=== PATIENT | male | born 1990 | race Caucasian/White ===

== ENCOUNTER 2024-08-06 10:08 | Observation (INO) | payer MEDICAID, SELFPAY ==
[2024-08-06] VITALS (7 sets, daily range): BP systolic 116–139; BP diastolic 80–95; PULSE 63–90; RESP 16–19; TEMP 36.6–37.5; O2SAT 97–100; BMI 28.0
--- NOTE | 2024-08-06 10:28 | EKG_ITS ---
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
[2024-08-06] MEDS: LORazepam 2 MG/ML VIAL IVP (10:40)
--- NOTE | 2024-08-06 10:40 | PC.NURSE ---
PT STATES I'M HERE TO DETOX FROM ALCOHOL. STATES DRINKING HEAVY x 6 MONTHS EVERYDAY. ALSO WITH C/O ABD PAIN, NAUSEA/VOMITING/DIARRHEA X 2 DAYS
[2024-08-06] MEDS: PANTOPRAZOLE INJ 40 MG VIAL 80 MG IV (10:41)
--- NOTE | 2024-08-06 10:41 | XR_ITS ---
Examination: Abdomen sonogram, Limited Date and time of exam: August 06, 2024 1106 hrs. Indications: Right upper abdominal pain vomiting blood beginning 2 days ago Technique: Real-time woodson scale transabdominal sonographic images of the upper abdomen obtained. Findings: Negative for gallstones No gallbladder wall edema Normal common bile duct 0.3 cm Pancreatic head 2.9 cm Liver 15.2 cm fatty infiltration irregular contour no focal liver lesions Normal hepatopedal portal venous flow Patent IVC Impression: Fatty liver, primary hepatocellular disease versus cirrhosis Negative for cholelithiasis No gallbladder wall edema, clinical correlation advised
--- NOTE | 2024-08-06 10:42 | EDNOTE_ITS ---
ED Abdominal Pain RME/HPI General Chief Complaint: Abdominal Pain Stated complaint: VOMITING BLOOD, SHAKING, ETOH WITHDRAWAL Time seen by provider: 08/06/24 10:12 Arrival date/time: 08/06/24 10:08 History of Present Illness (HPI): The patient presents with Right Upper Quadrant (RUQ) abdominal pain associated with nausea, vomiting, and diarrhea (NVD). The patient admits to being alcohol dependent and reports that they stopped drinking two days ago. There is no history of abdominal surgeries. Limitations: no limitations Related Data Previous Rx's ?Medication ?Instructions ?Recorded ibuprofen 800 mg tablet 800 mg PO TID PRN pain #30 tabs 09/06/19 pantoprazole 40 mg tablet,delayed 40 mg PO QDAY #30 tabs 11/02/23 release (Protonix) sucralfate 1 gram tablet (Carafate) 1 g PO BID #30 tabs 11/02/23 hydrocodone 5 mg-acetaminophen 325 1 tab PO BID PRN pain #4 tabs 04/12/24 mg tablet cephalexin 500 mg capsule 500 mg PO BID #20 caps 04/25/24 Allergies Allergy/AdvReac Type Severity Reaction Status Date / Time sulfamethoxazole Allergy Intermediate VOMIT Verified 08/06/24 10:10 trimethoprim Allergy Intermediate VOMIT Verified 08/06/24 10:10 Review of Systems Review of Systems Systems Reviewed: All systems reviewed, normal except as documented ED Exam General Limitations: Present no limitations General appearance: Present alert and in no apparent distress Head Head exam: Present atraumatic Eye Eye exam: Present normal appearance Neck Neck exam: Present normal inspection Respiratory Respiratory exam: Present normal lung sounds bilaterally Cardiovascular Cardiovascular exam: Present regular rate and normal rhythm Abdominal Exam Abdominal exam: Present normal bowel sounds Abdominal tenderness: Present RUQ and mild Extremities Exam Extremities exam: Present normal inspection Back Exam Back exam: Present normal inspection Neurological Exam Neurological exam: Present alert and CN II-XII intact Skin Skin exam: Present warm and dry Course Quality Measures none Orders Category Date Time Status COVID-19 Screening Questionnaire NOW Care 08/06/24 12:11 Active Supervisor Dials NOW Care 08/06/24 10:28 Active Decision to Admit X1 Care 08/06/24 12:11 Active EKG (ED ONLY) *Do not use* NOW Care 08/06/24 10:28 Completed Insert IV NOW Care 08/06/24 10:28 Active EKG (ED Only) Stat Exams 08/06/24 10:28 Draft US abdomen limited Stat Exams 08/06/24 10:41 Taken Alcohol, Blood Medical Stat Lab 08/06/24 10:40 Completed B-Type Natriuretic Peptide Stat Lab 08/06/24 10:40 Completed CBC Stat Lab 08/06/24 10:40 Completed Comprehensive Metabolic Panel Stat Lab 08/06/24 10:40 Completed Drug Screen,Urine Stat Lab 08/06/24 11:27 Completed Magnesium Stat Lab 08/06/24 10:40 Completed Partial Thromboplastin Time Stat Lab 08/06/24 10:40 Completed Prothrombin Time with INR Stat Lab 08/06/24 10:40 Completed Troponin I Stat Lab 08/06/24 10:40 Completed Urinalysis Stat Lab 08/06/24 11:27 Completed Folic Acid Med 08/06/24 11:45 Discontinued 1 mg PO X1 ONE LORazepam [Ativan Inj] Med 08/06/24 10:28 Discontinued 2 mg IVP X1 ONE Multivitamin. Med 08/06/24 11:45 Discontinued 15 ml PO X1 ONE PHENobarbital Inj 130 mg Med 08/06/24 10:40 Discontinued Sodium Chloride 0.9% Flush [NS Flush] 12 ml IVP X1 PHENobarbital Inj 130 mg Med 08/06/24 10:40 Discontinued Sodium Chloride 0.9% Flush [NS Flush] 12 ml IVP X1 Pantoprazole Inj [Protonix Inj] Med 08/06/24 10:29 Discontinued 80 mg IV X1 ONE Thiamine [Vitamin B-1] Med 08/06/24 11:45 Discontinued 100 mg PO X1 ONE Vital Signs Vital signs: Vital Signs Temperature 97.9 F 08/06/24 10:11 Pulse Rate 90 08/06/24 10:11 Respiratory Rate 17 08/06/24 10:11 Blood Pressure 130/82 08/06/24 10:11 Pulse Oximetry (%) 97 08/06/24 10:11 Oxygen Delivery Method Room Air 08/06/24 10:11 Abdominal Pain MDM Patient data External records reviewed:: [facility] previous records Clinical information provided by:: patient Social determinants that could affect healthcare access:: none Patient has the following chronic illnesses:: Alcohol dependence How is presenting disease/condition affected by chronic disease/condition?: caused by Evaluation data The following diagnostics were reviewed and interpreted by me:: lab results Lab and/or radiology exams considered but not ordered:: Not applicable Interpretation Summary: The ultrasound preliminary is only available for review at the time of admission. Patient was started on phenobarbital 260 mg IV push for his alcohol withdrawal. Also, was provided with multivitamin, thiamine and folic acid orally. Did not have any episodes of nausea or vomiting here in the emergency department, therefore appears his single episode of bloody emesis was secondary to gastritis. The patient was presented to the hospitalist team who will admit the patient Medications / Prescriptions Medications or Prescriptions considered but not ordered:: Not applicable Medication administrations:: Medication Administration History Discontinued Medications Phenobarbital Sodium 130 mg/ (Sodium Chloride 12 ml) 0 mg IVP X1 ONE Stop: 08/06/24 10:41 Last Admin: 08/06/24 10:51 Dose: 130 mg Documented By: GM Phenobarbital Sodium 130 mg/ (Sodium Chloride 12 ml) 0 mg IVP X1 ONE Stop: 08/06/24 10:41 Last Admin: 08/06/24 10:52 Dose: 130 mg Documented By: GM Folic Acid (Folic Acid 1 Mg Tablet) 1 mg PO X1 ONE Stop: 08/06/24 11:46 Lorazepam (Lorazepam 2 Mg/Ml Vial) 2 mg IVP X1 ONE Stop: 08/06/24 10:29 Last Admin: 08/06/24 10:40 Dose: 2 mg Documented By: GM Multivitamins/Minerals (Multivitamin 15 Ml Udc) 15 ml PO X1 ONE Stop: 08/06/24 11:46 Pantoprazole Sodium (Pantoprazole Inj 40 Mg Vial) 80 mg IV X1 ONE Stop: 08/06/24 10:30 Last Admin: 08/06/24 10:41 Dose: 80 mg Documented By: GM Thiamine HCl (Thiamine 100 Mg Tablet) 100 mg PO X1 ONE Stop: 08/06/24 11:46 As noted Consultations Consultation(s) initiated? (list below): Yes Diagnosis Differential diagnosis abdominal pain: abdominal pain, gastroenteritis and pancreatitis Most likely diagnosis given after review of the tests above:: Right upper quadrant abdominal pain. Gastritis. Alcoholism. Admission Indicated Admission indicated?: indicated Admission Request Was there a request for admission?: Yes Admission Attestation Admission request attestation: Discussed case with [] from Hospitalist service regarding admission. Discussed patients ED course, exam findings, labs, and radiology results. The Hospitalist [agrees,declines] to accept the patient for admission. Disposition Plan Disposition Plan: Admit Discharge Plan Plan Patient Disposition: Admit Acute Care w/in Hospital Prescriptions/Referrals Prescriptions/Med Rec: No Action ibuprofen 800 mg tablet 800 mg PO TID PRN (Reason: pain) Qty: 30 0RF cephalexin 500 mg capsule 500 mg PO BID Qty: 20 0RF pantoprazole [Protonix] 40 mg tablet,delayed release (DR/EC) 40 mg PO QDAY Qty: 30 0RF sucralfate [Carafate] 1 gram tablet 1 g PO BID Qty: 30 0RF hydrocodone-acetaminophen 5-325 mg tablet 1 tab PO BID MDD 2 PRN (Reason: pain) Qty: 4 0RF Referrals: No Primary/Family,Physician [Primary Care Provider] - In 1 week Problem List Clinical Impression: Alcohol withdrawal Patient/Caregiver Discharge Instructions Print Language: Nicaraguan Stand Alone Forms: Tara Award Info., Patient Portal Info Letter
[2024-08-06] MEDS: PHENobarbital Inj 130 MG, SODIUM CHLORIDE 0.9% FLUSH 12 ML IVP ×2 (10:51→10:52)
[2024-08-06 10:52] LABS: Basophils % (Auto) 1 % (0-2.5); Eosinophils % (Auto) 1 % (0-10); Hematocrit 42.7 % (41.0-53.0); Hemoglobin 15.4 g/dL (13.5-16.0); Immature Granulocytes % (Auto) 0 % (0-0); Immature Granulocytes Auto 0.01 Thou/mm3 (0.00-0.00); Lymphocytes # (Auto) 0.7 Thou/mm3 (1.0-4.8); Lymphocytes % (Auto) 16 % (10-50); Mean Corpuscular HGB Conc 36.1 g/dl (31.0-37.0); Mean Corpuscular Hemoglobin 32.6 pg (25.0-35.0); Mean Corpuscular Volume 90 fL (80-100); Monocytes # (Auto) 0.3 Thou/mm3 (0.0-0.8); Monocytes % (Auto) 8 % (0-12); Neutrophils % (Auto) 74 % (37-80); Nucleated Red Blood Cell % 0 /100 WBC (0); Platelet Count 93 Thou/mm3 (140-440); RDW Standard Deviation 41.6 fL (35.1-43.9); Red Blood Count 4.73 Miln/mm3 (4.50-5.90)
--- NOTE | 2024-08-06 10:53 | PC.NURSE ---
Dr. Gant made aware that pt's CIWA score is 9; no new orders at this time.
[2024-08-06 11:01] LABS: INR 1.1 (0.9-1.3); Partial Thromboplastin Time 25.4 Seconds (22.0-36.0); Prothrombin Time 12.1 Seconds (9.0-12.2)
[2024-08-06 11:12] LABS: Alanine Aminotransferase 22 U/L (10-49); Albumin, Serum 4.8 gm/dL (3.5-5.0); Alcohol, Blood Medical < 3.0 mg/dL (0-10.0); Alkaline Phosphatase 99 U/L (46-116); Anion Gap 10 (7-16); Aspartate Amino Transferase 28 U/L (0-34); BUN/Creatinine Ratio 8 Ratio (12-20); Bilirubin,Total 2.4 mg/dL (0.3-1.2); Blood Urea Nitrogen 8 mg/dL (9-23); Calcium 10.1 mg/dL (8.3-10.6); Calcium (Corrected) 10.1 mg/dL (8.5-10.1); Carbon Dioxide 24.4 mMol/L (20.0-31.0); Chloride 100 mMol/L (98-107); Estimated Creatinine Clearance 116.4 mL/min (>60); Globulin 2.4 gm/dL (2.3-3.5); Glucose 83 mg/dL (74-106); Magnesium 1.9 mg/dL (1.6-2.6); Osmolality,Calculated 265 (275-295); Potassium 3.7 mMol/L (3.4-5.1); Sodium 134 mMol/L (136-145); Total Protein 7.2 gm/dL (5.7-8.2); Troponin I < 0.002 ng/mL (0.0-0.045); eGFR > 60 See Note
[2024-08-06 11:21] LABS: B-Type Natriuretic Peptide 33 pg/mL (0-100)
[2024-08-06 11:34] LABS: Collection Type, Urine Clean Catch; Squamous Epithelial Cell,Urine 0 /hpf (0-5)
[2024-08-06 11:36] LABS: Bilirubin,Urine Negative (Negative); Blood,Urine Negative (Negative); Glucose, Urine Negative (Negative); Ketones,Urine 2+ (Negative); Leukocyte Esterase,Urine Negative (Negative); Nitrite,Urine Negative (Negative); Protein,Urine Trace (Neg - Trace); RBC,Urine 2 /hpf (0-3); Specific Gravity,Urine 1.009 (1.001-1.035); Urobilinogen,Urine Negative mg/dL (0.0-1.0); WBC,Urine < 1 /hpf (0-5)
[2024-08-06 11:42] LABS: Amphetamine/Methamp Scrn,U Negative (Negative); Barbiturate Screen,Urine Positive (Negative); Benzodiazepines Screen,Urine Negative (Negative); Benzoylecgonine Screen, Ur Negative (Negative); Fentanyl Screen,Urine Negative (Negative); Opiate Screen,Urine Negative (Negative); THC Screen,Urine Negative (Negative)
[2024-08-06 11:49] LABS: Clarity,Urine Hazy (Clear/Hazy); Color,Urine Lt-Yellow (Lt Yel-Yel)
--- NOTE | 2024-08-06 12:07 | PRELIM_ITS ---
Right upper quadrant abdominal ultrasound; August 06, 2024 at 1106 hours Clinical history: RUQ pain with vomiting blood after alcohol detox x 2 days.Technique: Grayscale and color flow images of the r ight upper quadrant are provided. Hepatic and portal veins were also imaged with color flow images.Co mparison: No prior study is available for comparison. Findings:The liver demonstrates increased echog enicity with irregular contour. No intrahepatic biliary ductal dilatation. The main portal vein is pa tent and demonstrates hepatopetal flow. No gallbladder calculus or pericholecystic fluid is demonstra zully. Borderline gallbladder wall thickening measuring 3.1 mm. Sonographic Kat sign is negative as per the technologist's note. The common bile duct is normal in caliber at 2.6 mm. The pancreas is unr emarkable to the extent visualized. The visualized inferior vena cava is patent.Impression:Fatty live r with irregular contour. Recommend clinical and laboratory correlation. Borderline gallbladder wall thickening without gallstones or pericholecystic fluid. Suggest follow-up with HIDA scan, if clinical ly indicated. Report Electronically Signed By: Brice Rod 08/06/2024 12:07:20 PM [EST]
--- NOTE | 2024-08-06 12:18 | PC.NURSE ---
RN called pharmacy at this time to request pt's multivitamin; medication not available in the [facility]; per pharmacy, will go bring down pt's medication.
[2024-08-06] MEDS: FOLIC ACID 1 MG TABLET PO ×2 (12:19→21:40)
[2024-08-06] MEDS: THIAMINE 100 MG TABLET PO ×2 (12:19→21:40)
--- NOTE | 2024-08-06 12:48 | ESHP_ITS ---
Documentation for date of: 08/06/24 [facility] History of Present Illness Chief complaint: Alcohol withdrawal, hematemesis History of present illness: 33-year-old male past medical history of severe alcohol use disorder, multiple musculoskeletal surgeries presenting to the ED after he attempted to detoxify himself from alcohol 2 nights ago. Patient states that he has been drinking alcohol daily since November 2023; states that he drinks about four 25 ounce cans hurricanes (about 8% alcohol) along with 90 proof liquor which she takes in 4- 6 shots. Patient states the reason that he has been drinking alcohol is that he is going through a divorce with his ; he would like to quit drinking and is requesting some assistance with that. Patient states that last night he developed a lot of shakiness and felt as if he was having a seizure. Patient also states that he has been having some vomiting episodes, with 1 episode which led to some vomiting of blood. This prompted the patient to present himself to the emergency room and to seek treatment. Patient has rods in his cervical spine, left elbow and right wrist after having some accidents which she attributes to attempting to do dolphin dives and skateboarding. Medical history: As stated above Surgical history: Musculoskeletal surgeries (cervical spine, left elbow, right wrist) Medications: No prescribed medications Allergies: Bactrim causes vomiting Family history: Noncontributory Social history: Patient is from around [place], currently lives in [place] with his ; he is currently going through a divorce/break-up with his . Patient denies smoking tobacco or using illicit drugs; however, has extensive use of alcohol use disorder listed in HPI. ROS: Positive for vomiting, hematemesis, diarrhea, listlessness/stress, shakiness All 12 other systems assessed and the patient denies unless otherwise stated in HPI. In the ED, patient presented with a CIWA score of 9; no episodes of bloody vomiting noted in the ED. Patient was given 2 mg of IV lorazepam, 80 mg of Protonix, 260 mg of phenobarbital and started on thiamine and folate vitamins. Patient will be admitted for alcohol withdrawal along with workup for possible upper GI bleed. Exam Vital Signs Temp Pulse Resp BP Pulse Ox O2 Del Method 98.7 F 86 18 118/87 H 97 Room Air 08/06/24 12:14 08/06/24 12:14 08/06/24 12:14 08/06/24 12:14 08/06/24 12:14 08/06/24 12:14 Narrative Exam Physical Exam: GENERAL: Awake, answering questions appropriately, appears to be stressed secondary to divorce, appears stated age HEENT: NC/AT. Moist mucosa. PERRLA/EOMI. No tongue fasciculations. CARDIO: Heart RRR, no obvious murmurs, no JVD. PULM: No coughing or visible SOB. Lungs CTA B/L. GI: Abdomen soft but tender to palpation in right upper quadrant and epigastric region, Kat sign positive, borborygmi apparent SKIN/MSK/EXT: No wounds/discoloration/rashes/edema/amputations. +Pedal pulses present B/L. No asterixis noted NEURO: Oriented x3, cranial nerves II to XII intact, assistant hairstylist strength 5/5, Moves extremities x4. Results: Labs 08/07/24 05:03 08/07/24 05:03 Labs: Short CBC 08/06/24 Range/Units 10:40 WBC 4.0 (3.8-10.6) Thou/mm3 Hgb 15.4 (13.5-16.0) g/dL Hct 42.7 (41.0-53.0) % Plt Count 93 L (140-440) Thou/mm3 BMP 08/06/24 10:40 Sodium 134 L Potassium 3.7 Chloride 100 Carbon Dioxide 24.4 BUN 8 L Creatinine 1.0 Glucose 83 Calcium 10.1 Cardiac Enzymes 08/06/24 Range/Units 10:40 Troponin I < 0.002 (0.0-0.045) ng/mL Liver Function 08/06/24 Range/Units 10:40 Total Bilirubin 2.4 H (0.3-1.2) mg/dL AST 28 (0-34) U/L ALT 22 (10-49) U/L Alkaline Phosphatase 99 (46-116) U/L Albumin 4.8 (3.5-5.0) gm/dL Urine 08/06/24 Range/Units 11:27 Urine Color Lt-Yellow (Lt Yel-Yel) Urine Clarity Hazy (Clear/Hazy) Urine pH 7.0 (5.0-7.0) Ur Specific Roca 1.009 (1.001-1.035) Urine Protein Trace (Neg - Trace) Urine Glucose (UA) Negative (Negative) Quality Measures Quality Measures none Medications Home Medications and Allergies Allergies Allergy/AdvReac Type Severity Reaction Status Date / Time sulfamethoxazole Allergy Intermediate VOMIT Verified 08/06/24 10:10 trimethoprim Allergy Intermediate VOMIT Verified 08/06/24 10:10 Visit Medications Acetaminophen (Acetaminophen 325 Mg Tablet) 650 mg PO Q6H PRN PRN Reason: Pain 1-3 and/or Fever >100.1 Stop: 09/05/24 12:37 Folic Acid (Folic Acid 1 Mg Tablet) 1 mg PO BID [facility] Stop: 08/11/24 12:44 Lorazepam (Lorazepam 0.5 Mg Tablet) 0.5 mg PO Q4HR PRN PRN Reason: CIWA Score 2-6 Stop: 08/11/24 12:42 Lorazepam (Lorazepam 0.5 Mg Tablet) 1 mg PO Q4HR PRN PRN Reason: CIWA SCORE 7-11 Stop: 08/11/24 12:42 Lorazepam (Lorazepam 0.5 Mg Tablet) 2 mg PO Q4HR PRN PRN Reason: CIWA SCORE 12-15 Stop: 08/11/24 12:42 Ondansetron HCl (Ondansetron Inj 2 Mg/Ml Inj 2 Ml) 4 mg IV Q6H PRN; Protocol PRN Reason: NAUSEA OR VOMITING Stop: 09/05/24 12:37 Sennosides (Senna Tablet) 1 tab PO QDAY PRN; Protocol PRN Reason: constipation Stop: 09/05/24 12:37 Thiamine HCl (Thiamine 100 Mg Tablet) 100 mg PO BID [facility] Stop: 08/11/24 12:44 Discontinued Medications Phenobarbital Sodium 130 mg/ (Sodium Chloride 12 ml) 0 mg IVP X1 ONE Stop: 08/06/24 10:41 Last Admin: 08/06/24 10:51 Dose: 130 mg Phenobarbital Sodium 130 mg/ (Sodium Chloride 12 ml) 0 mg IVP X1 ONE Stop: 08/06/24 10:41 Last Admin: 08/06/24 10:52 Dose: 130 mg Folic Acid (Folic Acid 1 Mg Tablet) 1 mg PO X1 ONE Stop: 08/06/24 11:46 Last Admin: 08/06/24 12:19 Dose: 1 mg Lorazepam (Lorazepam 2 Mg/Ml Vial) 2 mg IVP X1 ONE Stop: 08/06/24 10:29 Last Admin: 08/06/24 10:40 Dose: 2 mg Multivitamins/Minerals (Multivitamin 15 Ml Udc) 15 ml PO X1 ONE Stop: 08/06/24 11:46 Pantoprazole Sodium (Pantoprazole Inj 40 Mg Vial) 80 mg IV X1 ONE Stop: 08/06/24 10:30 Last Admin: 08/06/24 10:41 Dose: 80 mg Thiamine HCl (Thiamine 100 Mg Tablet) 100 mg PO X1 ONE Stop: 08/06/24 11:46 Last Admin: 08/06/24 12:19 Dose: 100 mg Assessment & Plan Plan 33-year-old male past medical history of severe alcohol use disorder, multiple musculoskeletal surgeries presenting after he attempted to detoxify himself from alcohol 2 nights ago will be admitted for alcohol withdrawal along with workup for possible upper GI bleed. #Alcohol use disorder #Possible upper GI bleed? #Hyperbilirubinemia 6?points Child Class A Life Expectancy : 15-20 years Abdominal surgery ney- operative mortality: 10% 11?points MELD Score (2016)* 6.0% Estimated 3-Month Mortality Patient states that he has been drinking alcohol daily since November 2023 Drinks about four 25 ounce cans hurricanes (about 8% alcohol) along with 90 proof liquor which she takes in 4-6 shots States that last night he developed a lot of shakiness and felt as if he was having a seizure Patient also states that he has been having some vomiting episodes, with 1 episode which led to some vomiting of blood In the ED, patient's CIWA was 9; given IV Lorazepam 2mg (x1) and Phenobarbital 130mg IV (x2) along with vitamins Protonix 80mg IV x1 given in ED U/S Abd shows: Fatty liver, primary hepatocellular disease versus cirrhosis Negative for cholelithiasis No gallbladder wall edema Plan: CIWA protocol GI, Dr. Leslie, consulted - appreciate recs Likely EGD on 08/07; NPO after midnight Librium 25mg TID SBP prophylaxis Thiamine and Folate supplementation #Thrombocytopenia Presents with mild thrombocytopenia, Plt of 93 Likely secondary to acutely ill status vs. alcohol use disorder Plan: Will follow-up with morning labs #Electrolyte abnormalities Mild hypokalemia, hypomagnesemia Plan: Will replete as needed Follow-up with morning labs Hospital Management: Lines: PIV x 2 Bowel: Senna as needed Diet: Regular, n.p.o. after midnight GI prophylaxis: Given 80 mg Protonix x 1 DVT prophylaxis: Patient ambulating, not required Dispo: EGD with Dr. Leslie at 08/07 AM Code: Full Patient seen and examined with attending Dr. Cantu and senior resident Dr. Padmini Sadler, PGY-1 Attending Provider Attestation/Addendum In short, patient is a 33-year-old male with significant past medical history of alcohol abuse who presented to the ED for symptoms of withdrawal. Apparently yesterday he had seizure-like symptoms in which she started getting very tremulous and fell off his couch however was awake and alert during the whole episode and able to recall the events. Patient has been a daily drinker since approximately November 2023 drinking he states 3-4 hurricanes which apparently are cans of malt liquor. He is apparently going through a divorce with his and having a hard time in life however denies any SI at this time. He did endorse what look like some blood in his vomitus 1 to 2 days prior to admission. ASSESSMENT: #Acute alcohol withdrawal #Possible upper GI bleed secondary to gastritis versus PUD versus varices versus Jana-Orta tear etc. #Hyperbilirubinemia #Thrombocytopenia 1. [facility] protocol, will also start Librium 25 mg twice daily 2. Right upper quadrant ultrasound ordered in setting of elevated T. bili 3. Will start Protonix octreotide drip and ceftriaxone for possible GI bleed in the setting of possible decompensated liver failure due to longstanding alcohol abuse. 4. Gastroenterology consulted by ED, EGD planned Chronic Conditions: #Alcohol abuse Antimicrobials: None DISPO: Likely discharge in 1 to 2 days home pending improvement in withdrawal symptoms
--- NOTE | 2024-08-06 13:10 | PC.CC ---
Ismael Yarbrough is a 33-year-old male admitted for vomiting blood, shaking, etoh withdrawal. Toppiece Chopper made contact with Pt at bedside to complete initial assessment and discuss discharge disposition. Role and reason for the contact was explained to Pt. Demographic information was verified. Pt identified , Becca Yarbrough [phone] as surrogate decision maker. Pt is independent with all ADLs, no source of DME. PCP is [facility]. [facility]acy [facility] choice [facility]. At time of discharge patient will return home, family will provide transportation. Discharge Plan: Home Next of Kin: , Becca Yarbrough [phone] PCP: [facility]
[2024-08-06] MEDS: MULTIVITAMIN 15 ML UDC PO (13:36)
[2024-08-06] MEDS: LORazepam 0.5 MG TABLET PO (13:47)
--- NOTE | 2024-08-06 14:26 | PC.NURSE ---
Attempted to call report at this time; nurse unavailable at this time.
[2024-08-06] MEDS: chlordiazePOXIDE HCl 25 MG CAPSULE PO ×2 (14:32→21:40)
[2024-08-06] MEDS: cefTRIAXone/D5w 1gm IV premix 50 ML IV (18:21)
[2024-08-06] MEDS: OCTREOTIDE ACET INJ 1,000 MCG in SODIUM CHLORIDE 0.9% 100 ML 5.1 MCG IV (18:22)
[2024-08-06] MEDS: LORazepam 0.5 MG TABLET 1 MG PO (19:40)
[2024-08-06] MEDS: PANTOPRAZOLE INJ 40 MG VIAL IV (21:41)
[2024-08-07] VITALS (15 sets, daily range): BP systolic 113–165; BP diastolic 77–113; PULSE 20–96; RESP 10–98; TEMP 36.1–36.6; O2SAT 96–152; BMI 28.1
--- NOTE | 2024-08-07 | PC.NURSE ---
Patient HR decreased from baseline to 50BPM. PT was easily arousable and appeared asymptomatic. Dr Francisco Murphy was notified. No further orders given.
[2024-08-07 06:17] LABS: Basophils % (Auto) 1 % (0-2.5); Eosinophils # (Auto) 0.1 Thou/mm3 (0.0-0.5); Eosinophils % (Auto) 2 % (0-10); Hematocrit 42.1 % (41.0-53.0); Immature Granulocytes % (Auto) 0 % (0-0); Immature Granulocytes Auto 0.01 Thou/mm3 (0.00-0.00); Lymphocytes # (Auto) 1.1 Thou/mm3 (1.0-4.8); Lymphocytes % (Auto) 30 % (10-50); Mean Corpuscular HGB Conc 35.6 g/dl (31.0-37.0); Mean Corpuscular Hemoglobin 33.3 pg (25.0-35.0); Mean Corpuscular Volume 94 fL (80-100); Monocytes # (Auto) 0.5 Thou/mm3 (0.0-0.8); Monocytes % (Auto) 13 % (0-12); Neutrophils # (Auto) 1.9 Thou/mm3 (1.8-7.7); Neutrophils % (Auto) 54 % (37-80); Nucleated Red Blood Cell % 0 /100 WBC (0); Platelet Count 94 Thou/mm3 (140-440); RDW Standard Deviation 43.2 fL (35.1-43.9); White Blood Count 3.6 Thou/mm3 (3.8-10.6)
[2024-08-07 06:26] LABS: INR 1.1 (0.9-1.3); Prothrombin Time 11.9 Seconds (9.0-12.2)
[2024-08-07] MEDS: chlordiazePOXIDE HCl 25 MG CAPSULE PO ×2 (06:33→10:00)
--- NOTE | 2024-08-07 07:06 | ESPR_ITS ---
Documentation for date of: 08/07/24 Subjective Subjective Interval history: 08/07/2024; patient was seen and examined by bedside with family present in room during exam, no overnight events reported, patient reports feeling well and has no complaints, no anxiety tactile hallucinations, agitation or headache reported. CBC CMP unchanged except for decrease in T.bili and normalization of LFTs. Patient's vitals noted for mild elevation in BP, will reduce patient's chlordiazepoxide to once daily and continue with lorazepam as needed. Biliary US noted for fatty liver with possible primary hepatitis vs cirrhosis, no cholelithiasis or cholecystitis noted. GI was consulted for 1 episode of hematemesis that the patient reported, no change in hemoglobin noted since admission and no recurrence of hematemesis, patient was kept n.p.o. since midnight possible EGD, will continue patient on current management with twice daily Pantoparazole and Octreotide drip pending GI recommendations. Exam Vital Signs Temp Pulse Resp BP Pulse Ox O2 Del Method 97.0 F 20 L 98 H 152/92 H 152 H Room Air 08/07/24 04:00 08/07/24 04:00 08/07/24 04:00 08/07/24 04:00 08/07/24 04:00 08/07/24 00:00 Narrative Exam General: well developed, well nourished, laying in bed, not in acute distress, answering questions appropriately, making appropriate eye contact HEENT: Normocephalic, atraumatic, EOMI, PERRLA, moist oral mucosa, normal dentition. Cardiac: Regular rate and rhythm, normal S1/S2, no murmurs. Lungs: Clear to auscultation with no wheezings or crackles, normal respiratory effort and rate. Abdomen: Soft, nontender, nondistended, positive bowel sounds in all quadrants. No guarding or rebound tenderness. Neuro: Alert and oriented to name and date of and place. CN II- XII intact, no focal motor deficit noted, BUE/BLE motor function and sensation intact and equal. Extremities: Normal to inspection, no edema, no cyanosis Psych: Normal mood and affect. Objective Labs 08/08/24 06:09 08/08/24 06:09 Labs: Laboratory Results - last 24 hr 08/06/24 08/06/24 08/07/24 10:40 11:27 05:03 WBC 4.0 3.6 L RBC 4.73 4.50 Hgb 15.4 15.0 Hct 42.7 42.1 MCV 90 94 MCH 32.6 33.3 MCHC 36.1 35.6 RDW Std Deviation 41.6 43.2 Plt Count 93 L 94 L Neut % (Auto) 74 54 Lymph % (Auto) 16 30 [place] % (Auto) 8 13 H Eos % (Auto) 1 2 Baso % (Auto) 1 1 Neut # (Auto) 3.0 1.9 Lymph # (Auto) 0.7 L 1.1 [place] # (Auto) 0.3 0.5 Eos # (Auto) 0.0 0.1 Baso # (Auto) 0.0 0.0 Immature Gran # (Auto) 0.01 H 0.01 H Absolute Nucleated RBC 0.00 0.00 Immature Gran % 0 0 Nucleated RBC % 0 0 PT 12.1 11.9 INR 1.1 1.1 APTT 25.4 Sodium 134 L Potassium 3.7 Chloride 100 Carbon Dioxide 24.4 Anion Gap 10 BUN 8 L Creatinine 1.0 Estim Creat Clear Calc 116.4 eGFR > 60 BUN/Creatinine Ratio 8 L Glucose 83 Calculated Osmolality 265 L Calcium 10.1 Corrected Calcium 10.1 Magnesium 1.9 Total Bilirubin 2.4 H AST 28 ALT 22 Alkaline Phosphatase 99 Troponin I < 0.002 B-Natriuretic Peptide 33 Total Protein 7.2 Albumin 4.8 Globulin 2.4 Albumin/Globulin Ratio 2.0 Ur Collection Type Clean Catch Urine Color Lt-Yellow Urine Clarity Hazy Urine pH 7.0 Ur Specific Arley 1.009 Urine Protein Trace Urine Glucose (UA) Negative Urine Ketones 2+ A Urine Blood Negative Urine Nitrite Negative Urine Bilirubin Negative Urine Urobilinogen (Auto) Negative Ur Leukocyte Esterase Negative Urine RBC 2 Urine WBC < 1 Ur Squamous Epith Cells 0 Urine Bacteria None Urine Opiates Screen Negative Urine Fentanyl Screen Negative Ur Barbiturates Screen Positive A U Amphetamin/Meth Scrn Negative U Benzodiazepines Scrn Negative U Cocaine Metab Screen Negative U Marijuana (THC) Screen Negative Ethyl Alcohol < 3.0 Quality Measures Quality Measures none Assessment & Plan Assessment Current Active Medications: Generic Name Dose Route Start Last Admin Trade Name Freq PRN Reason Stop Dose Admin Acetaminophen 650 mg 08/06/24 12:38 Acetaminophen 325 Mg Tablet PO 09/05/24 12:37 Q6H PRN Pain 1-3 and/or Fever >100.1 Chlordiazepoxide HCl 25 mg 08/06/24 14:30 08/07/24 06:33 Chlordiazepoxide Hcl 25 Mg Capsule PO 08/11/24 14:29 25 mg TID OBDULIO Administration Folic Acid 1 mg 08/06/24 12:45 08/06/24 21:40 Folic Acid 1 Mg Tablet PO 08/11/24 12:44 1 mg BID OBDULIO Administration Ceftriaxone Sodium/Dextrose 50 mls @ 100 mls/hr 08/06/24 15:00 08/06/24 18:21 Rocephin/D5w 1gm Iv Premix IV 08/13/24 14:59 100 mls/hr QDAY OBDULIO Administration Octreotide Acetate 1,000 mcg/ 102 mls @ 5.1 mls/hr 08/06/24 17:55 08/06/24 18:22 Sodium Chloride IV 08/11/24 17:55 50 mcg/hr .Q20H OBDULIO 5.1 mls/hr Administration Protocol 50 MCG/HR Lorazepam 0.5 mg 08/06/24 12:43 08/06/24 13:47 Lorazepam 0.5 Mg Tablet PO 08/11/24 12:42 0.5 mg Q4HR PRN Administration CIWA Score 2-6 Lorazepam 1 mg 08/06/24 12:43 08/06/24 19:40 Lorazepam 0.5 Mg Tablet PO 08/11/24 12:42 1 mg Q4HR PRN Administration CIWA SCORE 7-11 Lorazepam 2 mg 08/06/24 12:43 Lorazepam 0.5 Mg Tablet PO 08/11/24 12:42 Q4HR PRN CIWA SCORE 12-15 Lorazepam 0.5 mg 08/06/24 15:02 Lorazepam 2 Mg/Ml Vial IV 08/11/24 15:01 Q2HR PRN CIWA SCORE 8-13 Lorazepam 1 mg 08/06/24 15:02 Lorazepam 2 Mg/Ml Vial IV 08/11/24 15:01 Q2HR PRN CIWA SCORE 14-19 Lorazepam 2 mg 08/06/24 15:02 Lorazepam 2 Mg/Ml Vial IV 08/11/24 15:01 Q2HR PRN CIWA SCORE 20-25 Ondansetron HCl 4 mg 08/06/24 12:38 Ondansetron Inj 2 Mg/Ml Inj 2 Ml IV 09/05/24 12:37 Q6H PRN NAUSEA OR VOMITING Protocol Pantoprazole Sodium 40 mg 08/06/24 22:00 08/06/24 21:41 Pantoprazole Inj 40 Mg Vial IV 09/05/24 21:59 40 mg BID OBDULIO Administration Sennosides 1 tab 08/06/24 12:38 Senna Tablet PO 09/05/24 12:37 QDAY PRN constipation Protocol Thiamine HCl 100 mg 08/06/24 12:45 08/06/24 21:40 Thiamine 100 Mg Tablet PO 08/11/24 12:44 100 mg BID OBDULIO Administration Plan 33-year-old male past medical history of severe alcohol use disorder, multiple musculoskeletal surgeries presenting after he attempted to detoxify himself from alcohol 2 nights ago will be admitted for alcohol withdrawal along with workup for possible upper GI bleed. 08/07/2024; patient was seen and examined by bedside with family present in room during exam, no overnight events reported, patient reports feeling well and has no complaints, no anxiety tactile hallucinations, agitation or headache reported. CBC CMP unchanged except for decrease in T.bili and normalization of LFTs. Patient's vitals noted for mild elevation in BP, will reduce patient's chlordiazepoxide to once daily and continue with lorazepam as needed. Biliary US noted for fatty liver with possible primary hepatitis vs cirrhosis, no cholelithiasis or cholecystitis noted. GI was consulted for 1 episode of hematemesis that the patient reported, no change in hemoglobin noted since admission and no recurrence of hematemesis, patient was kept n.p.o. since midnight possible EGD, will continue patient on current management with twice daily Pantoparazole and Octreotide drip pending GI recommendations. #Alcohol use disorder #Possible upper GI bleed? #Hyperbilirubinemia 6?points Child Class A Life Expectancy : 15-20 years Abdominal surgery ney- operative mortality: 10% 11?points MELD Score (2016)* 6.0% Estimated 3-Month Mortality Patient states that he has been drinking alcohol daily since November 2023 Drinks about four 25 ounce cans hurricanes (about 8% alcohol) along with 90 proof liquor which she takes in 4-6 shots States that last night he developed a lot of shakiness and felt as if he was having a seizure Patient also states that he has been having some vomiting episodes, with 1 episode which led to some vomiting of blood In the ED, patient's CIWA was 9; given IV Lorazepam 2mg (x1) and Phenobarbital 130mg IV (x2) along with vitamins Protonix 80mg IV x1 given in ED U/S Abd shows: Fatty liver, primary hepatocellular disease versus cirrhosis Negative for cholelithiasis No gallbladder wall edema Plan: CIWA protocol GI, Dr. Leslie, consulted - appreciate recs Likely EGD on 08/07; NPO after midnight Librium 25mg TID SBP prophylaxis Thiamine and Folate supplementation #Thrombocytopenia Presents with mild thrombocytopenia, Plt of 93 Likely secondary to acutely ill status vs. alcohol use disorder Plan: Will follow-up with morning labs #Electrolyte abnormalities Mild hypokalemia, hypomagnesemia Plan: Will replete as needed Follow-up with morning labs Chronic Conditions: #Alcohol abuse visitor services coordinator referral. Patient was educated extensively regarding devastating effects of alcohol abuse. Hospital Management: Lines: PIV x 2 Bowel: Senna as needed Diet: Regular, n.p.o. after midnight GI prophylaxis: Given 80 mg Protonix x 1 DVT prophylaxis: Patient ambulating, not required Dispo: EGD with Dr. Leslie at 08/07 AM Code: Full Patient's plan of care discussed with attending Dr. Pepe Vyas, PGY-3 Attending Provider Attestation/Addendum I have discussed and was present for the essential components of the history, physical examination, diagnosis, and treatment plan with the resident. I agree with the patient's care as documented by the resident and amended herein by me. Jerald Cantu DO. Although this document has been carefully reviewed, there may still be some phonetic and other typographical errors. These errors are purely grammatical due to imperfections in the software program and should not be construed in any way to compromise the substance of the patient's medical care during this visit.
[2024-08-07 07:14] LABS: Alanine Aminotransferase 18 U/L (10-49); Albumin, Serum 4.7 gm/dL (3.5-5.0); Albumin/Globulin Ratio 2.1 (1.2-2.2); Alkaline Phosphatase 86 U/L (46-116); Anion Gap 9 (7-16); Aspartate Amino Transferase 22 U/L (0-34); BUN/Creatinine Ratio 9 Ratio (12-20); Bilirubin,Total 1.3 mg/dL (0.3-1.2); Blood Urea Nitrogen 11 mg/dL (9-23); Calcium 9.7 mg/dL (8.3-10.6); Calcium (Corrected) 9.7 mg/dL (8.5-10.1); Carbon Dioxide 25.3 mMol/L (20.0-31.0); Cardiac Risk Estimate 2.2 RATIO (4.0-6.7); Chloride 100 mMol/L (98-107); Cholesterol 197 mg/dL (132-200); Creatinine (Component) 1.2 mg/dL (0.6-1.3); Estimated Creatinine Clearance 95.3 mL/min (>60); Globulin 2.2 gm/dL (2.3-3.5); Glucose 108 mg/dL (74-106); HDL Cholesterol 90 mg/dL (40-60); LDL Cholesterol,Calculated 94 mg/dL (0-130); Magnesium 2.2 mg/dL (1.6-2.6); Osmolality,Calculated 268 (275-295); Potassium 4.2 mMol/L (3.4-5.1); Sodium 134 mMol/L (136-145); Total Protein 6.9 gm/dL (5.7-8.2); Triglycerides 65 mg/dL (30-150); eGFR > 60 See Note
[2024-08-07 07:34] LABS: Thyroid Stimulating Hormone 0.84 uIU/mL (0.55-4.78)
--- NOTE | 2024-08-07 09:06 | PC.SS ---
rounding note: Possible colonoscopy. Possible d/c home today
[2024-08-07] MEDS: THIAMINE 100 MG TABLET PO ×2 (09:08→20:16)
[2024-08-07] MEDS: PANTOPRAZOLE INJ 40 MG VIAL IV ×2 (09:08→20:15)
[2024-08-07] MEDS: FOLIC ACID 1 MG TABLET PO ×2 (09:08→20:16)
[2024-08-07] MEDS: cefTRIAXone/D5w 1gm IV premix 50 ML IV (09:08)
[2024-08-07] MEDS: LORazepam 0.5 MG TABLET PO ×3 (09:31→22:09)
[2024-08-07] MEDS: OCTREOTIDE ACET INJ 1,000 MCG in SODIUM CHLORIDE 0.9% 100 ML 5.1 MCG IV (14:16)
--- NOTE | 2024-08-07 16:20 | SUR.PHASEI ---
Arrived to [facility] [place] [facility] via [facility]. Report received from Terrie MOORE. Resting with eyes open. No c/o pain or discomfort. No s/o distress. Responding to questions and commands appropriately.
--- NOTE | 2024-08-07 16:41 | SUR.PHASEI ---
Tolerating ice chips PO. Conversing with staff. Responding to questions and commands appropriately. No c/o pain or discomfort.
--- NOTE | 2024-08-07 16:46 | SUR.PHASEI ---
Report given to Victoriano MOOREflash developer.
--- NOTE | 2024-08-07 16:50 | SUR.PHASEI ---
Taken to room 267 via gurney. Ambulated to bed, tolerated well. No c/o pain or discomfort. Call light withing reach. Making a call on his cell phone. Victoriano MOORE made aware of patient being back in his room. traffic monitor specialist connected.
--- NOTE | 2024-08-07 18:57 | PD.IMCONS ---
HPI Data of Consult Requesting Physician: Piyush Cantu DO Primary Care Provider: Physician No Primary/Family Consult Narrative Reason for consult: Hematemesis, pain abdomen, nausea vomiting, History of present illness: Late entry for the note Patient evaluated at the request of the ER physician for nausea vomiting pain abdomen and episode of hematemesis Patient drinks extensively Said that he has not drank for 2 days Patient drinks hard liquor The episode of hematemesis was coffee-ground and not bright red blood cc:: cc: Piyush Cantu DO Review of Systems Review of Systems Systems Reviewed: All systems reviewed, normal except as documented Meds Home Medications and Allergies Allergies Allergy/AdvReac Type Severity Reaction Status Date / Time sulfamethoxazole Allergy Intermediate VOMIT Verified 08/06/24 10:10 trimethoprim Allergy Intermediate VOMIT Verified 08/06/24 10:10 Exam Vital Signs Temp Pulse Resp BP Pulse Ox O2 Del Method O2 Flow Rate 97.6 F 68 14 133/96 H 97 Room Air 3 08/07/24 16:50 08/07/24 16:50 08/07/24 16:50 08/07/24 16:50 08/07/24 16:50 08/07/24 16:00 08/07/24 16:15 Constitutional Comments: Alert oriented Routine Respiratory Exam Comments: Normal to auscultation Routine Abdominal Exam Comments: Soft nontender Results Labs 08/07/24 05:03 08/07/24 05:03 Labs: Short CBC 08/07/24 Range/Units 05:03 WBC 3.6 L (3.8-10.6) Thou/mm3 Hgb 15.0 (13.5-16.0) g/dL Hct 42.1 (41.0-53.0) % Plt Count 94 L (140-440) Thou/mm3 BMP 08/07/24 05:03 Sodium 134 L Potassium 4.2 D Chloride 100 Carbon Dioxide 25.3 BUN 11 Creatinine 1.2 Glucose 108 H Calcium 9.7 Liver Function 08/07/24 Range/Units 05:03 Total Bilirubin 1.3 H D (0.3-1.2) mg/dL AST 22 (0-34) U/L ALT 18 (10-49) U/L Alkaline Phosphatase 86 (46-116) U/L Albumin 4.7 (3.5-5.0) gm/dL Assessment and Plan Additional Assessment & Plan Additional Plan: # Pain abdomen right upper quadrant # Pain abdomen epigastric # Hematemesis in the setting of chronic liver disease secondary to alcohol with thrombocytopenia Plan Octreotide drip at 50 mcg/h after a 50 mcg bolus IV Protonix Serial CBC Watch for signs symptoms of alcohol withdrawal Consent obtained for fiberoptic esophagogastroduodenoscopy with possible therapeutic intervention under intravenous moderate sedation Thank you very much once again for the opportunity to participate in the care of this patient
[2024-08-08] VITALS: BP 119/76; PULSE 75; PULSE 81; RESP 18; TEMP 36.2; O2SAT 97
[2024-08-08 04:00] VITALS: BP 146/100; PULSE 55; PULSE 78; RESP 12; TEMP 36.2; O2SAT 97
[2024-08-08 06:00] VITALS: BMI 28.1
[2024-08-08 06:56] LABS: Basophils % (Auto) 1 % (0-2.5); Eosinophils # (Auto) 0.1 Thou/mm3 (0.0-0.5); Eosinophils % (Auto) 2 % (0-10); Hematocrit 42.5 % (41.0-53.0); Hemoglobin 14.9 g/dL (13.5-16.0); Immature Granulocytes % (Auto) 0 % (0-0); Immature Granulocytes Auto 0.01 Thou/mm3 (0.00-0.00); Lymphocytes # (Auto) 1.6 Thou/mm3 (1.0-4.8); Lymphocytes % (Auto) 34 % (10-50); Mean Corpuscular HGB Conc 35.1 g/dl (31.0-37.0); Mean Corpuscular Hemoglobin 32.7 pg (25.0-35.0); Mean Corpuscular Volume 93 fL (80-100); Monocytes # (Auto) 0.5 Thou/mm3 (0.0-0.8); Monocytes % (Auto) 12 % (0-12); Neutrophils # (Auto) 2.3 Thou/mm3 (1.8-7.7); Neutrophils % (Auto) 51 % (37-80); Nucleated Red Blood Cell % 0 /100 WBC (0); Platelet Count 108 Thou/mm3 (140-440); RDW Standard Deviation 43.4 fL (35.1-43.9); Red Blood Count 4.55 Miln/mm3 (4.50-5.90); White Blood Count 4.6 Thou/mm3 (3.8-10.6)
[2024-08-08 07:32] LABS: Alanine Aminotransferase 22 U/L (10-49); Albumin, Serum 4.6 gm/dL (3.5-5.0); Albumin/Globulin Ratio 2.2 (1.2-2.2); Alkaline Phosphatase 79 U/L (46-116); Anion Gap 7 (7-16); Aspartate Amino Transferase 22 U/L (0-34); BUN/Creatinine Ratio 9 Ratio (12-20); Bilirubin,Total 0.6 mg/dL (0.3-1.2); Blood Urea Nitrogen 11 mg/dL (9-23); Calcium 9.6 mg/dL (8.3-10.6); Calcium (Corrected) 9.6 mg/dL (8.5-10.1); Carbon Dioxide 27.5 mMol/L (20.0-31.0); Chloride 100 mMol/L (98-107); Creatinine (Component) 1.2 mg/dL (0.6-1.3); Estimated Creatinine Clearance 95.3 mL/min (>60); Globulin 2.1 gm/dL (2.3-3.5); Glucose 114 mg/dL (74-106); Osmolality,Calculated 268 (275-295); Potassium 3.7 mMol/L (3.4-5.1); Sodium 134 mMol/L (136-145); Total Protein 6.7 gm/dL (5.7-8.2); eGFR > 60 See Note
--- NOTE | 2024-08-08 07:58 | PD.RESDS ---
Planned Discharge Date 08/08/24 DS: Providers Provider Date of admission: 08/06/24 12:39 Primary care physician: Physician No Primary/Family Admitting Provider: Piyush Cantu DO Attending Provider on Admission: Piyush Cantu DO Consults: 08/06/24 12:43 Consult to Gastroenterology Routine Comment: Alcohol use disorder; hematemesis Consulting Provider: Keesha Leslie Attending Provider on DC: Coy Vyas MD Discharging Provider: Coy Vyas MD DS: Diagnosis Problem List Completed Was Problem List Reviewed/Reconciled?: Yes Hospital Course Hospital Course Hospital course: 33-year-old male patient with PMHx significant for Alcohol abuse, admitted for reported episode of hematemesis by patient/upper GI bleed and alcohol withdrawal. Patient was started on CIWA protocol and GI were consulted Throughout patient's stay hemoglobin was stable and patient did not require any RBC transfusions, platelets, T. bili improved, patient counseled extensively regarding devastating effects of alcohol abuse, he was cleared for discharge by GI, patient was found to be stable and fit for discharge, patient was discharged on following instructions/recommendations; Take librium one tablet once a day for 3 days. Stop drinking alcohol completely. Utilize available resources for alcohol addiction to aid in quitting process. Maintain adequate daily hydration of around 64oz of water daily. F/U with your PCP within 2 weeks of discharge. Return to ED if symptoms recur or worsen. #Alcohol use disorder #Upper GI bleed #Hyperbilirubinemia #Thrombocytopenia #Electrolyte abnormalities Chronic Conditions: #Alcohol abuse Status at Discharge Functional status at discharge: independent ambulation Overall status at discharge: patient is back to baseline Time Spent with Patient Time attestation: Total time spent providing and/or coordinating discharge services: 35 minutes Exam Vital Signs Temp Pulse Resp BP Pulse Ox O2 Del Method O2 Flow Rate 97.2 F 78 12 146/100 H 97 Room Air 3 08/08/24 04:00 08/08/24 04:00 08/08/24 04:00 08/08/24 04:00 08/08/24 04:00 08/08/24 04:00 08/07/24 16:15 Narrative Exam General: well developed, well nourished, laying in bed, not in acute distress, answering questions appropriately, making appropriate eye contact HEENT: Normocephalic, atraumatic, EOMI, PERRLA, moist oral mucosa, normal dentition. Cardiac: Regular rate and rhythm, normal S1/S2, no murmurs. Lungs: Clear to auscultation with no wheezings or crackles, normal respiratory effort and rate. Abdomen: Soft, nontender, nondistended, positive bowel sounds in all quadrants. No guarding or rebound tenderness. Neuro: Alert and oriented to name and date of and place. CN II- XII intact, no focal motor deficit noted, BUE/BLE motor function and sensation intact and equal. Extremities: Normal to inspection, no edema, no cyanosis Psych: Normal mood and affect. Discharge Plan Plan Patient Disposition: HOME (Self Care) Patient condition on transfer: Stable Prescriptions/Referrals Prescriptions/Med Rec: New chlordiazepoxide HCl 25 mg capsule 25 mg PO QDAY Qty: 3 0RF Referrals: No Primary/Family,Physician [Primary Care Provider] - Patient/Caregiver Discharge Instructions Other Discharge Activity Instructions:: Take librium one tablet once a day for 3 days. Stop drinking alcohol completely. Utilize available resources for alcohol addiction to aid in quitting process. Maintain adequate daily hydration of around 64oz of water daily. F/U with your PCP within 2 weeks of discharge. Return to ED if symptoms recur or worsen. Education Materials: Alcohol Addiction, Addiction: Getting Help, Addiction Recovery Counseling Print Language: Belgian Stand Alone Forms: Tara Award Info., Patient Portal Info Letter, Work/Release Restrictions Discharge Order Discharge Orders: Discharge (Routine); Ordered 08/08/24 Ordered By: Coy Vyas Quality Discharge Quality Measures VTE prophylaxis Attestestation MD Attestation I have discussed and was present for the essential components of the discharge history, physical examination, diagnosis, and discharge treatment plan with the resident. I agree with the patient's discharge care as documented by the resident and amended herein by me. Jerald Cantu DO. The patient understood all discharge instructions, all questions were answered satisfactorily. The patient was instructed to return to the Emergency Department is symptoms worsened or persisted. Patient was stable, afebrile, tolerating p.o. intake and ambulatory time of discharge. Patient will be discharged with a short course of Librium, we strongly emphasized the need for alcohol cessation especially with demonstrated esophageal varices on EGD. The patient understood, all questions answered. Although this document has been carefully reviewed, there may still be some phonetic and other typographical errors. These errors are purely grammatical due to imperfections in the software program and should not be construed in any way to compromise the substance of the patient's medical care during this visit.
[2024-08-08 08:00] VITALS: BP 127/90; PULSE 64; PULSE 67; RESP 18; TEMP 36.1; O2SAT 99
[2024-08-08] MEDS: FOLIC ACID 1 MG TABLET PO (08:46)
[2024-08-08] MEDS: PANTOPRAZOLE INJ 40 MG VIAL IV (08:46)
[2024-08-08] MEDS: THIAMINE 100 MG TABLET PO (08:46)
[2024-08-08] MEDS: chlordiazePOXIDE HCl 25 MG CAPSULE PO (08:47)
[2024-08-08] MEDS: cefTRIAXone/D5w 1gm IV premix 50 ML IV (08:47)
[2024-08-08 10:36] VITALS: BP 124/90
[2024-08-08 11:00] VITALS: BP 135/86; PULSE 88; RESP 19; TEMP 36.4; O2SAT 98
== END 2024-08-08 11:45 | disposition home or self-care (01) ==
LOC: SERX 12:11 → S2NX 08-07 09:58 → SERHOLD 08-11 07:07 → S2NX 08-11 07:08
PROVIDERS: Nurse Practitioner Primary Care; Specialist; Admitting Provider Student in an Organized Health Care Education/Training Program; Emergency Provider Emergency Medicine; Visit Provider Student in an Organized Health Care Education/Training Program
PROC: (CPT 43239; principal; 2024-08-07 16:00)
DX: F10.239 Alcohol dependence with withdrawal, unspecified (principal); K76.0 Fatty (change of) liver, not elsewhere classified; K92.0 Hematemesis; D69.6 Thrombocytopenia, unspecified; E83.42 Hypomagnesemia; E87.6 Hypokalemia; Y90.9 Presence of alcohol in blood, level not specified; E87.8 Other disorders of electrolyte and fluid balance, not elsewhere classified; K70.9 Alcoholic liver disease, unspecified; Z63.5 Disruption of family by separation and divorce; Z01.810 Encounter for preprocedural cardiovascular examination; K20.91 Esophagitis, unspecified with bleeding; K29.71 Gastritis, unspecified, with bleeding; I85.01 Esophageal varices with bleeding
CPT/HCPCS: 43235; 36415; 76705; 80053; 80061; 80307; 80320; 81001; 83615; 83735; 83880; 84100; 84443; 84484; 85025; 85610; 85730; 93005; 96365; 96366; 96375; 99285; A4216; G0378; J0696; J1200; J2060; J2250; J2354; J2470; J2560; J3010; J7050; A9270; G0480

== ENCOUNTER 2024-09-16 10:55 | Emergency (ER) | payer MEDICAID, SELFPAY ==
--- NOTE | 2024-09-16 11:19 | EKG_ITS ---
[facility] Test Date: 2024-09-16 Pat Name: HINA KELLY Department: Room: - Gender: Male Deputy K 9: : 1990 Requested By: Joey Richardson Order Number: [id number] Reading MD: Joey Richardson Measurements Intervals [place] Rate: 67 P: 13 WI: 133 QRS: 28 QRSD: 101 T: 44 QT: 366 QTc: 387 Interpretive Statements SINUS RHYTHM WITH SINUS ARRHYTHMIA Compared to ECG 08/06/2024 10:50:51 Ventricular premature complex(es) no longer present /store/S0/[id number]/ecg/[id number].pdf
--- NOTE | 2024-09-16 11:19 | XR_ITS ---
Examination: CT brain head without contrast. 2-D sagittal coronal reconstructions Date and time of exam:September 16, 2024 1211 hours INDICATIONS: Seizures today, patient fell with injury to the head, head pain CTDI: vol (mGy):51.4 DLP: (mGycm):1031 Technique: Multiple CT axial sections of the brain have been obtained, 5 mm slice thickness. Contrast has not been administered. 2-D sagittal, coronal reconstructions have been obtained Low dose protocols were performed. One or more of the following dose reduction techniques were used; automated exposure control, adjustment of the mA and/or KV according to patient size, use of iterative reconstruction technique. Findings: No significant ventricular enlargement. Intra-axial or extra-axial hemorrhage density is not seen. No mass effect or midline shift Basal cisterns are not remarkable. Fourth ventricle is midline. Cranial vault intact. Age indeterminate left nasal bone fracture, axial image 37 Impression: Negative for acute hemorrhage, mass effect or midline shift Consider elective brain MRI follow-up, pre and postcontrast, seizure protocol
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
[2024-09-16 11:54] VITALS: BP 115/75; PULSE 76; RESP 16; TEMP 36.9; O2SAT 100; BMI 28.0
[2024-09-16 12:10] LABS: Basophils % (Auto) 0 % (0-2.5); Eosinophils # (Auto) 0.1 Thou/mm3 (0.0-0.5); Eosinophils % (Auto) 3 % (0-10); Hematocrit 44.8 % (41.0-53.0); Hemoglobin 15.5 g/dL (13.5-16.0); Immature Granulocytes % (Auto) 0 % (0-0); Immature Granulocytes Auto 0.01 Thou/mm3 (0.00-0.00); Lymphocytes # (Auto) 1.5 Thou/mm3 (1.0-4.8); Lymphocytes % (Auto) 31 % (10-50); Mean Corpuscular HGB Conc 34.6 g/dl (31.0-37.0); Mean Corpuscular Hemoglobin 30.3 pg (25.0-35.0); Mean Corpuscular Volume 88 fL (80-100); Monocytes # (Auto) 0.5 Thou/mm3 (0.0-0.8); Monocytes % (Auto) 11 % (0-12); Neutrophils # (Auto) 2.7 Thou/mm3 (1.8-7.7); Neutrophils % (Auto) 55 % (37-80); Nucleated Red Blood Cell % 0 /100 WBC (0); Platelet Count 153 Thou/mm3 (140-440); RDW Standard Deviation 39.9 fL (35.1-43.9); Red Blood Count 5.11 Miln/mm3 (4.50-5.90); White Blood Count 4.9 Thou/mm3 (3.8-10.6)
[2024-09-16 12:35] LABS: Alanine Aminotransferase 33 U/L (10-49); Albumin, Serum 5.1 gm/dL (3.5-5.0); Albumin/Globulin Ratio 2.2 (1.2-2.2); Alkaline Phosphatase 76 U/L (46-116); Anion Gap 7 (7-16); Aspartate Amino Transferase 24 U/L (0-34); BUN/Creatinine Ratio 10 Ratio (12-20); Bilirubin,Total 0.4 mg/dL (0.3-1.2); Blood Urea Nitrogen 11 mg/dL (9-23); Calcium 9.6 mg/dL (8.3-10.6); Calcium (Corrected) 9.6 mg/dL (8.5-10.1); Carbon Dioxide 26.7 mMol/L (20.0-31.0); Chloride 105 mMol/L (98-107); Creatinine (Component) 1.1 mg/dL (0.6-1.3); Estimated Creatinine Clearance 105.8 mL/min (>60); Globulin 2.3 gm/dL (2.3-3.5); Glucose 84 mg/dL (74-106); Osmolality,Calculated 275 (275-295); Potassium 4.4 mMol/L (3.4-5.1); Sodium 139 mMol/L (136-145); Total Protein 7.4 gm/dL (5.7-8.2); Troponin I < 0.002 ng/mL (0.0-0.045); eGFR > 60 See Note
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
[2024-09-16 15:19] VITALS: PULSE 78; RESP 18; TEMP 36.8; O2SAT 100
== END 2024-09-16 15:21 | disposition home or self-care (01) ==
PROVIDERS: Nurse Practitioner Family; Emergency Provider Emergency Medicine; PCP Family Medicine
DX: R56.9 Unspecified convulsions (principal); I49.8 Other specified cardiac arrhythmias
CPT/HCPCS: 36415; 70450; 80053; 84484; 85025; 85610; 85730; 93005; 99284

== ENCOUNTER 2024-10-09 09:51 | Inpatient (IN) | payer MEDICAID, SELFPAY ==
[2024-10-09] VITALS (10 sets, daily range): BP systolic 118–151; BP diastolic 77–98; PULSE 57–83; RESP 13–99; TEMP 36.2–37.2; O2SAT 98–100; BMI 29.5
--- NOTE | 2024-10-09 | XR_ITS ---
Examination: MRI of brain without intravenous contrast. MRI brain with intravenous contrast. Date and time of exam:October 09, 2024 1255 hours INDICATIONS: Seizures today Technique: Multiple axial and sagittal images of the brain to been obtained. Siemens high-resolution 1.52 Victorina short bore scanner utilized. Sagittal sections, T1 weighted images, TR 500, TE 14, are performed. Axial sections proton-density and T2-weighted images have been obtained. Inversion recovery axial images, TR 9260, TE 111, TR 2500. Diffusion weighted images, axial sections, TR 4800, TE 128, B value 1000. Axial sections, ADC map, TR 4800, TE 128. Axial and coronal images were also obtained post 18 cc gadolinium administered intravenously. Findings:: Enlargement of the sella turcica is not present. The optic chiasm and infundibular stalk are not remarkable. There is no localized enlargement of the medulla or addi. Fourth ventricle and cerebellar tonsils appear normal in position. No subacute area of hemorrhage density is seen. Fourth ventricle is midline. Mass in the cerebellopontine angle region is not evident. 7th and 8th nerve complexes exhibit symmetry Globes are symmetrical Orbital musculature including medial lateral rectus muscles do not exhibit abnormality Increased white matter signal is not seen Effacement of the cortical sulcal markings is not identified. Mass effect upon the ventricular system is not identified. Diffusion-weighted images demonstrate no focus of restricted diffusion Contrast images demonstrate no abnormal enhancement Impression: Negative for acute hemorrhage mass effect or midline shift No acute infarct No MR findings diagnostic for demyelinating disease No abnormal enhancing cerebellar or cerebral lesions
--- NOTE | 2024-10-09 11:05 | PD.EDSEIZ ---
ED Seizures RME/HPI General Chief Complaint: Seizure Stated Complaint: Seizure medication is not working Time Seen by Provider: 10/09/24 10:03 Arrival date/time: 10/09/24 09:51 Related Data Previous Rx's ?Medication ?Instructions ?Recorded chlordiazepoxide HCl 25 mg capsule 25 mg PO QDAY #3 caps 08/08/24 levetiracetam 750 mg tablet 750 mg PO BID #60 tabs 09/16/24 (Keppra) Allergies Allergy/AdvReac Type Severity Reaction Status Date / Time sulfamethoxazole Allergy Intermediate VOMIT Verified 08/06/24 10:10 trimethoprim Allergy Intermediate VOMIT Verified 08/06/24 10:10 Course Vital Signs Vital signs: Vital Signs Temperature 99.0 F 10/09/24 10:02 Pulse Rate 83 10/09/24 10:02 Respiratory Rate 18 10/09/24 10:02 Blood Pressure 151/89 H 10/09/24 10:02 Pulse Oximetry (%) 98 10/09/24 10:02 Oxygen Delivery Method Room Air 10/09/24 10:02 Discharge Plan Prescriptions/Referrals Prescriptions/Med Rec: No Action chlordiazepoxide HCl 25 mg capsule 25 mg PO QDAY Qty: 3 0RF levetiracetam [Keppra] 750 mg tablet 750 mg PO BID Qty: 60 0RF Referrals: Stephan Perkins MD [Primary Care Provider] - In 1 week Patient/Caregiver Discharge Instructions Print Language: Chadian
--- NOTE | 2024-10-09 11:16 | EKG_ITS ---
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
--- NOTE | 2024-10-09 11:16 | XR_ITS ---
Examination: AP chest single view Technique one AP portable upright chest single view Exam date and time: October 09, 2024 1202 hours Comparison November 01, 2023 INDICATIONS: Shortness of breath today FINDINGS: Normal heart size. No pneumonia or pulmonary edema. Prominent osteopenia. Orthopedic hardware upper dorsal spine IMPRESSION: No active disease
--- NOTE | 2024-10-09 12:07 | PD.EDSEIZ ---
ED Seizures RME/HPI General Chief Complaint: Seizure Stated Complaint: Seizure medication is not working Time Seen by Provider: 10/09/24 10:03 Arrival date/time: 10/09/24 09:51 RME / HPI RME / HPI Narrative: This section includes all my notes and documentations, including HPI, PE, and ED course.? Dread Mclean MD HPI: 33 year old male here to be evaluated with frequent and regular seizures. I saw him here about two weeks ago, on . At the time, I added Keppra 750 mg BID to his Carbamazepine 200 mg qD. But he didn't pick them up. He had 5 seizures yesterday and one today. No other complaints. ROS: All negative except as documented in HPI. Physical Exam: General:? Alert and oriented.? Eyes:? Conjunctivae and lids clear.? PERRL. EOMI. ENT:? No nasal congestion.? Neck:? Supple.? Heart:? RRR.? Lungs:? No respiratory distress.? Good air movement.? No rhonchi, wheezing, rales.?? Legs:? No clubbing, cyanosis, edema.? Skin:? Warm and dry.?? Neuro:? Alert and oriented X 3.??CN 2-12 grossly normal. No peripheral motor deficits. I reviewed all diagnostic test results. My interpretation of the EKG is?NSR (58 bpm) with no ST-T changes. My interpretation of the chest x-ray is no active disease. My review of the brain MRI report is?negative for acute hemorrhage mass effect or midline shift, no acute infarct. Blood tests and urine tests?unremarkable. At this point, diagnoses include?recurrent seizures. I discussed the case with our neurologist and our hospitalist.? About the presentation and exam and diagnostics and treatments here.? And need of further care in the hospital.? Will accept the patient. I spoke with pharmacy staff at [facility] pharmacy on [address] Report the patient did not fill the Keppra 750mg BID that was prescribed on 09/16/2024. Report the patient picked up his prescribed Carbamazepine instead. Dread Mclean MD Related Data Previous Rx's ?Medication ?Instructions ?Recorded chlordiazepoxide HCl 25 mg capsule 25 mg PO QDAY #3 caps 08/08/24 levetiracetam 750 mg tablet 750 mg PO BID #60 tabs 09/16/24 (Keppra) levetiracetam 500 mg tablet 500 mg PO BID #30 tabs 10/10/24 (Keppra) Allergies Allergy/AdvReac Type Severity Reaction Status Date / Time sulfamethoxazole Allergy Intermediate VOMIT Verified 08/06/24 10:10 trimethoprim Allergy Intermediate VOMIT Verified 08/06/24 10:10 Review of Systems Review of Systems Systems Reviewed: All systems reviewed, normal except as documented Past Medical History Past Medical History NEUROLOGIC: Positive Seizures OTHER HISTORY: Positive Falls Family History FAMILY HISTORY: Positive Family Respiratory Disorders, Family Cancer (PT'S GREATGRANDMOTHER BREAST CANCER) and Family Surgery Surgical History SURGICAL: Positive of Back Surgery Social History SMOKING STATUS: Former smoker SECOND HAND EXPOSURE: No ED Exam Narrative Physical exam: As noted in HPI Course Quality Measures none Orders Category Date Time Status COVID-19 Screening Questionnaire NOW Care 10/09/24 15:46 Completed Decision to Admit X1 Care 10/09/24 15:46 Completed EKG (ED ONLY) *Do not use* NOW Care 10/09/24 11:16 Completed MRI Screening NOW Care 10/09/24 11:15 Completed MRI Screening NOW Care 10/09/24 11:47 Completed Saline [Insert IV] NOW Care 10/09/24 11:10 Completed EKG (ED Only) Stat Exams 10/09/24 11:16 Draft MR head/brain wo/w con Stat Exams 10/09/24 Completed XR chest 1V portable Stat Exams 10/09/24 11:16 Completed Alcohol, Blood Medical Stat Lab 10/09/24 11:53 Completed CBC Stat Lab 10/09/24 11:53 Completed CMP [Comprehensive Metabolic Panel] Stat Lab 10/09/24 11:53 Completed CRP [C-Reactive Protein] Stat Lab 10/09/24 11:53 Completed Drug Screen,Urine Stat Lab 10/09/24 12:34 Completed ESR [Sed Rate (ESR)] Stat Lab 10/09/24 11:53 Completed Levetiracetam (Keppra)* Stat Lab 10/09/24 11:53 Completed Magnesium Stat Lab 10/09/24 11:53 Completed Procalcitonin Stat Lab 10/09/24 11:53 Completed TSH [Thyroid Stimulating Hormone] Stat Lab 10/09/24 11:53 Completed Troponin I Stat Lab 10/09/24 11:53 Completed UA, C/S IF [Urinalysis, C/S if Indicated] Stat Lab 10/09/24 12:34 Completed VBG [Venous Blood Gas] Stat Lab 10/09/24 11:53 Completed Diazepam Inj [Valium Inj] Med 10/09/24 15:44 Discontinued 2.5 mg IVP X1 ONE Ketorolac Inj [Toradol Inj] Med 10/09/24 12:20 Discontinued 30 mg IVP X1 ONE Sodium Chloride 0.9% 1000 ml [Ns] 1,000 ml Med 10/09/24 11:10 Discontinued IV 999 mls/hr Vital Signs Vital signs: Vital Signs Temperature 99.0 F 10/09/24 10:02 Pulse Rate 83 10/09/24 10:02 Respiratory Rate 18 10/09/24 10:02 Blood Pressure 151/89 H 10/09/24 10:02 Pulse Oximetry (%) 98 10/09/24 10:02 Oxygen Delivery Method Room Air 10/09/24 10:02 Pulse ox is 98% on room air which is adequate. Seizure MDM Narrative MDM Narrative:: IRosalee am scribing for and in the presence of Dr. Mclean. Patient data External records reviewed:: [facility] previous records (I reviewed ED visit on 09/16/2024) Clinical information provided by:: patient Social determinants that could affect healthcare access:: none Patient has the following chronic illnesses:: Seizures How is presenting disease/condition affected by chronic disease/condition?: exacerbated by Evaluation data The following diagnostics were reviewed and interpreted by me:: lab results, radiology exam(s) and EKG tracing(s) (My interpretation of the EKG: NSR (58 bpm) with no ST-T changes. Dread Mclean MD) Lab and/or radiology exams considered but not ordered:: None Interpretation Summary: My interpretation of the chest x-ray is no active disease. My review of the brain MRI report is?negative for acute hemorrhage mass effect or midline shift, no acute infarct. Medications / Prescriptions Medications or Prescriptions considered but not ordered:: None Medication administrations:: Medication Administration History Discontinued Medications Acetaminophen (Acetaminophen 325 Mg Tablet) 650 mg PO Q6H PRN PRN Reason: pain and Fever >100.4 Stop: 11/08/24 16:31 Acetaminophen (Acetaminophen 325 Mg Tablet) 650 mg PO Q6H PRN PRN Reason: pain 1-3 and Fever >100.4 Stop: 11/08/24 16:31 Hydrocodone Bitart/Acetaminophen (Hydrocodone/Apap 5/325 Tablet) 1 tab PO Q4HR PRN PRN Reason: PAIN SCALE 4-10(Mod-Sev Stop: 10/14/24 16:31 Last Admin: 10/10/24 08:39 Dose: 1 tab Documented By: MIKIE Diazepam (Diazepam Inj 5 Mg/Ml Vial 2 Ml) 2.5 mg IVP X1 ONE Stop: 10/09/24 15:45 Last Admin: 10/09/24 16:32 Dose: 2.5 mg Documented By: JUSTIN Sodium Chloride (Ns) 1,000 mls @ 999 mls/hr IV .Q1H1M ONE Stop: 10/09/24 12:10 Last Infusion: 10/09/24 15:00 Dose: Infused Documented By: Admin: 10/09/24 13:46 Dose: 999 mls/hr Documented By: NICKI Ketorolac Tromethamine (Ketorolac Inj 30 Mg/Ml Vial) 30 mg IVP X1 ONE Stop: 10/09/24 12:21 Last Admin: 10/09/24 13:46 Dose: 30 mg Documented By: NICKI Lorazepam (Lorazepam 2 Mg/Ml Vial) 2 mg IVP Q2HR PRN PRN Reason: seizure Stop: 10/15/24 00:00 Ondansetron HCl (Ondansetron Inj 2 Mg/Ml Inj 2 Ml) 4 mg IV Q6H PRN; Protocol PRN Reason: NAUSEA OR VOMITING Stop: 11/08/24 16:31 Pantoprazole Sodium (Pantoprazole 40 Mg Tablet) 40 mg PO QDAY OBDULIO Stop: 11/09/24 08:59 Last Admin: 10/10/24 08:40 Dose: 40 mg Documented By: AV Patient given IV fluids and toradol Consultations Consultation(s) initiated? (list below): Yes Consultation #1 (Physician, Specialty, Details): I spoke with our neurologist, recommended admission for further care. Diagnosis Seizure Differential Diagnosis: intractable seizure disorder, focal seizure, generalized seizure, epileptic seizure and status epilepticus Most likely diagnosis given after review of the tests above:: Recurrent seizures Admission Indicated Admission indicated?: indicated Explain why admission is indicated or not indicated:: Our neurologist recommended admission. Admission Request Was there a request for admission?: Yes Admission Attestation Admission request attestation: Discussed case with Hospitalist service regarding admission. Discussed patients ED course, exam findings, labs, and radiology results. The Hospitalist [agrees] to accept the patient for admission. Disposition Plan Disposition Plan: Admit Discharge Plan Plan Patient Disposition: Admit Acute Care w/in Hospital Patient condition on transfer: Stable Problem List Clinical Impression: Recurrent seizures Patient/Caregiver Discharge Instructions Discharge Activity: resume usual activities Other Activity Instructions:: - Follow up with PCP within 1 week - Follow up with Neurology within 1 week discharge - Continue Keppra 500mg twice a day - Strictly avoid driving until cleared by Neurology - Family will need to record episodes at home for reference and re-evaluation - Return to ED if symptoms worsen
[2024-10-09 12:14] LABS: Base Excess, Venous 0 (-3-3); O2 Saturation, Venous 71 % (96-97); PCO2, Venous 44 mmHg (36-56); PO2, Venous 37 mmHg (15-58); pH, Venous 7.37 (7.33-7.66)
[2024-10-09 12:25] LABS: Basophils % (Auto) 0 % (0-2.5); Eosinophils # (Auto) 0.1 Thou/mm3 (0.0-0.5); Eosinophils % (Auto) 2 % (0-10); Hematocrit 43.9 % (41.0-53.0); Hemoglobin 15.4 g/dL (13.5-16.0); Immature Granulocytes % (Auto) 0 % (0-0); Lymphocytes # (Auto) 1.3 Thou/mm3 (1.0-4.8); Lymphocytes % (Auto) 26 % (10-50); Mean Corpuscular HGB Conc 35.1 g/dl (31.0-37.0); Mean Corpuscular Hemoglobin 30.3 pg (25.0-35.0); Mean Corpuscular Volume 86 fL (80-100); Monocytes # (Auto) 0.4 Thou/mm3 (0.0-0.8); Monocytes % (Auto) 9 % (0-12); Neutrophils # (Auto) 3.1 Thou/mm3 (1.8-7.7); Neutrophils % (Auto) 63 % (37-80); Nucleated Red Blood Cell % 0 /100 WBC (0); Platelet Count 165 Thou/mm3 (140-440); RDW Standard Deviation 39.7 fL (35.1-43.9); Red Blood Count 5.09 Miln/mm3 (4.50-5.90); White Blood Count 4.9 Thou/mm3 (3.8-10.6)
[2024-10-09 12:38] LABS: Sed Rate (ESR) 1 mm/hr (0-15)
[2024-10-09 12:43] LABS: Alanine Aminotransferase 45 U/L (10-49); Albumin, Serum 4.7 gm/dL (3.5-5.0); Albumin/Globulin Ratio 2.1 (1.2-2.2); Alcohol, Blood Medical < 3.0 mg/dL (0-10.0); Alkaline Phosphatase 88 U/L (46-116); Anion Gap 7 (7-16); Aspartate Amino Transferase 31 U/L (0-34); BUN/Creatinine Ratio 7 Ratio (12-20); Bilirubin,Total 0.8 mg/dL (0.3-1.2); Blood Urea Nitrogen 7 mg/dL (9-23); Calcium 9.4 mg/dL (8.3-10.6); Calcium (Corrected) 9.4 mg/dL (8.5-10.1); Carbon Dioxide 26.5 mMol/L (20.0-31.0); Chloride 108 mMol/L (98-107); Estimated Creatinine Clearance 119.2 mL/min (>60); Globulin 2.2 gm/dL (2.3-3.5); Glucose 99 mg/dL (74-106); Osmolality,Calculated 279 (275-295); Potassium 4.2 mMol/L (3.4-5.1); Sodium 141 mMol/L (136-145); Thyroid Stimulating Hormone 1.78 uIU/mL (0.55-4.78); Total Protein 6.9 gm/dL (5.7-8.2); Troponin I < 0.002 ng/mL (0.0-0.045); eGFR > 60 See Note
[2024-10-09 12:46] LABS: Collection Type, Urine Clean Catch
[2024-10-09 12:51] LABS: Bilirubin,Urine Negative (Negative); Blood,Urine Negative (Negative); Clarity,Urine Clear (Clear/Hazy); Color,Urine Yellow (Lt Yel-Yel); Culture Indicated,Urine Not Indicated; Glucose, Urine Negative (Negative); Ketones,Urine Negative (Negative); Leukocyte Esterase,Urine Negative (Negative); Nitrite,Urine Negative (Negative); Protein,Urine 1+ (Neg - Trace); RBC,Urine 1 /hpf (0-3); Specific Gravity,Urine 1.034 (1.001-1.035); Squamous Epithelial Cell,Urine < 1 /hpf (0-5); Urobilinogen,Urine Negative mg/dL (0.0-1.0); WBC,Urine 2 /hpf (0-5)
[2024-10-09 13:41] LABS: Amphetamine/Methamp Scrn,U Negative (Negative); Barbiturate Screen,Urine Negative (Negative); Benzodiazepines Screen,Urine Negative (Negative); Benzoylecgonine Screen, Ur Negative (Negative); Fentanyl Screen,Urine Negative (Negative); Opiate Screen,Urine Negative (Negative); THC Screen,Urine Positive (Negative)
[2024-10-09] MEDS: SODIUM CHLORIDE 0.9% 1000 ML 1,000 ML 999 ML IV (13:46)
[2024-10-09] MEDS: KETOROLAC INJ 30 MG/ML VIAL IVP (13:46)
[2024-10-09 14:19] LABS: C-Reactive Protein < 0.4 mg/dL (0.0-0.9); Procalcitonin 0.06 ng/ml (0.0-0.49)
[2024-10-09] MEDS: DIAZEPAM INJ 5 MG/ML VIAL 2 ML 2.5 MG IVP (16:32)
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
--- NOTE | 2024-10-09 23:51 | PD.VCONSULT1 ---
Telemedicine visit statement This visit was conducted with the use of interactive audio and video telecommunications system that permits real time communication between the patient and the provider. Patient's verbal consent for virtual visit was obtained on 10/09/24 at 2351. Meds Home Medications and Allergies Allergies Allergy/AdvReac Type Severity Reaction Status Date / Time sulfamethoxazole Allergy Intermediate VOMIT Verified 08/06/24 10:10 trimethoprim Allergy Intermediate VOMIT Verified 08/06/24 10:10 Virtual exam Vital Signs Temp Pulse Resp BP Pulse Ox O2 Del Method 97.1 F 58 L 13 118/80 99 Room Air 10/09/24 22:01 10/09/24 22:01 10/09/24 22:01 10/09/24 22:01 10/09/24 22:01 10/09/24 22:01 Results Labs 10/09/24 11:53 10/09/24 11:53 Labs: Short CBC 10/09/24 Range/Units 11:53 WBC 4.9 (3.8-10.6) Thou/mm3 Hgb 15.4 (13.5-16.0) g/dL Hct 43.9 (41.0-53.0) % Plt Count 165 (140-440) Thou/mm3 BMP 10/09/24 11:53 Sodium 141 Potassium 4.2 Chloride 108 H Carbon Dioxide 26.5 BUN 7 L Creatinine 1.0 Glucose 99 Calcium 9.4 Cardiac Enzymes 10/09/24 Range/Units 11:53 Troponin I < 0.002 (0.0-0.045) ng/mL Liver Function 10/09/24 Range/Units 11:53 Total Bilirubin 0.8 (0.3-1.2) mg/dL AST 31 (0-34) U/L ALT 45 (10-49) U/L Alkaline Phosphatase 88 (46-116) U/L Albumin 4.7 (3.5-5.0) gm/dL Urine 10/09/24 Range/Units 12:34 Urine Color Yellow (Lt Yel-Yel) Urine Clarity Clear (Clear/Hazy) Urine pH 6.0 (5.0-7.0) Ur Specific [place] 1.034 (1.001-1.035) Urine Protein 1+ A (Neg - Trace) Urine Glucose (UA) Negative (Negative) ABG Interpretation ABG results: 10/09/24 11:53 VBG pH 7.37 VBG pCO2 44 VBG pO2 37 VBG Base Excess 0
[2024-10-10] VITALS (7 sets, daily range): BP systolic 97–125; BP diastolic 65–84; PULSE 52–80; RESP 11–99; TEMP 35.6–36.4; O2SAT 97–99; BMI 30.4
--- NOTE | 2024-10-10 04:51 | RESP.EEG ---
EEG COMPLETE AND READY TO READ
[2024-10-10 06:21] LABS: Basophils % (Auto) 1 % (0-2.5); Eosinophils # (Auto) 0.1 Thou/mm3 (0.0-0.5); Eosinophils % (Auto) 2 % (0-10); Hematocrit 39.1 % (41.0-53.0); Hemoglobin 13.9 g/dL (13.5-16.0); Immature Granulocytes % (Auto) 0 % (0-0); Lymphocytes # (Auto) 1.6 Thou/mm3 (1.0-4.8); Lymphocytes % (Auto) 35 % (10-50); Mean Corpuscular HGB Conc 35.5 g/dl (31.0-37.0); Mean Corpuscular Hemoglobin 30.2 pg (25.0-35.0); Mean Corpuscular Volume 85 fL (80-100); Monocytes # (Auto) 0.5 Thou/mm3 (0.0-0.8); Monocytes % (Auto) 11 % (0-12); Neutrophils # (Auto) 2.3 Thou/mm3 (1.8-7.7); Neutrophils % (Auto) 51 % (37-80); Nucleated Red Blood Cell % 0 /100 WBC (0); Platelet Count 126 Thou/mm3 (140-440); RDW Standard Deviation 38.8 fL (35.1-43.9); White Blood Count 4.4 Thou/mm3 (3.8-10.6)
[2024-10-10 06:48] LABS: Alanine Aminotransferase 37 U/L (10-49); Albumin, Serum 3.9 gm/dL (3.5-5.0); Albumin/Globulin Ratio 1.8 (1.2-2.2); Alkaline Phosphatase 76 U/L (46-116); Anion Gap 8 (7-16); Aspartate Amino Transferase 22 U/L (0-34); BUN/Creatinine Ratio 6 Ratio (12-20); Bilirubin,Total 0.6 mg/dL (0.3-1.2); Blood Urea Nitrogen 7 mg/dL (9-23); Calcium 9.2 mg/dL (8.3-10.6); Calcium (Corrected) 9.3 mg/dL (8.5-10.1); Carbon Dioxide 26.1 mMol/L (20.0-31.0); Cardiac Risk Estimate 3.7 RATIO (4.0-6.7); Chloride 108 mMol/L (98-107); Cholesterol 130 mg/dL (132-200); Creatine Kinase 104 U/L (34-171); Creatinine (Component) 1.1 mg/dL (0.6-1.3); Estimated Creatinine Clearance 109.7 mL/min (>60); Globulin 2.2 gm/dL (2.3-3.5); Glucose 92 mg/dL (74-106); HDL Cholesterol 35 mg/dL (40-60); LDL Cholesterol,Calculated 68 mg/dL (0-130); Magnesium 1.9 mg/dL (1.6-2.6); Osmolality,Calculated 281 (275-295); Potassium 3.6 mMol/L (3.4-5.1); Sodium 142 mMol/L (136-145); Total Protein 6.1 gm/dL (5.7-8.2); Triglycerides 135 mg/dL (30-150); eGFR > 60 See Note
[2024-10-10] MEDS: HYDROcodone/APAP 5/325 TABLET 1 TAB PO (08:39)
[2024-10-10] MEDS: PANTOPRAZOLE 40 MG TABLET PO (08:40)
--- NOTE | 2024-10-10 13:44 | ESDS_ITS ---
<Statement entered by Sadie Samuel MD - 10/16/24 15:56> I reviewed above note and agree with findings and plans. I have also personally examined the patient with medicine team and went over assessment and plan with medical team including music industry internship and resident physician. Planned Discharge Date 10/10/24 DS: Providers Provider Date of admission: 10/09/24 16:32 Primary care physician: Stephan Perkins MD Admitting Provider: Sadie Samuel MD Attending Provider on Admission: Sadie Samuel MD Consults: 10/09/24 16:35 Consult to Neurology / Tele-Neurology Routine Comment: Consulting Provider: Javier Washington Attending Provider on DC: Ivonne Rand MD Discharging Provider: Ivonne Rand MD DS: Diagnosis Problem List Completed Was Problem List Reviewed/Reconciled?: Yes Hospital Course Hospital Course Hospital course: The patient is a 33-year-old male with a past medical history of seizure disorder on carbamazepine who presented to the ED on 09/09/2024 with recurrent witnessed seizures at home. Per patient's, he has not taken his medications for about 3 years without missing a dose and has not had any incidents for more than 2 years but about 2 weeks ago he started having breakthrough seizures including yesterday prior to presentation. He describes his seizures as not generalized tonic phase but no postictal paralysis and no incontinence. Patient does not see a neurologist and has not seen one in the past 3 years, has antiseizure medication filled by his PCP. In the ED, patient was hemodynamically stable and neurology was consulted. Brain MRI was done which was negative for mass effect, lesions or demyelinating disease. The patient was admitted for further workup. EEG was done which returned normal and patient was seizure-free while on admission. The patient was cleared for discharge by neurology with the following recommendations: -To continue seizure medication Keppra 500 mg twice daily -Take precautions: Avoid driving until cleared by neurology, for family's records any seizure like episodes at home for reference and reevaluation. The patient was recommended to follow-up with his primary care physician within 1 week as well as neurologist with a creatinine within 2weeks of discharge. #Recurrent seizures #History of alcohol abuse disorder #History of alcohol withdrawal without seizures Case was discussed with attending physician, Dr Jimmie Rand MD PGY-1 Status at Discharge Functional status at discharge: independent ambulation Overall status at discharge: patient is back to baseline Time Spent with Patient Time attestation: Total time spent providing and/or coordinating discharge services: Time spent: Greater than 30 minutes Exam Vital Signs Temp Pulse Resp BP Pulse Ox O2 Del Method 97.4 F 52 L 17 109/70 99 Room Air 10/10/24 12:00 10/10/24 12:10/10/24 12:10/10/24 12:00 10/10/24 12:10/10/24 12:00 Narrative Exam GENERAL: AAOX3 NEURO: 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 Eyes open, symmetrical, & clear CARDIO: No chest pain on palpation. Heart RRR, no obvious murmurs PULM: No noted coughing/dyspnea. Lungs CTA B/L GI: Abdomen soft, nondistended, no pain on palpation. BSx4 URO/NETWORK SPECIALIST:: No further abnormalities noted. SKIN/MSK/EXT: No wounds/rashes/edema/amputations, no pain on palpation. Pedal pulses present B/L Discharge Plan Plan Patient Disposition: HOME (Self Care) Patient condition on transfer: Stable Prescriptions/Referrals Prescriptions/Med Rec: New levetiracetam [Keppra] 500 mg tablet 500 mg PO BID Qty: 30 0RF No Action chlordiazepoxide HCl 25 mg capsule 25 mg PO QDAY Qty: 3 0RF levetiracetam [Keppra] 750 mg tablet 750 mg PO BID Qty: 60 0RF Referrals: Stephan Perkins MD [Primary Care Provider] - Patient/Caregiver Discharge Instructions Discharge Activity: resume usual activities Other Discharge Activity Instructions:: - Follow up with PCP within 1 week - Follow up with Neurology within 1 week discharge - Continue Keppra 500mg twice a day - Strictly avoid driving until cleared by Neurology - Family will need to record episodes at home for reference and re-evaluation - Return to ED if symptoms worsen Education Materials: Epilepsy: Safety During a Seizure Print Language: Irish Stand Alone Forms: Tara Award Info., Patient Portal Info Letter Discharge Order Discharge Orders: Discharge (Routine); Ordered 10/10/24 Ordered By: Oscar Jolly Quality Discharge Quality Measures VTE prophylaxis
--- NOTE | 2024-10-10 14:59 | PC.NURSE ---
Patient given discharge instructions. IV Removed. MD Louise huang with discharge.
[2024-10-12 06:48] LABS: Levetiracetam (Keppra)* <2.0 mcg/mL (6.0-46.0)
== END 2024-10-10 16:15 | disposition home or self-care (01) | DRG 53 ==
LOC: SERX 15:47 → SERHOLD 17:39 → S2NX 22:27
PROVIDERS: Admitting Provider Internal Medicine; Emergency Provider Emergency Medicine; PCP Family Medicine; Visit Provider Internal Medicine
DX: G40.909 Epilepsy, unspecified, not intractable, without status epilepticus (principal); F10.10 Alcohol abuse, uncomplicated; R00.1 Bradycardia, unspecified; Y90.0 Blood alcohol level of less than 20 mg/100 ml; Z79.899 Other long term (current) drug therapy
CPT/HCPCS: 36415; 70553; 71045; 80053; 80061; 80177; 80307; 80320; 81001; 82550; 82803; 83735; 84145; 84443; 84484; 85025; 85652; 86140; 93005; 95816; 96361; 96374; 96375; 99285; A9579; J1885; J3360; J7030; A9270; G0480

== ENCOUNTER 2024-10-20 20:05 | Emergency (ER) | payer MEDICAID, SELFPAY ==
[2024-10-20 20:08] VITALS: PULSE 84; RESP 18; O2SAT 98
[2024-10-20 20:12] VITALS: BMI 29.5
[2024-10-20 20:14] VITALS: BP 141/92; PULSE 91; RESP 18; TEMP 36.6; O2SAT 98
--- NOTE | 2024-10-20 20:14 | EKG_ITS ---
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
--- NOTE | 2024-10-20 20:14 | PD.EDSEIZ ---
ED Seizures RME/HPI General Chief Complaint: Seizure Stated Complaint: SEIZURES Time Seen by Provider: 10/20/24 20:10 Arrival date/time: 10/20/24 20:05 RME / HPI RME / HPI Narrative: This section includes all my notes and documentations, including HPI, PE, and ED course. Dread Mclean MD HPI: 33yo male with a history of seizures BIBA from home presents to the ED for a seizure. Patient states he has been compliant with his Keppra regimen, 500 mg twice daily. He has stopped taking carbamezapine since his last ED visit. He denies any recent fever, chills or any other associated symptoms. Was recently admitted here for recurrent seizures, workup was negative including MRI and EEG. No other complaints reported. ROS: All negative except as documented in HPI. Physical Exam: General: Alert and oriented. No acute distress when remaining still. Eyes: Conjunctivae and lids clear. PERRL. EOMI. ENT: No nasal congestion. Neck: Supple. Heart: RRR. Lungs: No respiratory distress. Good air movement. No rhonchi, wheezing, rales. Abdomen: Soft and nontender. Legs: No clubbing, cyanosis, edema. Skin: Warm and dry. Neuro: Alert and oriented X 3. Cranial nerves II to XII grossly normal. No peripheral motor deficits. I reviewed all diagnostic test results. EKG showed normal sinus rhythm. Blood tests unremarkable. At this point, diagnoses include psychogenic seizures. Treatment here included Keppra 2 g IV and Toradol 30 mg IV. Remained stable. Recommended more outpatient workup. Based on my best medical judgment, made decision no further evaluation or treatment indicated at this time. Patient understands and agrees to the discharge instructions customized and printed, see below. Dread Mclaen MD --------- Discharge Instructions from Dr. Mclean printed for you: 1. To help prevent potential seizures, increase Keppra to 1000 mg twice daily. 2. To avoid severe injuries, avoid standing or walking alone or driving until cleared by a doctor taking care of you. 3. See a private doctor on 10/21/2024 for recheck and further care. Ask for help getting referrals to see specialists, including neurologist and psychiatrist. 4. Seek immediate medical care with worsening or with any concerns. Related Data Previous Rx's ?Medication ?Instructions ?Recorded chlordiazepoxide HCl 25 mg capsule 25 mg PO QDAY #3 caps 08/08/24 levetiracetam 750 mg tablet 750 mg PO BID #60 tabs 09/16/24 (Keppra) levetiracetam 500 mg tablet 500 mg PO BID #30 tabs 10/10/24 (Keppra) levetiracetam 1,000 mg tablet 1,000 mg PO BID #60 tabs 10/20/24 (Keppra) Allergies Allergy/AdvReac Type Severity Reaction Status Date / Time sulfamethoxazole Allergy Intermediate VOMIT Verified 08/06/24 10:10 trimethoprim Allergy Intermediate VOMIT Verified 08/06/24 10:10 Review of Systems Review of Systems Systems Reviewed: All systems reviewed, normal except as documented ED Exam Narrative Physical exam: As noted in HPI. Course Quality Measures none Orders Category Date Time Status EKG (ED ONLY) *Do not use* NOW Care 10/20/24 20:14 Completed IV [Insert IV] NOW Care 10/20/24 20:25 Active EKG (ED Only) Stat Exams 10/20/24 20:14 Draft CBC Stat Lab 10/20/24 20:20 Completed CMP [Comprehensive Metabolic Panel] Stat Lab 10/20/24 20:20 Completed Magnesium Stat Lab 10/20/24 20:20 Completed Troponin I Stat Lab 10/20/24 20:20 Completed Ketorolac Inj [Toradol Inj] Med 10/20/24 20:52 Discontinued 30 mg IVP X1 ONE levETIRAcetam INJ [Keppra Inj] Med 10/20/24 20:14 Discontinued 2,000 mg IVP X1 ONE Vital Signs Vital signs: Vital Signs Temperature 97.9 F 10/20/24 20:14 Pulse Rate 91 10/20/24 20:14 Respiratory Rate 18 10/20/24 20:14 Blood Pressure 141/92 H 10/20/24 20:14 Pulse Oximetry (%) 98 10/20/24 20:14 Seizure MDM Narrative MDM Narrative:: Scribe Attestation: 10/20/24 Cristine Tuttle am scribing for and in the presence of Dr. Mclean. Patient data External records reviewed:: [facility] previous records (Per chart review, patient was admitted here on 10/09/24 for recurrent seizures.) Clinical information provided by:: patient Social determinants that could affect healthcare access:: none Patient has the following chronic illnesses:: seizures How is presenting disease/condition affected by chronic disease/condition?: caused by Evaluation data The following diagnostics were reviewed and interpreted by me:: lab results and EKG tracing(s) (My interpretation of the EKG: NSR (92 bpm) with no ST-T changes. Dread Mclean MD) Lab and/or radiology exams considered but not ordered:: none Interpretation Summary: Normal diagnostics Medications / Prescriptions Medications or Prescriptions considered but not ordered:: none Medication administrations:: Medication Administration History Discontinued Medications Ketorolac Tromethamine (Ketorolac Inj 30 Mg/Ml Vial) 30 mg IVP X1 ONE Stop: 10/20/24 20:53 Last Admin: 10/20/24 21:11 Dose: 30 mg Documented By: CHESTER Levetiracetam (Levetiracetam Inj 100 Mg/Ml Vial 5ml) 2,000 mg IVP X1 ONE Stop: 10/20/24 20:15 Last Admin: 10/20/24 20:34 Dose: 2,000 mg Documented By: CHESTER Zavala Torezequiel Consultations Consultation(s) initiated? (list below): No Diagnosis Seizure Differential Diagnosis: intractable seizure disorder, focal seizure, generalized seizure, epileptic seizure, status epilepticus and other (Psychogenic seizures) Most likely diagnosis given after review of the tests above:: Recurrent seizures Admission Indicated Admission indicated?: not indicated Explain why admission is indicated or not indicated:: Admission criteria not met Admission Request Was there a request for admission?: No Disposition Plan Disposition Plan: Discharge Discharge Attestation Discharge Attestation: The patient and all family members were given an opportunity to ask questions and understood the discharge instructions. Discharge instructions specifically effects, indications for sooner follow up or return to the emergency department, and the expected course of current diagnosis. Patient condition: Stable Discharge Plan Plan Patient Disposition: HOME (Self Care) Prescriptions/Referrals Prescriptions/Med Rec: New levetiracetam [Keppra] 1,000 mg tablet 1,000 mg PO BID Qty: 60 0RF No Action chlordiazepoxide HCl 25 mg capsule 25 mg PO QDAY Qty: 3 0RF levetiracetam [Keppra] 750 mg tablet 750 mg PO BID Qty: 60 0RF levetiracetam [Keppra] 500 mg tablet 500 mg PO BID Qty: 30 0RF Referrals: Stephan Perkins MD [Primary Care Provider] - In 1 week Problem List Clinical Impression: Recurrent seizures Patient/Caregiver Discharge Instructions Discharge Activity: activity as tolerated Education Materials: ED Seizure, Recurrent (Adult) Additional Instructions: Discharge Instructions from Dr. Mclean printed for you: 1. To help prevent potential seizures, increase Keppra to 1000 mg twice daily. 2. To avoid severe injuries, avoid standing or walking alone or driving until cleared by a doctor taking care of you. 3. See a private doctor on 10/21/2024 for recheck and further care. Ask for help getting referrals to see specialists, including neurologist and psychiatrist. 4. Seek immediate medical care with worsening or with any concerns. Print Language: New Zealander Stand Alone Forms: Tara Award Info., Patient Portal Info Letter
[2024-10-20] MEDS: levETIRAcetam INJ 100 MG/ML VIAL 5ML 2000 MG IVP (20:34)
[2024-10-20 20:39] LABS: Basophils % (Auto) 1 % (0-2.5); Eosinophils # (Auto) 0.1 Thou/mm3 (0.0-0.5); Eosinophils % (Auto) 1 % (0-10); Hematocrit 39.7 % (41.0-53.0); Hemoglobin 14.4 g/dL (13.5-16.0); Immature Granulocytes % (Auto) 0 % (0-0); Immature Granulocytes Auto 0.01 Thou/mm3 (0.00-0.00); Lymphocytes # (Auto) 2.2 Thou/mm3 (1.0-4.8); Lymphocytes % (Auto) 43 % (10-50); Mean Corpuscular HGB Conc 36.3 g/dl (31.0-37.0); Mean Corpuscular Volume 83 fL (80-100); Monocytes # (Auto) 0.3 Thou/mm3 (0.0-0.8); Monocytes % (Auto) 7 % (0-12); Neutrophils # (Auto) 2.5 Thou/mm3 (1.8-7.7); Neutrophils % (Auto) 48 % (37-80); Nucleated Red Blood Cell % 0 /100 WBC (0); Platelet Count 144 Thou/mm3 (140-440); RDW Standard Deviation 38.9 fL (35.1-43.9); White Blood Count 5.1 Thou/mm3 (3.8-10.6)
[2024-10-20 21:00] LABS: Alanine Aminotransferase 66 U/L (10-49); Albumin, Serum 4.9 gm/dL (3.5-5.0); Alkaline Phosphatase 85 U/L (46-116); Anion Gap 12 (7-16); Aspartate Amino Transferase 46 U/L (0-34); BUN/Creatinine Ratio 5 Ratio (12-20); Bilirubin,Total 0.6 mg/dL (0.3-1.2); Blood Urea Nitrogen < 5 mg/dL (9-23); Calcium 9.4 mg/dL (8.3-10.6); Calcium (Corrected) 9.4 mg/dL (8.5-10.1); Carbon Dioxide 24.2 mMol/L (20.0-31.0); Chloride 110 mMol/L (98-107); Estimated Creatinine Clearance 119.2 mL/min (>60); Globulin 2.4 gm/dL (2.3-3.5); Glucose 97 mg/dL (74-106); Magnesium 2.1 mg/dL (1.6-2.6); Osmolality,Calculated 287 (275-295); Potassium 3.6 mMol/L (3.4-5.1); Sodium 146 mMol/L (136-145); Total Protein 7.3 gm/dL (5.7-8.2); Troponin I < 0.002 ng/mL (0.0-0.045); eGFR > 60 See Note
[2024-10-20] MEDS: KETOROLAC INJ 30 MG/ML VIAL IVP (21:11)
[2024-10-20 21:13] VITALS: BP 129/75; PULSE 101; RESP 19; O2SAT 99
[2024-10-20 22:39] VITALS: BP 111/67; PULSE 94; RESP 17; O2SAT 98
== END 2024-10-20 22:40 | disposition home or self-care (01) ==
PROVIDERS: Emergency Provider Emergency Medicine; PCP Family Medicine
DX: R56.9 Unspecified convulsions (principal)
CPT/HCPCS: 36415; 80053; 83735; 84484; 85025; 93005; 96374; 96375; 99284; J1885; J1953

== ENCOUNTER 2024-11-09 18:38 | Emergency (ER) | payer MEDICAID, SELFPAY ==
[2024-11-09 19:27] VITALS: BP 118/80; PULSE 66; RESP 18; TEMP 36.7; O2SAT 99; BMI 29.9
--- NOTE | 2024-11-09 19:43 | XR_ITS ---
Examination: Knee, right , 3 views Technique: Knee AP, lateral, oblique 3 views Date and time of exam: November 09, 2024 1948 hrs. Indications: Right knee pain today. Findings: No fracture or dislocation No foreign body No arthritic change Impression: No fracture or arthritic change
--- NOTE | 2024-11-09 19:52 | EDNOTE_ITS ---
ED General RME/HPI General Chief complaint: General Adult/Misc Complain Stated complaint: FEELS CLOSE TO A MENTAL BREAKDOWN; NEEDS MEDS Time Seen by Provider: 11/09/24 18:43 Arrival date/time: 11/09/24 18:38 33-year-old male with a history of alcohol dependency and chronic knee pain reports with complaints of worsening knee pain and feeling of having a mental breakdown. Patient states that he recently was discharged from mental health institution with a 7-day course of lorazepam but has run out and he does not see his psychiatrist for another month. Patient also reports knee instability for the last 4 to 5 days he denies suicidal homicidal ideations numbness tingling decreased range of motion or weakness of the right knee. Patient states that he has not taken any medicines for the pain in his knee or any other medications for his mental health Limitations: no limitations Related Data Previous Rx's ?Medication ?Instructions ?Recorded chlordiazepoxide HCl 25 mg capsule 25 mg PO QDAY #3 ca ps 08/08/24 levetiracetam 750 mg tablet 750 mg PO BID #60 tabs 05/03 (Keppra) levetiracetam 500 mg tablet 500 mg PO BID #30 tabs 10/03 (Keppra) levetiracetam 1,000 mg tablet 1,000 mg PO BID #60 tabs 10/20/24 (Keppra) lorazepam 0.5 mg tablet (Ativan) 0.5 mg PO QDAY PRN an xiety #7 tabs 11/09/24 Allergies Allergy/AdvReac Type Severity Reaction Status Date / Time sulfamethoxazole Allergy Intermediate VOMIT Verified 11/09/24 18:42 trimethoprim Allergy Intermediate VOMIT Verified 11/09/24 18:42 Review of Systems Constitutional Constitutional: Denies chills and Denies fever(s) Cardiovascular Cardiovascular: Denies chest pain and Denies dyspnea Respiratory Respiratory: Denies cough and Denies dyspnea Gastrointestinal Gastrointestinal: Denies nausea and Denies vomiting Musculoskeletal Musculoskeletal: Reports arthralgias, Denies joint swelling, Denies numbness and Denies tingling Integumentary/Breasts Skin/Breast: Denies unusual bruising and Denies wounds Neurologic Neurologic: Denies numbness and Denies tingling Psychiatric Psychiatric: Denies homicidal ideation, Denies suicidal ideation and Reports other (History of alcohol dependency) Hematologic/Lymphatic Hematologic/Lymphatic: Denies easy bleeding and Denies easy bruising ED Exam General Limitations: Present no limitations General appearance: Present alert and in no apparent distress Chest Chest inspection: Present normal inspection and symmetric chest wall rise Respiratory Respiratory exam: Present normal lung sounds bilaterally Cardiovascular Cardiovascular exam: Present regular rate, normal rhythm and normal heart sounds Abdominal Exam Abdominal exam: Present soft and normal bowel sounds Extremities Exam Extremities exam: Present normal inspection and full ROM Back Exam Back exam: Present normal inspection and full ROM Neurological Exam Neurological exam: Present alert, oriented X3 and CN II-XII intact Psychiatric Psychiatric exam: Present normal affect and normal mood Skin Skin exam: Present warm, dry, intact and normal color Course Course Course Narrative: 33-year-old male with history of alcohol dependency reports with complaints of feeling like he is getting have a mental breakdown though he denies suicidal and homicidal ideations patient is requesting a refill of lorazepam. Patient also complains of right knee pain. X-ray of the right knee shows no fractures or evidence of arthritic changes. Patient will be discharged with medications for the right knee and a small dose of lorazepam he is to follow-up with his psychiatrist as scheduled as he does not appear to be a harm to himself or others Quality Measures none Orders Category Date Time Status XR knee RT 3V Stat Exams 11/09/24 19:43 Completed Ketorolac Inj [Toradol Inj] Med 11/09/24 19:51 Discontinued 30 mg IM X1 ONE Vital Signs Vital signs: Vital Signs Temperature 98.1 F 11/09/24 19:27 Pulse Rate 66 11/09/24 19:27 Respiratory Rate 18 11/09/24 19:27 Blood Pressure 118/80 11/09/24 19:27 Pulse Oximetry (%) 99 11/09/24 19:27 Oxygen Delivery Method Room Air 11/09/24 19:27 [facility] Patient data External records reviewed:: None Clinical information provided by:: patient Social determinants that could affect healthcare access:: none Patient has the following chronic illnesses:: anxiety, knee pain How is presenting disease/condition affected by chronic disease/condition?: caused by Evaluation data The following diagnostics were reviewed and interpreted by me:: radiology exam(s) Lab and/or radiology exams considered but not ordered:: none Interpretation Summary: Negative for fractures dislocations no evidence of arthritis Medications Medications considered but not ordered:: none Medication administrations:: Medication Administration History Discontinued Medications Ketorolac Tromethamine (Ketorolac Inj 60 Mg/2 Ml Vial) 30 mg IM X1 ONE Stop: 11/09/24 19:52 as above Consultations Consultation(s) initiated? (list below): No Diagnosis Differential Diagnosis ED Complaint MDM: Right knee strain versus meniscus tear versus patellofemoral tendon syndrom Most likely diagnosis given after review of the tests above:: Right knee strain and anxiety Admission Indicated Admission indicated?: not indicated Explain why admission is indicated or not indicated:: Mild condition Admission Request Was there a request for admission?: No Disposition Plan Disposition Plan: Discharge Discharge Attestation Discharge Attestation: The patient and all family members were given an opportunity to ask questions and understood the discharge instructions. Discharge instructions specifically effects, indications for sooner follow up or return to the emergency department, and the expected course of current diagnosis. Patient condition: Stable Medical Decision Making Differential Diagnosis Differential Diagnosis: Right knee strain versus meniscus tear versus pa tellofemoral tendon syndrom Discharge Plan Plan Patient Disposition: HOME (Self Care) Prescriptions/Referrals Prescriptions/Med Rec: New lorazepam [Ativan] 0.5 mg tablet 0.5 mg PO QDAY PRN (Reason: anxiety) Qty: 7 0RF No Action chlordiazepoxide HCl 25 mg capsule 25 mg PO QDAY Qty: 3 0RF levetiracetam [Keppra] 750 mg tablet 750 mg PO BID Qty: 60 0RF levetiracetam [Keppra] 500 mg tablet 500 mg PO BID Qty: 30 0RF levetiracetam [Keppra] 1,000 mg tablet 1,000 mg PO BID Qty: 60 0RF Referrals: Stephan Perkins MD [Primary Care Provider] - In 1 week Problem List Clinical Impression: Knee pain, Anxiety Patient/Caregiver Discharge Instructions Discharge Activity: activity as tolerated Education Materials: Anxiety Disorders Tx Therapy, ED RICE Additional Instructions: Follow-up with your psychiatrist as planned and follow with your primary care provider for your knee pain as your x-ray does not show any dislocations or fractures Print Language: [place] Stand Alone Forms: [employer] Award Info., Patient Portal Info Letter
[2024-11-09] MEDS: KETOROLAC INJ 60 MG/2 ML VIAL 30 MG IM (20:32)
== END 2024-11-09 20:37 | disposition home or self-care (01) ==
PROVIDERS: Emergency Provider Emergency Medicine; PCP Family Medicine
DX: F41.9 Anxiety disorder, unspecified (principal); M25.561 Pain in right knee; F10.20 Alcohol dependence, uncomplicated
CPT/HCPCS: 73562; 96372; 99283; J1885

== ENCOUNTER 2024-11-15 22:16 | Emergency (ER) | payer MEDICAID, SELFPAY ==
[2024-11-15 22:26] VITALS: BP 134/88; PULSE 72; RESP 19; O2SAT 100
--- NOTE | 2024-11-15 22:49 | XR_ITS ---
Examination: CT brain head without contrast. 2-D sagittal coronal reconstructions Date and time of exam:November 16, 2024 0055 hrs. Indications: Patient fell today with injury to the head, head pain CTDI: vol (mGy):51.2 DLP: (mGycm):1006 Technique: Multiple CT axial sections of the brain have been obtained, 5 mm slice thickness. Contrast has not been administered. 2-D sagittal, coronal reconstructions have been obtained Low dose protocols were performed. One or more of the following dose reduction techniques were used; automated exposure control, adjustment of the mA and/or KV according to patient size, use of iterative reconstruction technique. Findings: No significant ventricular enlargement. Intra-axial or extra-axial hemorrhage density is not seen. No mass effect or midline shift Basal cisterns are not remarkable. Fourth ventricle is midline. Cranial vault intact. Impression: Negative for acute hemorrhage, mass effect or midline shift
--- NOTE | 2024-11-15 22:49 | XR_ITS ---
Examination: CT cervical spine without contrast 2-D sagittal reconstructions 2-D coronal reconstructions 3-D reconstructions. Exam date and time:November 16, 2024 0055 hrs. Indications: Patient fell today with injury to the neck, neck pain CTDI:vol (mGy) 9.62 DLP: (mGycm) 199 Technique: Multiple 2 mm axial sections of the cervical spine have been obtained. The coronal and sagittal reconstructions have been obtained. 3-D reconstructions have been obtained. Low dose protocols were performed. One or more of the following dose reduction techniques were used; automated exposure control, adjustment of the mA and/or KV according to patient size, use of iterative reconstruction technique. Findings: Axial sections demonstrate intact base of the skull. C1 exhibit satisfactory relationship to the odontoid. No acute cervical vertebral body fracture seen. Alignment posterior spinous processes satisfactory. Impression: No acute cervical fracture.
--- NOTE | 2024-11-15 22:49 | XR_ITS ---
Examination: CT the thoracic spine, without contrast. 2-D sagittal reconstructions. 2-D coronal reconstructions. 3-D reconstructions. Date and time of exam:November 16, 2024 0055 hrs. Indications: Patient fell today with injury to the back, upper back pain CTDI: vol (mGy):44.6 DLP: (mGycm):1587 Technique: Multiple 1.25 mm axial sections of the thoracic spine have been obtained. 2-D sagittal and coronal reconstructions have been obtained. 3-D reconstructions have been obtained. Low dose protocols were performed. One or more of the following dose reduction techniques were used; automated exposure control, adjustment of the mA and/or KV according to patient size, use of iterative reconstruction technique. Findings: Chronic compressions T3, T4 with surgical fixation, transpedicular No acute thoracic fracture Mild diffuse thoracic disc narrowing Impression: No acute thoracic fracture
--- NOTE | 2024-11-15 22:49 | XR_ITS ---
Examination: CT lumbar spine, without contrast. 2-D sagittal reconstructions. 2-D coronal reconstructions. 3-D reconstructions. Date and time of exam:November 16, 2024 0055 hrs. Indications: Patient fell today with injury to lower back, lower back pain CTDI: vol (mGy):46.6 DLP: (mGycm):1336 Technique: Multiple 1.25 mm axial sections of the lumbar spine without intravenous contrast have been obtained. 2-D sagittal and coronal reconstructions have been obtained. 3-D reconstructions have been obtained. Low dose protocols were performed. One or more of the following dose reduction techniques were used; automated exposure control, adjustment of the mA and/or KV according to patient size, use of iterative reconstruction technique. Findings: Adequate alignment lumbar vertebral bodies No lumbar fracture Moderate distention posteriorly L5-S1 No focal soft tissue disc protrusion Impression: No lumbar fracture
--- NOTE | 2024-11-15 22:50 | XR_ITS ---
Examination: Knee, right , 3 views Technique: Knee AP, lateral, oblique 3 views Date and time of exam: November 25, 2024 11:20 PM Indications: Patient fell today with injury of the right knee, right knee pain. Findings: No fracture or dislocation No foreign body Impression: No fracture or dislocation
--- NOTE | 2024-11-15 22:50 | XR_ITS ---
Examination: Right femur 2 views Technique one AP lateral right femur 2 views Exam date and time: November 25, 2024 at 1120 hrs. Indications: Patient fell today with injury to the femur, right femur pain. Findings: No right hip fracture or hip dislocation Shaft of the femur intact Impression: No acute fracture
--- NOTE | 2024-11-15 22:50 | XR_ITS ---
Examination: Bilateral hips, AP pelvis, 5 views Technique: AP, lateral views both hips, AP pelvis, 5 views Exam date and time: November 25, 2024 11:20 PM Indications: Patient fell today with injury to both hips, bilateral hand pain Findings: No right or left hip fracture or hip dislocation Bones of the pelvis intact Impression: No acute hip or pelvic fracture
--- NOTE | 2024-11-15 22:50 | XR_ITS ---
Examination: Tibia-Fibula, right , 2 views Technique: Tibia-fibula AP lateral 2 views Date and time of exam: November 25, 2024 1112 hrs. Indications: Patient fell today with injury to lower leg, lower leg pain. Findings: No acute fracture No dislocation No foreign body Impression: No acute fracture
--- NOTE | 2024-11-15 22:53 | EDRME_ITS ---
Rapid Medical Screening Exam [facility] Arrival date/time: 11/15/24 22:16 This is a 33-year-old male that comes in with complaints of a fall. Per patient patient admits to drinking today. Patient went on a long walk and fell to the floor. Patient denies loss of consciousness. Patient states his right leg gave out under him. Patient states this has happened before. Patient denies hitting his head or neck. Patient currently complains of headache, neck pain, mid back pain and lower back pain. Patient denies any numbness or tingling. Patient also complains of right hip pain right knee pain and right lower leg pain. Patient has no tenderness to palpation. Patient denies any other drug use. Patient has a history of a seizure disorder per EMS police had to be on scene because patient was initially uncooperative. I have greeted and performed a focused initial assessment of this patient. Initial appropriate labs ordered at this time. A comprehensive ED assessment and evaluation of the patient and analysis of all test and completion of medical decision making process will be conducted by additional ED provider. . Chief Complaint: Fall Time Seen by Provider: 11/15/24 22:28 Vital signs: Vital Signs Pulse Rate 72 11/15/24 22:26 Respiratory Rate 19 11/15/24 22:26 Blood Pressure 134/88 H 11/15/24 22:26 Pulse Oximetry (%) 100 11/15/24 22:26 Oxygen Delivery Method Room Air 11/15/24 22:26
[2024-11-15 23:40] VITALS: BMI 43.5
--- NOTE | 2024-11-16 01:53 | PRELIM_ITS ---
CT scan of the cervical spine without intravenous contrast (axial sections with sagittal and coronal reformats) November 16, 2024 at 0053 hours Clinical History: Fall No prior study is available for comparison. Findings: There is no fracture or traumatic subluxation. There is a hypodense nodule in the right lobe of the thyroid, measuring 13 mm. The prevertebral soft tissues are unremarkable. Impression: No evidence of fracture or t subluxation. Report Electronically Signed By: Chris Flores 11/16/2024 1:52:49 AM [EST]
--- NOTE | 2024-11-16 01:53 | PRELIM_ITS ---
CT scan of the head without intravenous contrast (axial sections with sagittal and coronal reformats) November 16, 2024 at 0053 hours Clinical History: Fall No prior study is available for comparison. Findings: No evidence of intracranial hemorrhage, mass effect or midline shift. The ventricles and CSF spaces are unremarkable. The calvarium is intact. There is mild mucosal thickening in bilateral maxillary sinuses. The mastoid air cells and the other visualized paranasal sinuses are clear. Impression: No evidence of intracranial hemorrhage, midline shift or calvarial fracture. Report Electronically Signed By: Chris Flores 11/16/2024 1:52:00 AM [EST]
--- NOTE | 2024-11-16 02:03 | PRELIM_ITS ---
CT scan of the lumbar spine without intravenous contrast (axial sections with sagittal and coronal reformats) November 16, 2024 at 0059 hours Clinical History: Fall. Comparison: No prior study is available for comparison. Findings: There is no fracture or subluxation. The vertebral body height and intervertebral disc spaces are normal. The soft tissues are unremarkable. Impression: No evidence of fracture, subluxation or significant soft tissue injury. Report Electronically Signed By: Chris Flores 11/16/2024 2:02:14 AM [EST]
--- NOTE | 2024-11-16 02:05 | PRELIM_ITS ---
CT scan of the thoracic spine without intravenous contrast (axial sections with sagittal and coronal reformats) November 16, 2024 at 0059 hours Clinical History: Fall. No prior study is available for comparison. Findings: There is no fracture or traumatic subluxation. There is a chronic compression fractures of the T3 and T4 vertebral body. There is spinal fusion at the T2-T5 levels with fusion rods and pedicle screws. The thoracic vertebrae are normally aligned. The intervertebral disc spaces are maintained. There is no pre or paravertebral soft tissue abnormality. Impression: No acute fracture or traumatic subluxation. Chronic compression fracture of the T3 and T4 vertebral body. Report Electronically Signed By: Chris Flores 11/16/2024 2:04:36 AM [EST]
--- NOTE | 2024-11-16 02:39 | EDNOTE_ITS ---
ED Fall Injury RME/HPI General Chief Complaint: Fall Stated Complaint: RIGHT HIP PAIN Time Seen by Provider: 11/15/24 22:28 Source: patient Arrival date/time: 11/15/24 22:16 Mode of arrival: ambulatory Limitations: no limitations RME / HPI RME / HPI Narrative: Dr. Max?s Main ED Evaluation: 33-year-old male with history of seizure disorder presents with complaints of a fall. He admits to consuming alcohol today and reports that while on a long walk, his right leg gave out, causing him to fall. He denies loss of consc iousness, head trauma, or neck injury but currently reports headache, neck pain, mid-back pain, lower back pain, as well as pain in the right hip, knee, and lower leg. He denies any numbness, tingling, or other drug use. Related Data Previous Rx's ?Medication ?Instructions ?Recorded chlordiazepoxide HCl 25 mg capsule 25 mg PO QDAY #3 ca ps 08/08/24 levetiracetam 750 mg tablet 750 mg PO BID #60 tabs 05/03 (Keppra) levetiracetam 500 mg tablet 500 mg PO BID #30 tabs 10/03 (Keppra) levetiracetam 1,000 mg tablet 1,000 mg PO BID #60 tabs 10/20/24 (Keppra) lorazepam 0.5 mg tablet (Ativan) 0.5 mg PO QDAY PRN an xiety #7 tabs 11/09/24 Allergies Allergy/AdvReac Type Severity Reaction Status Date / Time sulfamethoxazole Allergy Intermediate VOMIT Verified 11/09/24 18:42 trimethoprim Allergy Intermediate VOMIT Verified 11/09/24 18:42 Review of Systems Review of Systems Systems Reviewed: All systems reviewed, normal except as documented Past Medical History Past Medical History NEUROLOGIC: Positive Seizures; Negative Neurological Disorders CARDIAC: Negative Cardiac Disorders or Congestive Heart Failure RESPIRATORY: Negative Chronic Obstructive Pulmonary Disease (COPD) GASTROINTESTINAL: Negative Gastrointestinal Disorders GENITOURINARY: Negative Genitourinary Disorders or Renal Disease MUSCULOSKELETAL: Negative Musculoskeletal Disorders ENDOCRINE: Negative Endocrine Disorders, Diabetes Mellitus Type 1 or Diabetes Mellitus Type 2 HEMATOLOGIC: Negative Blood Disorders OTHER HISTORY: Positive Hospitalization and Falls; Negative Autoimmune Disease, Blood Transfusions, Blood Transfusion Reaction or Anesthesia Reactions Family History FAMILY HISTORY: Positive Family Respiratory Disorders, Family Cancer and Family Surgery; Negative Family Psychiatric Problems, Family Cardiac Disorders, Family Gastrointestinal Problems or Family Anesthesia Reaction Surgical History SURGICAL: Negative Joint Replacement Social History SMOKING STATUS: Never smoker SECOND HAND EXPOSURE: No ED Exam Narrative Physical exam: GENERAL: In general the patient is awake, interactive, in an emergency department gurney. He is following commands with no evidence of facial trauma. HEAD/EYES/EARS/NOSE/THROAT: normo-cephalic, atraumatic, mucus membranes are moist. No cervical tenderness palpation midline. Supple neck. No septal hematoma. No blood external canal. CARDIOVASCULAR: regular rate and regular rhythm, no murmurs, heart sounds are not distant, strong pulses in all four extremities that are equal and symmetric bilateral upper and lower extremities, normal capillary refill. CHEST/PULMONARY: normal chest rise and fall, good air movement, clear to auscultation bilaterally, normal inspiratory to expiratory ratios without evidence of respiratory distress. ABDOMEN: soft, not tender, no masses appreciated BACK: normal range of motion without pain. NEUROLOGICAL: cranio-facial features are symmetric, moves all four extremities equally without obvious limitations or weakness. EXTREMITY: no tenderness to palpation over the long bones or large joints of the bilateral upper and lower extremities, no joint swelling, no joint erythema, no signs of trauma, no unilateral leg swelling and no peripheral edema. The patient experiences mild pain with hip flexion, but no significant restriction in range of motion is noted. SKIN: warm, dry, well-perfused, no rash, The patient has an abrasion on the anterior left abebe. PSYCH: calm, cooperative, no evidence of psychosis or agitation General Limitations: Present no limitations Course Quality Measures none Orders Category Date Time Status CT cervical spine wo con Stat Exams 11/15/24 22:[address] head/brain wo con Stat Exams 11/15/24 22:[address] lumbar spine wo con Stat Exams 11/15/24 22:[address] thoracic spine wo con Stat Exams 11/15/24 22:49 Taken XR femur RT 2V Stat Exams 11/15/24 22:50 Completed XR hip BI w pelvis 3-4V Stat Exams 11/15/24 22:50 Completed XR knee RT 3V Stat Exams 11/15/24 22:50 Completed XR tibia fibula RT 2V Stat Exams 11/15/24 22:50 Completed Acetaminophen Tab [Tylenol Tab] Med 11/16/24 02:46 Discontinued 650 mg PO X1 ONE Vital Signs Vital signs: Vital Signs Pulse Rate 72 11/15/24 22:26 Respiratory Rate 19 11/15/24 22:26 Blood Pressure 134/88 H 11/15/24 22:26 Pulse Oximetry (%) 100 11/15/24 22:26 Oxygen Delivery Method Room Air 11/15/24 22:26 Fall MDM Narrative MDM Narrative:: Patient is awake and talking at this time. He is not clinically intoxicated even though he was drinking earlier today. Neurovascular intact. Patient has old compression fracture but no acute findings and otherwise x-ray and CT does not show hip fracture or knee involvement. Scribe Attestation: I, Adela Tolliver, am scribing for and in the presence of Dr. Max. Provider Notation: Although this document has been carefully reviewed, there may still be some phonetic and other typographical errors. These errors are purely grammatical due to imperfections in the software program and should not be construed in any way to compromise the substance of the patient's medical care during this visit. Patient data External records reviewed:: [facility] previous records Clinical information provided by:: patient Social determinants that could affect healthcare access:: none Patient has the following chronic illnesses:: see PMH How is presenting disease/condition affected by chronic disease/condition?: uneffected by Evaluation data The following diagnostics were reviewed and interpreted by me:: lab results and radiology exam(s) Lab and/or radiology exams considered but not ordered:: na Interpretation Summary: I personally reviewed the radiology data and agree with the radiologist's interpretation. Examination: Tibia-Fibula, right , 2 views Technique: Tibia-fibula AP lateral 2 views Date and time of exam: November 25, 2024 1112 hrs. Indications: Patient fell today with injury to lower leg, lower leg pain. Findings: No acute fracture No dislocation No foreign body Impression: No acute fracture Dictated By: Arturo Castillo MD Examination: Knee, right , 3 views Technique: Knee AP, lateral, oblique 3 views Date and time of exam: November 25, 2024 11:20 PM Indications: Patient fell today with injury of the right knee, right knee pain. Findings: No fracture or dislocation No foreign body Impression: No fracture or dislocation Dictated By: Arturo Castillo MD Examination: Bilateral hips, AP pelvis, 5 views Technique: AP, lateral views both hips, AP pelvis, 5 views Exam date and time: November 25, 2024 11:20 PM Indications: Patient fell today with injury to both hips, bilateral hand pain Findings: No right or left hip fracture or hip dislocation Bones of the pelvis intact Impression: No acute hip or pelvic fracture Dictated By: Arturo Castillo MD Examination: Right femur 2 views Technique one AP lateral right femur 2 views Exam date and time: November 25, 2024 at 1120 hrs. Indications: Patient fell today with injury to the femur, right femur pain. Findings: No right hip fracture or hip dislocation Shaft of the femur intact Impression: No acute fracture Dictated By: Arturo Castillo MD CT scan of the head without intravenous contrast (axial sections with sagittal and coronal reformats) November 16, 2024 at 0053 hours Clinical History: Fall No prior study is available for comparison. Findings: No evidence of intracranial hemorrhage, mass effect or midline shift. The ventricles and CSF spaces are unremarkable. The calvarium is intact. There is mild mucosal thickening in bilateral maxillary sinuses. The mastoid air cells and the other visualized paranasal sinuses are clear. Impression: No evidence of intracranial hemorrhage, midline shift or calvarial fracture. Report Electronically Signed By: Chris Flores 11/16/2024 1:52:00 AM [EST] CT scan of the cervical spine without intravenous contrast (axial sections with sagittal and coronal reformats) November 16, 2024 at 0053 hours Clinical History: Fall No prior study is available for comparison. Findings: There is no fracture or traumatic subluxation. There is a hypodense nodule in the right lobe of the thyroid, measuring 13 mm. The prevertebral soft tissues are unremarkable. Impression: No evidence of fracture or t subluxation. Report Electronically Signed By: Chris Flores 11/16/2024 1:52:49 AM [EST] CT scan of the lumbar spine without intravenous contrast (axial sections with sagittal and coronal reformats) November 16, 2024 at 0059 hours Clinical History: Fall. Comparison: No prior study is available for comparison. Findings: There is no fracture or subluxation. The vertebral body height and intervertebral disc spaces are normal. The soft tissues are unremarkable. Impression: No evidence of fracture, subluxation or significant soft tissue injury. Report Electronically Signed By: Chris Flores 11/16/2024 2:02:14 AM [EST] CT scan of the thoracic spine without intravenous contrast (axial sections with sagittal and coronal reformats) November 16, 2024 at 0059 hours Clinical History: Fall. No prior study is available for comparison. Findings: There is no fracture or traumatic subluxation. There is a chronic compression fractures of the T3 and T4 vertebral body. There is spinal fusion at the T2-T5 levels with fusion rods and pedicle screws. The thoracic vertebrae are normally aligned. The intervertebral disc spaces are maintained. There is no pre or paravertebral soft tissue abnormality. Impression: No acute fracture or traumatic subluxation. Chronic compression fracture of the T3 and T4 vertebral body. Report Electronically Signed By: Chris Flores 11/16/2024 2:04:36 AM [EST] Medications / Prescriptions Medications or Prescriptions considered but not ordered:: na Medication administrations:: Medication Administration History Discontinued Medications Acetaminophen (Acetaminophen 325 Mg Tablet) 650 mg PO X1 ONE Stop: 11/16/24 02:47 as above, if any Consultations Consultation(s) initiated? (list below): No Diagnosis Fall Differential Diagnosis: other (fall, alcohol use, fracture dislocation, neck fracture, bleed, abrasion, laceration) Most likely diagnosis given after review of the tests above:: see clinical impression below Admission Indicated Admission indicated?: not indicated Admission Request Was there a request for admission?: No Disposition Plan Disposition Plan: Discharge Discharge Attestation Discharge Attestation: The patient and all family members were given an opportunity to ask questions and understood the discharge instructions. Discharge instructions specifically effects, indications for sooner follow up or return to the emergency department, and the expected course of current diagnosis. Patient condition: Stable Discharge Plan Plan Patient Disposition: HOME (Self Care) Patient condition on transfer: Stable Prescriptions/Referrals Prescriptions/Med Rec: No Action chlordiazepoxide HCl 25 mg capsule 25 mg PO QDAY Qty: 3 0RF levetiracetam [Keppra] 750 mg tablet 750 mg PO BID Qty: 60 0RF levetiracetam [Keppra] 500 mg tablet 500 mg PO BID Qty: 30 0RF levetiracetam [Keppra] 1,000 mg tablet 1,000 mg PO BID Qty: 60 0RF lorazepam [Ativan] 0.5 mg tablet 0.5 mg PO QDAY PRN (Reason: anxiety) Qty: 7 0RF Problem List Clinical Impression: Alcohol use, Contusion of hip Patient/Caregiver Discharge Instructions Education Materials: ED Abrasions, ED Hip Contusion Additional Instructions: You can take [id number] Tylenol 650 mg 3 times a day for the next 2 days. Please avoid drinking and falling so you do not hurt yourself. Return to the emergency department for any worsening symptoms, or any other concerns. Print Language: Croatian Stand Alone Forms: [employer] Award Info., Patient Portal Info Letter
[2024-11-16] MEDS: ACETAMINOPHEN 325 MG TABLET 650 MG PO (03:08)
[2024-11-16 03:16] VITALS: BP 107/77; PULSE 73; RESP 18; TEMP 36.6; O2SAT 100
== END 2024-11-16 03:17 | disposition home or self-care (01) ==
LOC: SERX 11-16 03:02
PROVIDERS: Emergency Provider Emergency Medicine
DX: S70.01XA Contusion of right hip, initial encounter (principal); W19.XXXA Unspecified fall, initial encounter; Y93.01 Activity, walking, marching and hiking; F10.90 Alcohol use, unspecified, uncomplicated; R51.9 Headache, unspecified; M54.2 Cervicalgia; M25.561 Pain in right knee
CPT/HCPCS: 70450; 72125; 72128; 72131; 73522; 73552; 73562; 73590; 99284; A9270

== ENCOUNTER 2024-11-27 20:19 | Emergency (ER) | payer MEDICAID, SELFPAY ==
[2024-11-27 20:20] VITALS: BMI 29.5
[2024-11-27 21:12] VITALS: BP 134/90; PULSE 99; RESP 18; TEMP 36.8; O2SAT 98
--- NOTE | 2024-11-27 21:19 | PD.EDRME ---
Rapid Medical Screening Exam E Arrival date/time: 11/27/24 20:19 33M with history of seizures and anxiety presents to ED with panic attack and thoughts of hurting others. Patient denies SI. Chief Complaint: Anxiety Vital signs: Vital Signs Temperature 98.3 F 11/27/24 21:12 Pulse Rate 99 11/27/24 21:12 Respiratory Rate 18 11/27/24 21:12 Blood Pressure 134/90 H 11/27/24 21:12 Pulse Oximetry (%) 98 11/27/24 21:12 Oxygen Delivery Method Room Air 11/27/24 21:12
[2024-11-27 21:48] LABS: Basophils % (Auto) 0 % (0-2.5); Eosinophils # (Auto) 0.1 Thou/mm3 (0.0-0.5); Eosinophils % (Auto) 1 % (0-10); Hematocrit 42.7 % (41.0-53.0); Hemoglobin 15.3 g/dL (13.5-16.0); Immature Granulocytes % (Auto) 0 % (0-0); Immature Granulocytes Auto 0.02 Thou/mm3 (0.00-0.00); Lymphocytes # (Auto) 2.3 Thou/mm3 (1.0-4.8); Lymphocytes % (Auto) 39 % (10-50); Mean Corpuscular HGB Conc 35.8 g/dl (31.0-37.0); Mean Corpuscular Hemoglobin 29.4 pg (25.0-35.0); Mean Corpuscular Volume 82 fL (80-100); Monocytes # (Auto) 0.4 Thou/mm3 (0.0-0.8); Monocytes % (Auto) 6 % (0-12); Neutrophils # (Auto) 3.1 Thou/mm3 (1.8-7.7); Neutrophils % (Auto) 53 % (37-80); Nucleated Red Blood Cell % 0 /100 WBC (0); Platelet Count 155 Thou/mm3 (140-440); RDW Standard Deviation 42.3 fL (35.1-43.9); White Blood Count 5.8 Thou/mm3 (3.8-10.6)
--- NOTE | 2024-11-27 22:03 | PC.NURSE ---
PT GREETED PT BROUGHT INTO ROOM 16. PT APPEARS WELL GROOMED AND IN NO IMMEDIATE DISTRESS. PT DENIES SI OR HI AT THIS TIME. PT STATES HIS ANXIETY COMES FROM NIGHT TERRORS HE HAS AT TIMES DURING THE NIGHT. HE STATED THAT HIS ANXIETY COULD BE CAUSED BY KNOWING HE COULD POSSIBLY HAVE NIGHT TERRORS. PT ARRIVED BY HIMSELF AND STATES HE DOES HAVE A PLACE TO GO TO IF DISCHARGED.
[2024-11-27] MEDS: ALPRazoLAM 0.25 MG TABLET 0.75 MG PO (22:05)
[2024-11-27 22:06] LABS: Acetaminophen < 2.0 mcg/mL (10.0-20.0); Alanine Aminotransferase 25 U/L (10-49); Albumin, Serum 4.9 gm/dL (3.5-5.0); Albumin/Globulin Ratio 1.9 (1.2-2.2); Alcohol, Blood Medical 226.6 mg/dL (0-10.0); Alkaline Phosphatase 94 U/L (46-116); Anion Gap 11 (7-16); Aspartate Amino Transferase 30 U/L (0-34); BUN/Creatinine Ratio 8 Ratio (12-20); Bilirubin,Total 0.4 mg/dL (0.3-1.2); Blood Urea Nitrogen 8 mg/dL (9-23); Calcium 9.7 mg/dL (8.3-10.6); Calcium (Corrected) 9.7 mg/dL (8.5-10.1); Carbon Dioxide 24.5 mMol/L (20.0-31.0); Chloride 109 mMol/L (98-107); Estimated Creatinine Clearance 119.2 mL/min (>60); Globulin 2.6 gm/dL (2.3-3.5); Glucose 92 mg/dL (74-106); Magnesium 2.2 mg/dL (1.6-2.6); Osmolality,Calculated 285 (275-295); Potassium 3.9 mMol/L (3.4-5.1); Salicylate < 3.0 mg/dL; Sodium 144 mMol/L (136-145); Thyroid Stimulating Hormone 2.48 uIU/mL (0.55-4.78); Total Protein 7.5 gm/dL (5.7-8.2); eGFR > 60 See Note
[2024-11-27 22:20] LABS: Amphetamine/Methamp Scrn,U Negative (Negative); Barbiturate Screen,Urine Negative (Negative); Benzodiazepines Screen,Urine Negative (Negative); Benzoylecgonine Screen, Ur Negative (Negative); Fentanyl Screen,Urine Negative (Negative); Opiate Screen,Urine Negative (Negative); THC Screen,Urine Positive (Negative)
[2024-11-27 22:31] VITALS: BP 121/86; PULSE 95; RESP 17; TEMP 36.9; O2SAT 100
--- NOTE | 2024-11-27 23:18 | PD.EDPSYCH ---
ED Psych RME/HPI General Chief Complaint: Psychiatric Symptoms Stated Complaint: ANXIETY, NEEDS LABS DRAWN Time Seen by Provider: 11/27/24 21:32 Arrival date/time: 11/27/24 20:19 RME / HPI RME / HPI Narrative: 11/27/24 20:19 33M with history of seizures and anxiety presents to ED with panic attack and thoughts of hurting others. Patient denies SI. -------- This section includes all my notes and documentations, including HPI, PE, and ED course. Dread Mclean MD HPI: 33yo male with a history of seizures, anxiety presents to the ED for a mental evaluation. Patient states he's had anxiety today and endorses having HI. Reports thoughts of slicing people living with him. He denies any SI or active plan. He denies having any hallucinations. No other complaints reported. ROS: All negative except as documented in HPI. Physical Exam: General: Alert and oriented. Appears paranoid. Flat affect. Eyes: Conjunctivae and lids clear. EOMI. PERRL. ENT: No nasal congestion. Neck: Supple. Heart: RRR. Lungs: No respiratory distress. Good air movement. No rhonchi, wheezing, rales. Abdomen: Soft and nontender. Legs: No clubbing, cyanosis, edema. Skin: Warm and dry. Neuro: Alert and oriented X 3. Cranial nerves through 12 grossly normal. No peripheral motor deficits. I reviewed all diagnostic test results. Blood tests and urine tests remarkable for serum alcohol 226.6 and positive UDS for THC. At this point, diagnoses include homicidal ideation and medical intoxication. Treatment here included Xanax 0.75 mg, no improvement noted. With oral Ativan 2 mg, she improved and slept well. Patient is medically clear for psychiatric evaluation and treatment. At 6 AM on 11/28/2024, the care of the patient was transferred to Dr Holder. Dread Mclean MD Related Data Previous Rx's ?Medication ?Instructions ?Recorded chlordiazepoxide HCl 25 mg capsule 25 mg PO QDAY #3 caps 08/08/24 levetiracetam 750 mg tablet 750 mg PO BID #60 tabs 09/16/24 (Keppra) levetiracetam 500 mg tablet 500 mg PO BID #30 tabs 10/10/24 (Keppra) levetiracetam 1,000 mg tablet 1,000 mg PO BID #60 tabs 10/20/24 (Keppra) lorazepam 0.5 mg tablet (Ativan) 0.5 mg PO QDAY PRN anxiety #7 tabs 11/09/24 Allergies Allergy/AdvReac Type Severity Reaction Status Date / Time sulfamethoxazole Allergy Intermediate VOMIT Verified 11/27/24 20:20 trimethoprim Allergy Intermediate VOMIT Verified 11/27/24 20:20 Review of Systems Review of Systems Systems Reviewed: All systems reviewed, normal except as documented Past Medical History Past Medical History NEUROLOGIC: Positive Seizures; Negative Neurological Disorders CARDIAC: Negative Cardiac Disorders or Congestive Heart Failure RESPIRATORY: Negative Chronic Obstructive Pulmonary Disease (COPD) GASTROINTESTINAL: Negative Gastrointestinal Disorders GENITOURINARY: Negative Genitourinary Disorders or Renal Disease MUSCULOSKELETAL: Negative Musculoskeletal Disorders ENDOCRINE: Negative Endocrine Disorders, Diabetes Mellitus Type 1 or Diabetes Mellitus Type 2 HEMATOLOGIC: Negative Blood Disorders OTHER HISTORY: Positive Hospitalization and Falls; Negative Autoimmune Disease, Blood Transfusions, Blood Transfusion Reaction or Anesthesia Reactions Family History FAMILY HISTORY: Positive Family Respiratory Disorders, Family Cancer and Family Surgery; Negative Family Psychiatric Problems, Family Cardiac Disorders, Family Gastrointestinal Problems or Family Anesthesia Reaction Surgical History SURGICAL: Negative Joint Replacement Social History SMOKING STATUS: Former smoker SECOND HAND EXPOSURE: No ED Exam Narrative Physical exam: As noted in HPI. Course Quality Measures none Orders Category Date Time Status 1799 Psychiatric Hold NOW Care 11/27/24 23:15 Ordered Acetaminophen Stat Lab 11/27/24 21:25 Completed Alcohol, Blood Medical Stat Lab 11/27/24 21:25 Completed CBC Stat Lab 11/27/24 21:25 Completed CMP [Comprehensive Metabolic Panel] Stat Lab 11/27/24 21:25 Completed Drug Screen,Urine Stat Lab 11/27/24 21:35 Completed Magnesium Stat Lab 11/27/24 21:25 Completed Salicylate Stat Lab 11/27/24 21:25 Completed TSH [Thyroid Stimulating Hormone] Stat Lab 11/27/24 21:25 Completed ALPRazoLAM [Xanax] Med 11/27/24 21:55 Discontinued 0.75 mg PO X1 ONE LORazepam [Ativan] Med 11/27/24 23:07 Discontinued 2 mg PO X1 ONE Referral Account Manager [employer] NOW 11/27/24 23:07 Active Vital Signs Vital signs: Vital Signs Temperature 98.3 F 11/27/24 21:12 Pulse Rate 99 11/27/24 21:12 Respiratory Rate 18 11/27/24 21:12 Blood Pressure 134/90 H 11/27/24 21:12 Pulse Oximetry (%) 98 11/27/24 21:12 Oxygen Delivery Method Room Air 11/27/24 21:12 Psych MDM Narrative MDM Narrative:: Scribe Attestation: 11/27/24 Cristine Tuttle am scribing for and in the presence of Dr. Mclean. Patient data External records reviewed:: [facility] previous records (Per chart review, patient was seen here on 11/16/24 for alcohol use.) Clinical information provided by:: patient Social determinants that could affect healthcare access:: alcohol use Patient has the following chronic illnesses:: seizures How is presenting disease/condition affected by chronic disease/condition?: uneffected by Evaluation data The following diagnostics were reviewed and interpreted by me:: lab results Lab and/or radiology exams considered but not ordered:: none Interpretation Summary: Homicidal ideation and alcohol intoxication Medications / Prescriptions Medications or Prescriptions considered but not ordered:: none Medication administrations:: Medication Administration History Discontinued Medications Alprazolam (Alprazolam 0.25 Mg Tablet) 0.75 mg PO X1 ONE Stop: 11/27/24 21:56 Last Admin: 11/27/24 22:05 Dose: 0.75 mg Documented By: OSWALDO Lorazepam (Lorazepam 0.5 Mg Tablet) 2 mg PO X1 ONE Stop: 11/27/24 23:08 Last Admin: 11/27/24 23:29 Dose: 2 mg Documented By: OSWALDO Xanax, Ativan Consultations Consultation(s) initiated? (list below): No Diagnosis Psych Differential Diagnosis: acute psychosis, chronic schizophrenia, suicidal ideation, bipolar disorder, depression, drug-induced psychotic disorder, acute anxiety and other (Homicidal ideation) Most likely diagnosis given after review of the tests above:: Homicidal ideation and alcohol intoxication Admission Indicated Admission indicated?: not indicated Explain why admission is indicated or not indicated:: No psychiatric service here. Admission Request Was there a request for admission?: No Disposition Plan Disposition Plan: other (specify) (Signed out to Dr. Holder at 0600 pending crisis evaluation.) Discharge Plan Prescriptions/Referrals Prescriptions/Med Rec: No Action chlordiazepoxide HCl 25 mg capsule 25 mg PO QDAY Qty: 3 0RF levetiracetam [Keppra] 750 mg tablet 750 mg PO BID Qty: 60 0RF levetiracetam [Keppra] 500 mg tablet 500 mg PO BID Qty: 30 0RF levetiracetam [Keppra] 1,000 mg tablet 1,000 mg PO BID Qty: 60 0RF lorazepam [Ativan] 0.5 mg tablet 0.5 mg PO QDAY PRN (Reason: anxiety) Qty: 7 0RF Referrals: Lesley Flores MD [Primary Care Provider] - In 1 week Problem List Clinical Impression: Homicidal ideation, Alcohol intoxication Patient/Caregiver Discharge Instructions Print Language: Amharic
[2024-11-27] MEDS: LORazepam 0.5 MG TABLET 2 MG PO (23:29)
[2024-11-28 01:12] VITALS: BP 138/76; PULSE 76; RESP 18; TEMP 36.7; O2SAT 96
--- NOTE | 2024-11-28 05:57 | EDNOTE_ITS ---
Emergency Room Addendum Addendum Narrative: 0600: Care assumed from Dr. Mclean, the previous shift emergency physician. Past medical, surgical, social and family history reviewed. Vitals and home medications reviewed. I will assume the care of the patient at this time. Please refer to the emergency department record for history and examination from initial visit.? The patient was placed in ED observation care at 11/28/2024 at 0600 hours. The patient was placed in ED observation care because of undifferentiated decompensated behavioral health evaluation, no behavioral health bed available. The patients past medical history, social history, and family history were reviewed. The plan of care will include serial examinations. While in ED observation the patient will have access to water, food, and personal hygiene. If the patient takes home medication(s), they will be continued in ED observation. Physical exam by me shows patient under no acute distress at this time. 0743: [facility] will work on LPS facility placement, patient on a 5150 hold. 1000: Patient accepted to [facility], ETA 1145 hours. 1145: EMS here to transport the patient to [facility]. ED observation care ended at 11/28/2024 at 1145 hours.
[2024-11-28 06:02] VITALS: BP 100/57; PULSE 77; RESP 17; TEMP 36.7; O2SAT 96
--- NOTE | 2024-11-28 07:44 | PC.CC ---
Patient is a 33 year-old male who presents to the hospital for mental health evaluation. ASWTavia made [id number] contact with the patient introduced self, role, and reason for visit. Patient appears alert and oriented to self, location, and situation. ASW discussed limits of confidentiality. Patient made appropriate eye contact. Patient was cooperative. Patient?s behavior appeared ordinary. No signs of delusions or hallucinations. Patient reports he is having homicidal ideations no one specific but with plan and intention. Patient disclosed his plan would be to cut or light someone on fire. Patient denied past suicide attempts. Patient denied suicidal ideations, visual and auditory hallucinations. Patient stated, I talk to myself a lot. Patient reports last month he was placed on a 5150-hold for Danger to Others and was sent to [facility] for treatment. Patient is connected to [facility] ([facility]) but does not know what his diagnosis is, he was seen last week by his Psychiatrist, Dr. Burr. Patient reports he was no prescribed psychotropic medications. Patient has a mattress spring encaser, Noah at [facility]. Patient reports he would not feel safety planning as he continues to have homicidal ideations. Upon clinical consultation with TERMINOLOGIST, Joana Radha patient will be placed on a 5150-hold for Danger to Others. Patient's 1798 hold will be credited. ASW provided update of 5150-hold and discharge plan to [facility] facility to Dr. Holder and gym supervisor Kaitlin. [place] [id number]. ASW to send referral via [facility] to [facility] facilties.
[2024-11-28 07:51] VITALS: BP 103/54; PULSE 87; RESP 19; TEMP 36.6; O2SAT 97
--- NOTE | 2024-11-28 08:47 | PC.NURSE ---
[facility]
--- NOTE | 2024-11-28 09:01 | PC.NURSE ---
RN reported to [facility] with Brooke at [phone], accepting Dr WALDEN [address] room 215 bed A, ETA LORA. Call Brooke once transport is ready.
--- NOTE | 2024-11-28 09:27 | PC.NURSE ---
MARTHA FROM [facility] CALLING TO INQUIRE IS PT STILLS NEEDS PLACEMENT AND THIS WRITE INFORMED HER THAT THE PT. HAS BEEN ACCEPTED AT ANOTHER FACILITY
--- NOTE | 2024-11-28 09:37 | PC.CC ---
Addendum entered by Tavia Santoyo 11/28/24 10:47: Patient was provided with update that he was accepted to [facility]. Patient was receptive to information. Original Note: [facility] that patient was accepted to: [facility], accepting staff is Beba, unit is 200 room 215-bed a, and accepting physician is Dr. Polk. JULIO completed PCS and scheduled HLOC for 1145 am.
[2024-11-28 09:45] VITALS: BP 126/72; PULSE 79; RESP 18; TEMP 36.9; O2SAT 97
--- NOTE | 2024-11-28 09:46 | PC.NURSE ---
Patient vitals done @ 0946, ice water provided, breakfast try collected. BF
--- NOTE | 2024-11-28 10:17 | PC.NURSE ---
Personal belongings removed from locker #2 and given to EMS Crew. BF
--- NOTE | 2024-11-28 10:22 | PC.NURSE ---
Patient informed of transfer to [facility], agrees with plan, all patient belongings return to patient. All questions answered.
== END 2024-11-28 11:06 ==
PROVIDERS: Physician Assistant; Emergency Provider Emergency Medicine; PCP Internal Medicine
DX: Z04.6 Encounter for general psychiatric examination, requested by authority (principal); R45.850 Homicidal ideations; F10.129 Alcohol abuse with intoxication, unspecified; Y90.7 Blood alcohol level of 200-239 mg/100 ml; Z75.1 Person awaiting admission to adequate facility elsewhere
CPT/HCPCS: 36415; 80053; 80307; 80320; 80329; 83735; 84443; 85025; 90839; 96127; 99285; A9270; G0480

== ENCOUNTER 2024-12-13 21:00 | Emergency (ER) | payer MEDICAID, SELFPAY ==
[2024-12-13 21:01] VITALS: BMI 31.0
[2024-12-13 21:24] VITALS: BP 131/79; PULSE 100; RESP 17; RESP 18; TEMP 36.8; O2SAT 95; O2SAT 96
[2024-12-13 22:02] LABS: Basophils % (Auto) 1 % (0-2.5); Eosinophils # (Auto) 0.1 Thou/mm3 (0.0-0.5); Eosinophils % (Auto) 2 % (0-10); Hematocrit 38.3 % (41.0-53.0); Hemoglobin 13.5 g/dL (13.5-16.0); Immature Granulocytes % (Auto) 0 % (0-0); Immature Granulocytes Auto 0.01 Thou/mm3 (0.00-0.00); Lymphocytes # (Auto) 2.2 Thou/mm3 (1.0-4.8); Lymphocytes % (Auto) 43 % (10-50); Mean Corpuscular HGB Conc 35.2 g/dl (31.0-37.0); Mean Corpuscular Hemoglobin 29.1 pg (25.0-35.0); Mean Corpuscular Volume 83 fL (80-100); Monocytes # (Auto) 0.3 Thou/mm3 (0.0-0.8); Monocytes % (Auto) 6 % (0-12); Neutrophils # (Auto) 2.6 Thou/mm3 (1.8-7.7); Neutrophils % (Auto) 49 % (37-80); Nucleated Red Blood Cell % 0 /100 WBC (0); Platelet Count 163 Thou/mm3 (140-440); RDW Standard Deviation 41.2 fL (35.1-43.9); Red Blood Count 4.64 Miln/mm3 (4.50-5.90); White Blood Count 5.2 Thou/mm3 (3.8-10.6)
--- NOTE | 2024-12-13 22:09 | PC.NURSE ---
Pt presents with c/o HI. States he would like to strangle his and also kill another person in the house but would not say who. Pt. states he was just DC'd from [facility] and given a new med: Prozac and ativan BID. Pt states he was talking to Laura, a therapist there who urged him to return if he had these feelings.
[2024-12-13 22:27] LABS: Acetaminophen < 2.0 mcg/mL (10.0-20.0); Alanine Aminotransferase 22 U/L (10-49); Albumin, Serum 4.2 gm/dL (3.5-5.0); Albumin/Globulin Ratio 1.9 (1.2-2.2); Alcohol, Blood Medical 272.6 mg/dL (0-10.0); Alkaline Phosphatase 90 U/L (46-116); Anion Gap 11 (7-16); Aspartate Amino Transferase 24 U/L (0-34); BUN/Creatinine Ratio 5 Ratio (12-20); Bilirubin,Total 0.3 mg/dL (0.3-1.2); Blood Urea Nitrogen 7 mg/dL (9-23); Calcium 8.6 mg/dL (8.3-10.6); Calcium (Corrected) 8.6 mg/dL (8.5-10.1); Carbon Dioxide 25.1 mMol/L (20.0-31.0); Chloride 108 mMol/L (98-107); Creatinine (Component) 1.3 mg/dL (0.6-1.3); Estimated Creatinine Clearance 92.9 mL/min (>60); Globulin 2.2 gm/dL (2.3-3.5); Glucose 103 mg/dL (74-106); Magnesium 1.9 mg/dL (1.6-2.6); Osmolality,Calculated 284 (275-295); Potassium 3.3 mMol/L (3.4-5.1); Salicylate < 3.0 mg/dL; Sodium 144 mMol/L (136-145); Thyroid Stimulating Hormone 3.76 uIU/mL (0.55-4.78); Total Protein 6.4 gm/dL (5.7-8.2); eGFR > 60 See Note
--- NOTE | 2024-12-13 22:42 | EDNOTE_ITS ---
ED Psych RME/HPI General Chief Complaint: Psychiatric Symptoms Stated Complaint: HI Arrival date/time: 12/13/24 21:00 RME / HPI RME / HPI Narrative: This section includes all my notes and documentations, including HPI, PE, and ED course. Dread Mclean MD HPI: 34-year-old male here to be evaluated with homicidal ideation. Requests help in psychiatric unit. He reports thoughts of biting heads off, wanting to hurt and kill people living with him. He reports no thoughts of hurting himself. No hallucinations. Admits to drinking alcohol. No drug usage. No other complaints. ROS: All negative except as documented in HPI. Physical Exam: General: Alert and oriented. Appears intoxicated. Eyes: Conjunctivae and lids clear. EOMI. PERRL. ENT: No nasal congestion. Neck: Supple. Heart: RRR. Lungs: No respiratory distress. Good air movement. No rhonchi, wheezing, rales. Chest: No tenderness. Abdomen: Soft and nontender. Skin: Warm and dry. Neuro: Alert and oriented X 3. Cranial Nerves II-XII grossly intact. No peripheral motor deficits. I reviewed all diagnostic test results. Blood tests and urine tests remarkable for K 3.3 and serum alcohol 272.6. At this point, diagnoses include homicidal ideation and alcohol intoxication. Treatment here included oral KCl and oral Ativan 2 mg. Patient is medically cleared for psychiatric evaluation. At 6 AM , the care of the patient was transferred to Dr. MARROQUIN. Dread Mclean MD Related Data Previous Rx's ?Medication ?Instructions ?Recorded chlordiazepoxide HCl 25 mg capsule 25 mg PO QDAY #3 ca ps 08/08/24 levetiracetam 750 mg tablet 750 mg PO BID #60 tabs 05/03 (Keppra) levetiracetam 500 mg tablet 500 mg PO BID #30 tabs 10/03 (Keppra) levetiracetam 1,000 mg tablet 1,000 mg PO BID #60 tabs 10/20/24 (Keppra) lorazepam 0.5 mg tablet (Ativan) 0.5 mg PO QDAY PRN an xiety #7 tabs 11/09/24 Allergies Allergy/AdvReac Type Severity Reaction Status Date / Time sulfamethoxazole Allergy Intermediate VOMIT Verified 12/13/24 21:01 trimethoprim Allergy Intermediate VOMIT Verified 12/13/24 21:01 Course Quality Measures none Orders Category Date Time Status 1799 [1799 Psychiatric Hold] NOW Care 12/14/24 04:00 Ordered Referral Psych Eval Stat Cons 12/14/24 03:52 Active Acetaminophen Stat Lab 12/13/24 21:54 Completed Alcohol, Blood Medical Stat Lab 12/13/24 21:54 Completed CBC Stat Lab 12/13/24 21:54 Completed CMP [Comprehensive Metabolic Panel] Stat Lab 12/13/24 21:54 Completed Drug Screen,Urine Stat Lab 12/13/24 22:21 Completed Magnesium Stat Lab 12/13/24 21:54 Completed Salicylate Stat Lab 12/13/24 21:54 Completed TSH [Thyroid Stimulating Hormone] Stat Lab 12/13/24 21:54 Completed KCL 10% Liq UDC 15 ML Med 12/13/24 22:41 Discontinued 40 meq PO X1 ONE LORazepam [Ativan] Med 12/13/24 23:04 Discontinued 2 mg PO X1 ONE Vital Signs Vital signs: Vital Signs Temperature 98.2 F 12/13/24 21:24 Pulse Rate 100 12/13/24 21:24 Respiratory Rate 18 12/13/24 21:24 Blood Pressure 131/79 H 12/13/24 21:24 Pulse Oximetry (%) 95 12/13/24 21:24 Oxygen Delivery Method Room Air 12/13/24 21:24 Psych Patient data External records reviewed:: [facility] previous records Clinical information provided by:: patient Social determinants that could affect healthcare access:: alcohol use Patient has the following chronic illnesses:: Alcohol use How is presenting disease/condition affected by chronic disease/condition?: exacerbated by Evaluation data The following diagnostics were reviewed and interpreted by me:: lab results Lab and/or radiology exams considered but not ordered:: None Interpretation Summary: Hypokalemia and alcohol tox occasion Medications / Prescriptions Medications or Prescriptions considered but not ordered:: None Medication administrations:: Medication Administration History Discontinued Medications Lorazepam (Lorazepam 0.5 Mg Tablet) 2 mg PO X1 ONE Stop: 12/13/24 23:05 Last Admin: 12/13/24 23:32 Dose: 2 mg Documented By: AM Potassium Chloride (Potassium Chloride 10% 20 Meq/15 Ml Udc) 40 meq PO X1 ONE Stop: 12/13/24 22:42 Last Admin: 12/13/24 23:00 Dose: 40 meq Documented By: ROJAS Oral KCl and oral Ativan Consultations Consultation(s) initiated? (list below): No Diagnosis Psych Differential Diagnosis: acute psychosis, chronic schizophrenia, suicidal ideation, bipolar disorder, depression, drug-induced psychotic disorder, acute anxiety and other (Homicidal ideation, alcohol intoxication, substance abuse) Most likely diagnosis given after review of the tests above:: Homicidal ideation and alcohol intoxication Admission Indicated Admission indicated?: not indicated Explain why admission is indicated or not indicated:: No psychiatric service here Admission Request Was there a request for admission?: No Disposition Plan Disposition Plan: other (specify) (Care of the patient was transferred Dr. MARROQUIN.) Discharge Plan Prescriptions/Referrals Prescriptions/Med Rec: No Action chlordiazepoxide HCl 25 mg capsule 25 mg PO QDAY Qty: 3 0RF levetiracetam [Keppra] 750 mg tablet 750 mg PO BID Qty: 60 0RF levetiracetam [Keppra] 500 mg tablet 500 mg PO BID Qty: 30 0RF levetiracetam [Keppra] 1,000 mg tablet 1,000 mg PO BID Qty: 60 0RF lorazepam [Ativan] 0.5 mg tablet 0.5 mg PO QDAY PRN (Reason: anxiety) Qty: 7 0RF Referrals: Lesley Flores MD [Primary Care Provider] - In 1 week Problem List Clinical Impression: Homicidal ideation, Alcohol intoxication Patient/Caregiver Discharge Instructions Print Language: Vietnamese
[2024-12-13 22:50] LABS: Amphetamine/Methamp Scrn,U Negative (Negative); Barbiturate Screen,Urine Negative (Negative); Benzodiazepines Screen,Urine Negative (Negative); Benzoylecgonine Screen, Ur Negative (Negative); Fentanyl Screen,Urine Negative (Negative); Opiate Screen,Urine Negative (Negative); THC Screen,Urine Negative (Negative)
[2024-12-13] MEDS: POTASSIUM CHLORIDE 10% 20 MEQ/15 ML UDC 40 MEQ PO (23:00)
[2024-12-13 23:01] VITALS: BP 127/82; PULSE 85; RESP 18; TEMP 36.6; O2SAT 97
[2024-12-13] MEDS: LORazepam 0.5 MG TABLET 2 MG PO (23:32)
[2024-12-14 05:50] VITALS: BP 114/68; PULSE 77; RESP 16; TEMP 36.9; O2SAT 97
--- NOTE | 2024-12-14 06:29 | EDNOTE_ITS ---
Emergency Room Addendum Addendum Narrative: 0600: Care assumed from Dr. Mclean, the previous shift emergency physician. Past medical, surgical, social and family history reviewed. Vitals and home medications reviewed. I will assume the care of the patient at this time, patient on a 1799 hold pending placement. Please refer to the emergency department record for history and examination from initial visit.? The patient was placed in ED observation care at 12/14/2024 at 0600 hours. The jelena grady was placed in ED observation care because of undifferentiated decompensated behavioral health evaluation, no behavioral health bed available. The patients past medical history, social history, and family history were reviewed. The plan of care will include serial examinations. While in ED observation the patient will have access to water, food, and personal hygiene. If the patient takes home medication(s), they will be continued in ED observation. Physical exam by me shows patient under no acute distress at this time. 1020: [facility] provided update of 5150-hold and plan for LPS facility placement. 1100: Patient accepted to [facility]. ETA 1230 hours. 1230: EMS is here to transport the patient to [facility]. ED observation care ended at 12/14/2024 at 1230 hours. Diagnoses: - Homicidal ideation - Alcohol intoxication
[2024-12-14 07:31] VITALS: BP 108/69; PULSE 75; RESP 18; TEMP 36.4; O2SAT 96
--- NOTE | 2024-12-14 07:57 | PC.NURSE ---
GROUP FITNESS ASSISTANT DEPARTMENT HEAD WATCHING PT, CAME TO CHARGE NURSE AND STATED I DON'T KNOW WHAT HAPPENED, BUT PT WAS SHAKING. WENT TO TALK WITH PT AND PT SAID I JUST HAD A SEIZURE. ALERT/ORIENTED AT THIS TIME. WILL INFORM
[2024-12-14 07:58] VITALS: BP 101/59; PULSE 75; RESP 16; TEMP 36.7; O2SAT 97
--- NOTE | 2024-12-14 07:59 | PC.NURSE ---
INFORMED MD ABOUT PT HAVING POSSIBLE SEIZURE AND ORDERS RECEIVED
[2024-12-14] MEDS: LORazepam 0.5 MG TABLET 1 MG PO (08:13)
[2024-12-14] MEDS: levETIRAcetam 250 MG TABLET 1000 MG PO (08:13)
[2024-12-14] MEDS: GABAPENTIN 300 MG CAPSULE PO (08:14)
--- NOTE | 2024-12-14 09:45 | PC.NURSE ---
PT STARTED JERKING MOVEMENTS AND SCREAMING AT THE SAME TIME THAT LASTED FOR 2 SECONDS, I ASKED THE PT WHATS WRONG, AND PT STATED, I HAD A SEIZURE. PT IS A [employer] 15, AND A&OX4. DR. MARROQUIN MADE AWARE, NO NEW ORDERS GIVEN TO THIS NURSE.
[2024-12-14 09:53] VITALS: BP 123/72; PULSE 83; RESP 16; TEMP 36.7; O2SAT 98
--- NOTE | 2024-12-14 10:20 | PC.SS ---
Addendum entered by MIKE Steinberg 12/14/24 11:50: [place] report provided to [place] [employer]. Incident number: [id number]. Original Note: Patient is a 34 year old male who presents to the Emergency Department for a mental health evaluation. ASWKat made [id number] contact with the patient introduced self, role, and reason for contact. Patient appears alert and oriented to self, location, and situation. ASW discussed with the patient the limits of confidentiality.?During this assessment, the patient made appropriate eye contact. Patient was also cooperative and able to engage appropriately. Patient?s behavior appeared ordinary. No signs of delusions or hallucinations observed. Patient noted to be restless. Patient reports living at home with , Becca and her three children. Patient confirmed demographic information. Patient reports receiving SSI income. Patient states he is independent with ADL's. Denies use of DME. Patient identified Becca as his emergency contact. Patient reports he and Becca have not been in relationship for the past 2 years, however continue to be legally . Patient reports he is having homicidal ideations. Patient reports he his having ideations towards a family friend by the name of Gilmer. Patient reports Gilmer gets on his nerves, no specific event reported by the patient. Patient states he walker himself to the emergency department yesterday and unsure if family aware of where he is right now. Patient disclosed if he were to see his family friend, Gilmer he would bite his face . Patient also disclosing homicidal ideations towards others, however no specific identification of a person. Patient states I would try not to hurt them however unable to give more specific information. Patient denied past suicide attempts. Patient denied suicidal ideations, or experiencing auditory or visual hallucinations. Patient reports last month he was placed on a 5150-hold for Danger to Others and was sent to [facility]. Patient states he is connected to the [facility] but does not know what his diagnosis is, he was seen recently by a psychiatrist, Dr. Burr. Patient reports his community case manager, assigned at the clinic is Noah who he recently saw at the end of the month of November. Patient informs he is currently taking the following medication: prozac, kepra and trazadone. Patient reports being complaint with medication intake. Patient denies substance use, however came in yesterday with high alcohol level noted during toxicology report. Additionally, patient's Rock scale screening is noted as high risk. Patient provided verbal consent to contact his , Becca Yarbrough. In speaking with Becca, she reports the patient has been drinking excessive alcohol. Becca states the patient and she has also been dealing with marital issues. Becca reports she and the patient have been out of relationship for the past two years although are currently living together. Becca reports she was to file for divorce today, and she was unaware that the patient was in the emergency department as he has not come home last night. Per Becca, patient has been on previous psychiatric holds in the past for homicidal ideations as well, most recent in November 2024. Becca became tearful during conversation and reports she believes the patient needs more help than she can offer. Patient reports he would not feel safety planning as he continues to have homicidal ideations and reports he is unable to safety plan with Becca due to their current relationship issues. Upon clinical consultation with [facility], Zuleymaadriana Ramsey patient will be placed on a 5150-hold for Danger to Others. Patient's 1798 hold to be credited. ASW provided update of 5150-hold and discharge plan to LPS facility to Dr. Mccray and bed side nurse Doug. Patient was provided with advisement of 5150-hold. Patient is pending LPS Placement at this time.
--- NOTE | 2024-12-14 11:41 | PC.SS ---
Patient accepted to [facility]. Accepting physician Dr. Iverson. Accepting time 1300. ASW arranged transportation via [facility]. ETA 12:30pm. Bed side nurse aware. Patient notified. ASW notified patient's , Becca.
--- NOTE | 2024-12-14 11:55 | PC.NURSE ---
TRIED TO CALL REPORT AT [facility] AND NO ANSWER
--- NOTE | 2024-12-14 12:11 | PC.NURSE ---
CALL [facility] AND GAVE REPORT
[2024-12-14 12:26] VITALS: BP 129/88; PULSE 78; RESP 18; TEMP 36.4; O2SAT 98
[2024-12-14 12:31] VITALS: BP 129/88; PULSE 78; RESP 18; TEMP 36.4; O2SAT 98
== END 2024-12-14 12:37 ==
LOC: SERX 21:25
PROVIDERS: Emergency Provider Emergency Medicine; PCP Internal Medicine
DX: R45.850 Homicidal ideations (principal); F10.129 Alcohol abuse with intoxication, unspecified; Y90.9 Presence of alcohol in blood, level not specified
CPT/HCPCS: 36415; 80053; 80307; 80320; 80329; 83735; 84443; 85025; 96127; 99285; A9270; G0480

== ENCOUNTER 2024-12-20 11:39 | Emergency (ER) | payer MEDICAID, SELFPAY ==
[2024-12-20 11:40] VITALS: BP 170/93; PULSE 112; RESP 18; TEMP 36.5; O2SAT 96; BMI 32.5
--- NOTE | 2024-12-20 11:45 | EDNOTE_ITS ---
<Statement entered by Ruby Mccray MD - 12/20/24 15:10> As co-signing physician, I was present and available for consult prn. I concur with the plan and care as documented by the midlevel provider. ED General RME/HPI General Stated complaint: GROUP HOME CHECK Time Seen by Provider: 12/20/24 11:44 Arrival date/time: 12/20/24 11:39 CC: Medical clearance for altered mental status HPI patient is awake alert slurred speech responding to all questions appropriately alert and oriented x 3 no focal deficits. Related Data Previous Rx's ?Medication ?Instructions ?Recorded chlordiazepoxide HCl 25 mg capsule 25 mg PO QDAY #3 ca ps 08/08/24 levetiracetam 750 mg tablet 750 mg PO BID #60 tabs 05/03 (Keppra) levetiracetam 500 mg tablet 500 mg PO BID #30 tabs 10/03 (Keppra) levetiracetam 1,000 mg tablet 1,000 mg PO BID #60 tabs 10/20/24 (Keppra) lorazepam 0.5 mg tablet (Ativan) 0.5 mg PO QDAY PRN an xiety #7 tabs 11/09/24 Allergies Allergy/AdvReac Type Severity Reaction Status Date / Time sulfamethoxazole Allergy Intermediate VOMIT Verified 12/13/24 21:01 trimethoprim Allergy Intermediate VOMIT Verified 12/13/24 21:01 Review of Systems Review of Systems Narrative Review of Systems: GEN: No fever, no chills, no weight loss EYES: No discharge, no visual changes, no pain HEENT: No ear pain, no congestion, no sore throat PULM: No shortness of breath, no cough, no congestion CV: No chest pain, no dyspnea on exertion, no palpitations GI: No nausea, no vomiting, no diarrhea, no pain, no constipation : No frequency, no urgency, no dysuria MUSC/SKEL: No joint pain, no back pain SKIN: No rash PSYCH: No hallucinations, no depression HEME/LYMPH: No easy bleeding or bruising tendencies NEURO: No weakness, no headache Past Medical History Past Medical History NEUROLOGIC: Positive Seizures; Negative Neurological Disorders CARDIAC: Negative Cardiac Disorders or Congestive Heart Failure RESPIRATORY: Negative Chronic Obstructive Pulmonary Disease (COPD) GASTROINTESTINAL: Negative Gastrointestinal Disorders GENITOURINARY: Negative Genitourinary Disorders or Renal Disease MUSCULOSKELETAL: Negative Musculoskeletal Disorders ENDOCRINE: Negative Endocrine Disorders, Diabetes Mellitus Type 1 or Diabetes Mellitus Type 2 HEMATOLOGIC: Negative Blood Disorders OTHER HISTORY: Positive Hospitalization and Falls; Negative Autoimmune Disease, Blood Transfusions, Blood Transfusion Reaction or Anesthesia Reactions Family History FAMILY HISTORY: Positive Family Respiratory Disorders, Family Cancer and Family Surgery; Negative Family Psychiatric Problems, Family Cardiac Disorders, Family Gastrointestinal Problems or Family Anesthesia Reaction Surgical History SURGICAL: Negative Joint Replacement Social History SMOKING STATUS: Former smoker SECOND HAND EXPOSURE: No ED Exam Narrative Physical exam: [General: Obese appears not in any acute distress Head normocephalic HEENT: Eyes pupils are PERRLA EOMs intact. All other subsystems of HEENT are within acceptable limits Neck is supple nontender Chest equal chest rise nontender to palpation Respiratory: Clear to auscultation no wheezes crackles or rubs CV: Rate rhythm is regular no murmurs rubs or clicks Abdomen is distended secondary to body habitus soft nontender no masses positive bowel sounds all 4 quadrants Back: No CVA tenderness no spinous process tenderness from cervical spine thoracic and lumbar spine Skin: Intact no petechiae rash induration ulceration or crepitus Extremities: Moving all extremity against resistance cap refill less than 2 seconds neurosensory intact. Observed ambulating without complication Neuro: Awake alert oriented x3 Glascow coma 15 no focal deficits] Course Quality Measures none Vital Signs Vital signs: Vital Signs Temperature 97.7 F 12/20/24 11:40 Pulse Rate 112 H 12/20/24 11:40 Respiratory Rate 18 12/20/24 11:40 Blood Pressure 170/93 H 12/20/24 11:40 Pulse Oximetry (%) 96 12/20/24 11:40 Oxygen Delivery Method Room Air 12/20/24 11:40 [facility] Patient data External records reviewed:: [facility] previous records Clinical information provided by:: patient and law enforcement Social determinants that could affect healthcare access:: none Patient has the following chronic illnesses:: Alcoholism How is presenting disease/condition affected by chronic disease/condition?: uneffected by Evaluation data The following diagnostics were reviewed and interpreted by me:: other (specify) (None none) Lab and/or radiology exams considered but not ordered:: None Interpretation Summary: None Medications Medications considered but not ordered:: None Medication administrations:: None Consultations Consultation(s) initiated? (list below): No Diagnosis Differential Diagnosis ED Complaint MDM: Medical clearance for Most likely diagnosis given after review of the tests above:: Medical clearance for chcf Admission Indicated Admission indicated?: not indicated Explain why admission is indicated or not indicated:: Stable Admission Request Was there a request for admission?: No Disposition Plan Disposition Plan: Discharge Discharge Attestation Discharge Attestation: The patient and all family members were given an opportunity to ask questions and understood the discharge instructions. Discharge instructions specifically effects, indications for sooner follow up or return to the emergency department, and the expected course of current diagnosis. Patient condition: Stable Medical Decision Making Differential Diagnosis Differential Diagnosis: Medical clearance for Discharge Plan Plan Patient Disposition: HOME (Self Care) Patient condition on transfer: Stable Prescriptions/Referrals Prescriptions/Med Rec: No Action chlordiazepoxide HCl 25 mg capsule 25 mg PO QDAY Qty: 3 0RF levetiracetam [Keppra] 750 mg tablet 750 mg PO BID Qty: 60 0RF levetiracetam [Keppra] 500 mg tablet 500 mg PO BID Qty: 30 0RF levetiracetam [Keppra] 1,000 mg tablet 1,000 mg PO BID Qty: 60 0RF lorazepam [Ativan] 0.5 mg tablet 0.5 mg PO QDAY PRN (Reason: anxiety) Qty: 7 0RF Problem List Clinical Impression: Medical clearance for incarceration Patient/Caregiver Discharge Instructions Print Language: Frisian Stand Alone Forms: Tara Award Info., Patient Portal Info Letter PA/SUNNY Supervising Physician PA/SUNNY Supervising Physician: Trung Stroud ENP
== END 2024-12-20 12:27 ==
LOC: SERX 11:50
PROVIDERS: Emergency Provider Emergency Medicine; PCP Family Medicine
DX: Z02.89 Encounter for other administrative examinations (principal); Z65.3 Problems related to other legal circumstances; F10.20 Alcohol dependence, uncomplicated; Z87.891 Personal history of nicotine dependence; E66.9 Obesity, unspecified; Z68.32 Body mass index [BMI] 32.0-32.9, adult; Y90.6 Blood alcohol level of 120-199 mg/100 ml
CPT/HCPCS: 99281

== ENCOUNTER 2024-12-20 22:29 | Emergency (ER) | payer MEDICAID, SELFPAY ==
[2024-12-20 22:31] VITALS: BMI 31.0
[2024-12-20 22:46] VITALS: BP 123/75; PULSE 116; RESP 20; TEMP 36.6; O2SAT 95
--- NOTE | 2024-12-20 22:50 | XR_ITS ---
Examination: CT right , without contrast. 2-D sagittal reconstructions. 2-D coronal reconstructions. 3-D reconstructions. Date and time of exam:December 20, 2024 2324 hrs. Indications: Seizure today with injury to the back, back pain CTDI: vol (mGy):26.5 DLP: (mGycm):947 Technique: Multiple 1.25 mm axial sections of the thoracic spine without intravenous contrast have been obtained. 2-D sagittal and coronal reconstructions have been obtained. 3-D reconstructions have been obtained. Low dose protocols were performed. One or more of the following dose reduction techniques were used; automated exposure control, adjustment of the mA and/or KV according to patient size, use of iterative reconstruction technique. Findings: Mild osteopenia Orthopedic hardware centered about chronic compressions T3 and T4 Adequate alignment No acute thoracic fracture Impression: No acute thoracic fracture Alignment is stable compared with November 16, 2024
--- NOTE | 2024-12-20 22:50 | XR_ITS ---
Examination: CT cervical spine without contrast 2-D sagittal reconstructions 2-D coronal reconstructions 3-D reconstructions. Exam date and time:December 20, 2024 11:18 PM Indications: Seizure today with injury to the neck, neck pain CTDI:vol (mGy) 9.58 DLP: (mGycm) 201 Technique: Multiple 2 mm axial sections of the cervical spine have been obtained. The coronal and sagittal reconstructions have been obtained. 3-D reconstructions have been obtained. Low dose protocols were performed. One or more of the following dose reduction techniques were used; automated exposure control, adjustment of the mA and/or KV according to patient size, use of iterative reconstruction technique. Findings: Axial sections demonstrate intact base of the skull. C1 exhibit satisfactory relationship to the odontoid. No acute cervical vertebral body fracture seen. Alignment posterior spinous processes satisfactory. Impression: No acute cervical fracture.
--- NOTE | 2024-12-20 22:50 | XR_ITS ---
Examination: CT brain head without contrast. 2-D sagittal coronal reconstructions Date and time of exam:December 20, 2024 11:18 PM Indications: Seizure today with injury to the head, head pain CTDI: vol (mGy):52.3 DLP: (mGycm):1037 Technique: Multiple CT axial sections of the brain have been obtained, 5 mm slice thickness. Contrast has not been administered. 2-D sagittal, coronal reconstructions have been obtained Low dose protocols were performed. One or more of the following dose reduction techniques were used; automated exposure control, adjustment of the mA and/or KV according to patient size, use of iterative reconstruction technique. Findings: No significant ventricular enlargement. Intra-axial or extra-axial hemorrhage density is not seen. No mass effect or midline shift Basal cisterns are not remarkable. Fourth ventricle is midline. Cranial vault intact. Chronic maxillary sinusitis Impression: Negative for acute hemorrhage, mass effect or midline shift
--- NOTE | 2024-12-20 22:50 | EKG_ITS ---
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
--- NOTE | 2024-12-20 22:51 | PD.EDRME ---
Rapid Medical Screening Exam RME Arrival date/time: 12/20/24 22:29 34 yo m present to ED seizure, head injury I have greeted and performed a focused initial assessment of this patient. A comprehensive ED assessment and evaluation of the patient, analysis of all test results, and completion of the medical decision making process will be conducted by additional ED providers. Chief Complaint: Head Injury Time Seen by Provider: 12/20/24 22:32 Vital signs: Vital Signs Temperature 97.9 F 12/20/24 22:46 Pulse Rate 116 H 12/20/24 22:46 Respiratory Rate 20 12/20/24 22:46 Blood Pressure 123/75 12/20/24 22:46 Pulse Oximetry (%) 95 12/20/24 22:46 Oxygen Delivery Method Room Air 12/20/24 22:46
--- NOTE | 2024-12-20 22:52 | XR_ITS ---
Examination: Foot, right, 3 views Technique: AP, oblique, lateral views foot, 3 views Date and time of exam: December 20, 2024 11:05 PM Indications: Injury with today, foot pain. Findings: No acute fracture No dislocation No foreign body Impression: No acute fracture
[2024-12-20] MEDS: ACETAMINOPHEN 325 MG TABLET 650 MG PO (23:10)
[2024-12-20 23:36] LABS: Basophils % (Auto) 0 % (0-2.5); Eosinophils # (Auto) 0.1 Thou/mm3 (0.0-0.5); Eosinophils % (Auto) 1 % (0-10); Hematocrit 41.8 % (41.0-53.0); Hemoglobin 14.3 g/dL (13.5-16.0); Immature Granulocytes % (Auto) 0 % (0-0); Immature Granulocytes Auto 0.01 Thou/mm3 (0.00-0.00); Lymphocytes # (Auto) 1.9 Thou/mm3 (1.0-4.8); Lymphocytes % (Auto) 28 % (10-50); Mean Corpuscular HGB Conc 34.2 g/dl (31.0-37.0); Mean Corpuscular Volume 85 fL (80-100); Monocytes # (Auto) 0.5 Thou/mm3 (0.0-0.8); Monocytes % (Auto) 8 % (0-12); Neutrophils # (Auto) 4.1 Thou/mm3 (1.8-7.7); Neutrophils % (Auto) 62 % (37-80); Nucleated Red Blood Cell % 0 /100 WBC (0); Platelet Count 163 Thou/mm3 (140-440); RDW Standard Deviation 44.9 fL (35.1-43.9); Red Blood Count 4.93 Miln/mm3 (4.50-5.90); White Blood Count 6.6 Thou/mm3 (3.8-10.6)
[2024-12-20 23:41] LABS: Prothrombin Time 11.4 Seconds (9.0-12.2)
--- NOTE | 2024-12-20 23:41 | PRELIM_ITS ---
Radiographs of the right foot (3 views). December 20, 2024 at 2305 hours Clinical History: Foot injury. Comparison: None. Findings: There is no evidence of fracture or dislocation. The visualized bones are of normal configuration and density. The visualized joints are normal in configuration and alignment. The periarticular soft tissues are normal. Impression: No evidence of fracture or dislocation. Report Electronically Signed By: Suresh Borges 12/20/2024 11:41:39 PM [EST]
[2024-12-20 23:48] LABS: Alanine Aminotransferase 31 U/L (10-49); Albumin, Serum 4.8 gm/dL (3.5-5.0); Alkaline Phosphatase 91 U/L (46-116); Anion Gap 12 (7-16); Aspartate Amino Transferase 32 U/L (0-34); BUN/Creatinine Ratio 9 Ratio (12-20); Bilirubin,Total 0.6 mg/dL (0.3-1.2); Blood Urea Nitrogen 9 mg/dL (9-23); Calcium 9.4 mg/dL (8.3-10.6); Calcium (Corrected) 9.4 mg/dL (8.5-10.1); Carbon Dioxide 25.5 mMol/L (20.0-31.0); Chloride 108 mMol/L (98-107); Estimated Creatinine Clearance 120.8 mL/min (>60); Globulin 2.4 gm/dL (2.3-3.5); Glucose 127 mg/dL (74-106); Magnesium 2.1 mg/dL (1.6-2.6); Osmolality,Calculated 289 (275-295); Potassium 3.5 mMol/L (3.4-5.1); Sodium 145 mMol/L (136-145); Total Protein 7.2 gm/dL (5.7-8.2); Troponin I < 0.020 ng/mL (0.0-0.045); eGFR > 60 See Note
--- NOTE | 2024-12-21 00:16 | PRELIM_ITS ---
CT scan of the head without intravenous contrast (axial sections with sagittal and coronal reformats) December 20, 2024 at 2318 hours Clinical History: Seizure, head injury. Comparison: CT of November 16, 2024. Findings: No evidence of intracranial hemorrhage, mass effect or midline shift. The ventricles and CSF spaces are unremarkable. The calvarium is intact. The mastoid air cells are clear. Mild bilateral mucosal thickening in the maxillary sinuses. Impression: No evidence of intracranial hemorrhage, midline shift or calvarial fracture. Mild bilateral maxillary sinusitis. Report Electronically Signed By: Suresh Borges 12/21/2024 12:16:02 AM [EST]
--- NOTE | 2024-12-21 00:17 | PRELIM_ITS ---
CT scan of the cervical spine without intravenous contrast (axial sections with sagittal and coronal reformats) December 20, 2024 at 2318 hours Clinical History: Neck pain, seizure/head injury. Comparison: None available at the time of this report. Findings: There is no fracture or subluxation. The prevertebral soft tissues are unremarkable. 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 Partially imaged thoracic spine hardware. Loss of the physiologic cervical lordosis. Impression: No evidence of fracture or subluxation. Report Electronically Signed By: Suresh Borges 12/21/2024 12:16:36 AM [EST]
--- NOTE | 2024-12-21 00:25 | PRELIM_ITS ---
CT scan of the thoracic spine without intravenous contrast (axial sections with sagittal, coronal and 3D reformats) December 20, 2024 2322 hours Clinical History: Back surgery in past, seizure, neck/back pain Comparison: None available at the time of this report. Findings: Posterior fusion hardware between T2, T3, T4, and T5. No evidence of hardware loosening or failure. Chronic wedging of T3 and T4. There is no fracture or subluxation. The thoracic vertebrae are otherwise normally aligned. The intervertebral disc spaces are maintained. There is no pre or paravertebral soft tissue abnormality. Impression: No fracture or subluxation. Report Electronically Signed By: Suresh Borges 12/21/2024 12:24:16 AM [EST]
[2024-12-21 00:46] LABS: Amphetamine/Methamp Scrn,U Negative (Negative); Barbiturate Screen,Urine Negative (Negative); Benzodiazepines Screen,Urine Negative (Negative); Benzoylecgonine Screen, Ur Negative (Negative); Fentanyl Screen,Urine Negative (Negative); Opiate Screen,Urine Negative (Negative); THC Screen,Urine Positive (Negative)
[2024-12-21 01:00] VITALS: BP 104/75; PULSE 84; RESP 16; TEMP 36.6; O2SAT 95
--- NOTE | 2024-12-21 02:12 | PD.EDHEAD ---
ED Head Injury RME/HPI General Chief complaint: Head Injury Stated complaint: seizure and head injury Time Seen by Provider: 12/20/24 22:32 Arrival date/time: 12/20/24 22:29 Limitations: no limitations RME / HPI RME / HPI Narrative: 34-year-old male with possible anxiety attack. The patient came in with his girlfriend who states that he started having anxiety while he was awake. He was sitting in a chair and saying this is what happens when I get anxious . While in the emergency department the patient was sitting in chair and having another episode where he was awake and saying he was feeling anxious. is at the bedside and she states that he did not fall and hit his head. Associated symptoms: other (None) Related Data Previous Rx's ?Medication ?Instructions ?Recorded chlordiazepoxide HCl 25 mg capsule 25 mg PO QDAY #3 caps 08/08/24 levetiracetam 750 mg tablet 750 mg PO BID #60 tabs 09/16/24 (Keppra) levetiracetam 500 mg tablet 500 mg PO BID #30 tabs 10/10/24 (Keppra) levetiracetam 1,000 mg tablet 1,000 mg PO BID #60 tabs 10/20/24 (Keppra) lorazepam 0.5 mg tablet (Ativan) 0.5 mg PO QDAY PRN anxiety #7 tabs 11/09/24 Allergies Allergy/AdvReac Type Severity Reaction Status Date / Time sulfamethoxazole Allergy Intermediate VOMIT Verified 12/13/24 21:01 trimethoprim Allergy Intermediate VOMIT Verified 12/13/24 21:01 Review of Systems Review of Systems Systems Reviewed: All systems reviewed, normal except as documented Past Medical History Past Medical History NEUROLOGIC: Positive Neurological Disorders and Seizures CARDIAC: Negative Cardiac Disorders or Congestive Heart Failure RESPIRATORY: Negative Chronic Obstructive Pulmonary Disease (COPD) GASTROINTESTINAL: Negative Gastrointestinal Disorders GENITOURINARY: Negative Genitourinary Disorders or Renal Disease MUSCULOSKELETAL: Negative Musculoskeletal Disorders ENDOCRINE: Negative Endocrine Disorders, Diabetes Mellitus Type 1 or Diabetes Mellitus Type 2 HEMATOLOGIC: Negative Blood Disorders OTHER HISTORY: Positive Hospitalization and Falls; Negative Autoimmune Disease, Blood Transfusions, Blood Transfusion Reaction or Anesthesia Reactions Family History FAMILY HISTORY: Positive Family Respiratory Disorders, Family Cancer and Family Surgery; Negative Family Psychiatric Problems, Family Cardiac Disorders, Family Gastrointestinal Problems or Family Anesthesia Reaction Surgical History SURGICAL: Negative Joint Replacement Social History SMOKING STATUS: Former smoker SECOND HAND EXPOSURE: No ED Exam General Limitations: Present no limitations General appearance: Present alert and in no apparent distress Head Head exam: Present atraumatic Eye Eye exam: Present normal appearance, PERRL and EOMI ENT ENT exam: Present normal exam, normal oropharynx and mucous membranes moist Neck Neck exam: Present normal inspection, full ROM and trachea midline Chest Chest inspection: Present normal inspection and symmetric chest wall rise Respiratory Respiratory exam: Present normal lung sounds bilaterally Cardiovascular Cardiovascular exam: Present regular rate, normal rhythm and normal heart sounds Abdominal Exam Abdominal exam: Present soft and normal bowel sounds Extremities Exam Extremities exam: Present normal inspection and full ROM Back Exam Back exam: Present normal inspection and full ROM Neurological Exam Neurological exam: Present alert, oriented X3 and CN II-XII intact Psychiatric Psychiatric exam: Present normal affect and normal mood Skin Skin exam: Present warm, dry, intact and normal color Course Quality Measures none Orders Category Date Time Status Blood glucose [Bedside Blood Glucose] NOW Care 12/20/24 22:52 Active EKG (ED ONLY) *Do not use* NOW Care 12/20/24 22:51 Completed Seizure precautions ONCE Care 12/20/24 22:[address] cervical spine wo con Stat Exams 12/20/24 22:[address] head/brain wo con Stat Exams 12/20/24 22:[address] thoracic spine wo con Stat Exams 12/20/24 22:50 Taken EKG (ED Only) Stat Exams 12/20/24 22:50 Draft XR foot comp RT min 3V Stat Exams 12/20/24 22:52 Taken Alcohol, Blood Medical Stat Lab 12/20/24 23:02 Completed CBC Stat Lab 12/20/24 23:02 Completed CMP [Comprehensive Metabolic Panel] Stat Lab 12/20/24 23:02 Completed Drug Screen,Urine Stat Lab 12/21/24 00:15 Completed INR [Prothrombin Time with INR] Stat Lab 12/20/24 23:02 Completed Levetiracetam (Keppra)* Stat Lab 12/20/24 23:02 Received Mag [Magnesium] Stat Lab 12/20/24 23:02 Completed Troponin I Stat Lab 12/20/24 23:02 Completed Acetaminophen Tab [Tylenol Tab] Med 12/20/24 22:53 Discontinued 650 mg PO X1 ONE Vital Signs Vital signs: Vital Signs Temperature 97.9 F 12/20/24 22:46 Pulse Rate 116 H 12/20/24 22:46 Respiratory Rate 20 12/20/24 22:46 Blood Pressure 123/75 12/20/24 22:46 Pulse Oximetry (%) 95 12/20/24 22:46 Oxygen Delivery Method Room Air 12/20/24 22:46 Head Injury MDM Narrative MDM Narrative:: 0234: The patient is able to ambulate in the room. Repeat exam normal exam is obtained. The patient has normal finger-nose and otherwise motor is 5 out of 5 upper extremity lower extremity. Normal sensation of soft touch. Negative Romberg. The patient again admitted that he was not having an anxiety attack. Patient data External records reviewed:: [facility] previous records (Patient has been seen previously for similar episodes last month for alcohol abuse.) Clinical information provided by:: patient and family Social determinants that could affect healthcare access:: alcohol use Patient has the following chronic illnesses:: Seizure disorder, history of alcohol, anxiety How is presenting disease/condition affected by chronic disease/condition?: exacerbated by Evaluation data The following diagnostics were reviewed and interpreted by me:: lab results, radiology exam(s) and EKG tracing(s) Lab and/or radiology exams considered but not ordered:: None Interpretation Summary: Patient has a white count of 6.6. Hemoglobin 14/41. Platelets are 163. Potassium is normal at 3.5. Glucose is 127. Otherwise magnesium 2.1. Liver function tests are normal. Patient is positive for marijuana and alcohol level is [address] head neck thoracic spine do not show acute injury. x-ray is negative for fracture or dislocation. Medications / Prescriptions Medications or Prescriptions considered but not ordered:: None Medication administrations:: Medication Administration History Discontinued Medications Acetaminophen (Acetaminophen 325 Mg Tablet) 650 mg PO X1 ONE Stop: 12/20/24 22:54 Last Admin: 12/20/24 23:10 Dose: 650 mg Documented By: KF As above Consultations Consultation(s) initiated? (list below): No Diagnosis Differential diagnosis head injury: concussion without loss of consciousness, closed head injury and other (Bleed,) Most likely diagnosis given after review of the tests above:: History of anxiety disorder, alcohol use, marijuana use. Admission Indicated Admission indicated?: not indicated Explain why admission is indicated or not indicated:: Patient able to ambulate. No acute abnormality on CT scan. Admission Request Was there a request for admission?: No Disposition Plan Disposition Plan: Discharge Discharge Attestation Discharge Attestation: The patient and all family members were given an opportunity to ask questions and understood the discharge instructions. Discharge instructions specifically effects, indications for sooner follow up or return to the emergency department, and the expected course of current diagnosis. Patient condition: Stable Discharge Plan Plan Patient Disposition: HOME (Self Care) Prescriptions/Referrals Prescriptions/Med Rec: No Action chlordiazepoxide HCl 25 mg capsule 25 mg PO QDAY Qty: 3 0RF levetiracetam [Keppra] 750 mg tablet 750 mg PO BID Qty: 60 0RF levetiracetam [Keppra] 500 mg tablet 500 mg PO BID Qty: 30 0RF levetiracetam [Keppra] 1,000 mg tablet 1,000 mg PO BID Qty: 60 0RF lorazepam [Ativan] 0.5 mg tablet 0.5 mg PO QDAY PRN (Reason: anxiety) Qty: 7 0RF Referrals: Stephan Perkins MD [Primary Care Provider] - In 1 week Problem List Clinical Impression: Alcohol use, Anxiety disorder, Cannabis use disorder Patient/Caregiver Discharge Instructions Education Materials: Treating Anxiety Disorders ..., ED Anxiety Reaction Additional Instructions: Even though you have been discharged from the Emergency Department, there are several things that you should do to ensure that you receive proper care: 1. DO READ your discharge instructions as these contain important information concerning your medical care. 2. If medication has been prescribed for your condition, fill the prescription as soon as possible and follow the directions on the medication. 3. RETURN AT ONCE TO THE EMERGENCY DEPARTMENT if you have any problems or concerns. These include but are not limited to fever, worsening pain(belly, chest, head, etc?), worsening shortness of breath, uncontrollable bleeding, inability to tolerate food and water, or any condition that makes you question your well-being. Also, if your symptoms do not improve in the next 12-24 hours, return to the ER or seek medical care immediately. 4. Be sure to follow up with your regular physician or specialist as instructed at discharge as this is the best way to ensure that you receive the very best of care. If you do not have a primary care physician, please contact a physician group and make an appointment. 5. Please avoid drinking alcohol and doing marijuana since this may make your anxiety worse. We would like to thank you for coming today and our hope is that we served you and your family well during your stay General Adult Discharge Instructions(Arabic) Natalia segundo sido dado de eliud del Departamento de Emergencias sin embargo hay algunas cosas que debe hacer para asegurarse de que natalia continue recibiendo el cuidado adecuado. Por favor zane las siguientes instrucciones con atenci?n: ? 1. Si es que le dieron alguna prescripci?n (medicamento), asegurese de ir a la farmacia de hernandez preferencia, llenar el medicamento y tomarlo conforme a las instrucciones. ? 2. Leas las instrucciones de eliud con mucho cuidado dado que contienen informaci?n importante para hernandez camila y cuidado. 3. REGRESE AL DEPARTAMENTO DE EMERGENCIA SI tiene alg?n tipo de problema o preocupaci?n. Ryegate incluye isadora no esta limitado a fiebre, mucho dolor abdominal, dolor de pecho, mucho dolor de anthony, falta de aire, sangrado incontrolable, nauseas o vomitos incontrolables, inhabilidad de tolerar alimentos, o cualquier otro tipo de condici?n que le colleen cuestionar hernandez camila. 4. Asegurese de seguir con hernandez medico primario (tambien llamado medico de gabe) o con el medico especialista que le indicaron al momento del eliud en 3 a 5 navarro dado que esta es la mejor manera de asegurar que steven recibiendo el mejor cuidado medico. ? 5. Si es que tiene un telefono inteligente (smartphone) revise la pagina web o aplicaci?n GoodRx antes de pagar por evan prescripciones (medicinas) dado que asi podr?a encontrar un cup?n para que evan medicinas don menos costosas. El servicio es gratuito. ? Le agradecemos hernandez visita el mingo de hoy y esperamos que hernandez camila mejore. Print Language: Azeri Stand Alone Forms: Tara Award Info., Patient Portal Info Letter
[2024-12-21 02:40] VITALS: BP 108/53; PULSE 81; RESP 16; TEMP 36.6; O2SAT 98
[2024-12-24 07:26] LABS: Levetiracetam (Keppra)* 37.4 mcg/mL (6.0-46.0)
== END 2024-12-21 02:40 | disposition home or self-care (01) ==
PROVIDERS: Physician Assistant; Emergency Provider Emergency Medicine; PCP Family Medicine
DX: F10.10 Alcohol abuse, uncomplicated (principal); Y90.6 Blood alcohol level of 120-199 mg/100 ml; F41.9 Anxiety disorder, unspecified; F12.10 Cannabis abuse, uncomplicated; G40.909 Epilepsy, unspecified, not intractable, without status epilepticus; Z87.891 Personal history of nicotine dependence
CPT/HCPCS: 36415; 70450; 72125; 72128; 73630; 80053; 80177; 80307; 80320; 83735; 84484; 85025; 85610; 93005; 99284; A9270; G0480

== ENCOUNTER 2024-12-24 13:47 | Emergency (ER) | payer MEDICAID, SELFPAY ==
[2024-12-24 13:52] VITALS: BP 129/85; PULSE 86; RESP 17; TEMP 36.5; O2SAT 93
--- NOTE | 2024-12-24 14:13 | PD.EDALCOH ---
ED Alcohol RME/HPI General Chief Complaint: Alcohol Stated Complaint: ALCOHOL INTOXICATION Time Seen by Provider: 12/24/24 13:57 Arrival date/time: 12/24/24 13:47 Limitations: no limitations RME / HPI RME / HPI narrative: 34 year old male with history of alcohol abuse presents to the ED BIBA for alcohol intoxication. 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 State patient began to stumble into traffic and brought here for further evaluation. No trauma reported. Prehospital BS 126. Related Data Previous Rx's ?Medication ?Instructions ?Recorded chlordiazepoxide HCl 25 mg capsule 25 mg PO QDAY #3 caps 08/08/24 levetiracetam 750 mg tablet 750 mg PO BID #60 tabs 09/16/24 (Keppra) levetiracetam 500 mg tablet 500 mg PO BID #30 tabs 10/10/24 (Keppra) levetiracetam 1,000 mg tablet 1,000 mg PO BID #60 tabs 10/20/24 (Keppra) lorazepam 0.5 mg tablet (Ativan) 0.5 mg PO QDAY PRN anxiety #7 tabs 11/09/24 Allergies Allergy/AdvReac Type Severity Reaction Status Date / Time sulfamethoxazole Allergy Intermediate VOMIT Verified 12/13/24 21:01 trimethoprim Allergy Intermediate VOMIT Verified 12/13/24 21:01 Review of Systems Review of Systems Systems Reviewed: All systems reviewed, normal except as documented Past Medical History Past Medical History NEUROLOGIC: Positive Neurological Disorders and Seizures OTHER HISTORY: Positive Hospitalization and Falls Family History FAMILY HISTORY: Positive Family Respiratory Disorders, Family Cancer and Family Surgery Surgical History SURGICAL: Negative Joint Replacement Social History SMOKING STATUS: Current some day smoker SECOND HAND EXPOSURE: No ED Exam General Limitations: Present no limitations General appearance: Present alert, in no apparent distress and appears intoxicated (smells of alcohol ) Head Head exam: Present atraumatic and normocephalic Eye Eye exam: Present normal appearance, PERRL and EOMI ENT ENT exam: Present normal exam, normal oropharynx and mucous membranes moist Neck Neck exam: Present normal inspection, full ROM and trachea midline Chest Chest inspection: Present normal inspection and symmetric chest wall rise Respiratory Respiratory exam: Present normal lung sounds bilaterally Cardiovascular Cardiovascular exam: Present regular rate, normal rhythm and normal heart sounds Abdominal Exam Abdominal exam: Present soft and normal bowel sounds Extremities Exam Extremities exam: Present normal inspection and full ROM Back Exam Back exam: Present normal inspection and full ROM Neurological Exam Neurological exam: Present alert, oriented X3 and CN II-XII intact Psychiatric Psychiatric exam: Present normal affect and normal mood Skin Skin exam: Present warm, dry, intact and normal color Course Course Course Narrative: 1705: Patient eloped the ED, walked out through the ambulance bay Quality Measures none Vital Signs Vital signs: Vital Signs Temperature 97.7 F 12/24/24 13:52 Pulse Rate 86 12/24/24 13:52 Respiratory Rate 17 12/24/24 13:52 Blood Pressure 129/85 H 12/24/24 13:52 Pulse Oximetry (%) 93 L 12/24/24 13:52 Oxygen Delivery Method Room Air 12/24/24 13:52 Pulse ox is 93% on room air which is adequate. Discharge Plan Plan Patient Disposition: Elopement Prescriptions/Referrals Prescriptions/Med Rec: No Action chlordiazepoxide HCl 25 mg capsule 25 mg PO QDAY Qty: 3 0RF levetiracetam [Keppra] 750 mg tablet 750 mg PO BID Qty: 60 0RF levetiracetam [Keppra] 500 mg tablet 500 mg PO BID Qty: 30 0RF levetiracetam [Keppra] 1,000 mg tablet 1,000 mg PO BID Qty: 60 0RF lorazepam [Ativan] 0.5 mg tablet 0.5 mg PO QDAY PRN (Reason: anxiety) Qty: 7 0RF Referrals: Stephan Perkins MD [Primary Care Provider] - In 1 week Problem List Clinical Impression: Alcohol intoxication Patient/Caregiver Discharge Instructions Print Language: Georgian Alcohol MDM Narrative MDM Narrative: Rosalee Borja am scribing for and in the presence of Dr. Holder. Patient data External records reviewed:: [facility] previous records (I reviewed ED visit on 12/21/2024) Clinical information provided by:: patient and EMS Social determinants that could affect healthcare access:: alcohol use Patient has the following chronic illnesses:: Alcohol abuse How is presenting disease/condition affected by chronic disease/condition?: exacerbated by Evaluation data The following diagnostics were reviewed and interpreted by me:: other (specify) (No diagnostics ordered ) Lab and/or radiology exams considered but not ordered:: None Interpretation Summary: N/A Medications / Prescriptions Medications or Prescriptions considered but not ordered:: None Medication administrations:: None Consultations Consultation(s) initiated? (list below): No Diagnosis Differential diagnosis alcohol: alcohol withdrawal delirium, alcohol intoxication and alcohol withdrawal syndrome Most likely diagnosis given after review of the tests above:: Alcohol intoxication Admission Indicated Admission indicated?: not indicated Admission Request Was there a request for admission?: No Disposition Plan Disposition Plan: other (specify) (Patient eloped )
[2024-12-24 14:17] VITALS: PULSE 92; RESP 16; O2SAT 97; BMI 33.2
[2024-12-24 15:50] VITALS: BP 108/67; PULSE 67; RESP 18; TEMP 36.7; O2SAT 96
--- NOTE | 2024-12-24 16:30 | PC.NURSE ---
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
--- NOTE | 2024-12-24 17:08 | PC.NURSE ---
PT GOT OUT OF BED AND WALK OUT THE BACK DOOR OF THE ER. I ASKED THE PT WHERE HE IS GOING AND HE STATED, IM GOING HOME. PT WAS ENCOURAGE TO STAY, BUT HE REFUSE AND KEPT WALKING OUT. DR. MONTERO MADE AWARE.
== END 2024-12-24 17:07 | disposition left against medical advice (07) ==
LOC: SERX 14:54
PROVIDERS: Emergency Provider Emergency Medicine; PCP Family Medicine
DX: F10.129 Alcohol abuse with intoxication, unspecified (principal); Z53.29 Procedure and treatment not carried out because of patient's decision for other reasons
CPT/HCPCS: 99281

== ENCOUNTER 2024-12-25 12:09 | Emergency (ER) | payer MEDICAID, SELFPAY ==
[2024-12-25 12:10] VITALS: PULSE 86; RESP 18; O2SAT 98; BMI 31.0
== END 2024-12-25 12:51 | disposition left against medical advice (07) ==
LOC: SERX 13:07
PROVIDERS: Emergency Provider Emergency Medicine
DX: Z53.21 Procedure and treatment not carried out due to patient leaving prior to being seen by health care provider (principal)

== ENCOUNTER 2024-12-25 19:55 | Emergency (ER) | payer MEDICAID, SELFPAY ==
[2024-12-25 19:59] VITALS: BP 140/85; PULSE 98; RESP 17; TEMP 36.8; O2SAT 99
--- NOTE | 2024-12-25 20:11 | PC.NURSE ---
PER DR CARBONE PT OK TO GO TO THE LOBBY AT THIS TIME.
[2024-12-25 20:15] VITALS: PULSE 98; RESP 16; O2SAT 97
[2024-12-25 20:18] VITALS: BMI 31.0
--- NOTE | 2024-12-25 20:27 | PD.EDADULT ---
ED General RME/HPI General Chief complaint: Altered Mental Status Stated complaint: AMS Time Seen by Provider: 12/25/24 20:25 Arrival date/time: 12/25/24 19:55 Related Data Previous Rx's ?Medication ?Instructions ?Recorded chlordiazepoxide HCl 25 mg capsule 25 mg PO QDAY #3 caps 08/08/24 levetiracetam 750 mg tablet 750 mg PO BID #60 tabs 09/16/24 (Keppra) levetiracetam 500 mg tablet 500 mg PO BID #30 tabs 10/10/24 (Keppra) levetiracetam 1,000 mg tablet 1,000 mg PO BID #60 tabs 10/20/24 (Keppra) lorazepam 0.5 mg tablet (Ativan) 0.5 mg PO QDAY PRN anxiety #7 tabs 11/09/24 Allergies Allergy/AdvReac Type Severity Reaction Status Date / Time sulfamethoxazole Allergy Intermediate VOMIT Verified 12/25/24 12:13 trimethoprim Allergy Intermediate VOMIT Verified 12/25/24 12:13 Course Vital Signs Vital signs: Vital Signs Temperature 98.3 F 12/25/24 19:59 Pulse Rate 98 12/25/24 19:59 Respiratory Rate 17 12/25/24 19:59 Blood Pressure 140/85 H 12/25/24 19:59 Pulse Oximetry (%) 99 12/25/24 19:59 Oxygen Delivery Method Nasal Cannula 12/25/24 19:59 Oxygen Flow Rate 4 12/25/24 19:59 Discharge Plan Prescriptions/Referrals Prescriptions/Med Rec: No Action chlordiazepoxide HCl 25 mg capsule 25 mg PO QDAY Qty: 3 0RF levetiracetam [Keppra] 750 mg tablet 750 mg PO BID Qty: 60 0RF levetiracetam [Keppra] 500 mg tablet 500 mg PO BID Qty: 30 0RF levetiracetam [Keppra] 1,000 mg tablet 1,000 mg PO BID Qty: 60 0RF lorazepam [Ativan] 0.5 mg tablet 0.5 mg PO QDAY PRN (Reason: anxiety) Qty: 7 0RF Patient/Caregiver Discharge Instructions Print Language: Frisian
[2024-12-25 20:54] LABS: Basophils % (Auto) 1 % (0-2.5); Eosinophils # (Auto) 0.1 Thou/mm3 (0.0-0.5); Eosinophils % (Auto) 1 % (0-10); Hematocrit 42.9 % (41.0-53.0); Hemoglobin 14.9 g/dL (13.5-16.0); Immature Granulocytes % (Auto) 0 % (0-0); Immature Granulocytes Auto 0.01 Thou/mm3 (0.00-0.00); Lymphocytes # (Auto) 2.4 Thou/mm3 (1.0-4.8); Lymphocytes % (Auto) 44 % (10-50); Mean Corpuscular HGB Conc 34.7 g/dl (31.0-37.0); Mean Corpuscular Hemoglobin 28.6 pg (25.0-35.0); Mean Corpuscular Volume 82 fL (80-100); Monocytes # (Auto) 0.3 Thou/mm3 (0.0-0.8); Monocytes % (Auto) 5 % (0-12); Neutrophils # (Auto) 2.7 Thou/mm3 (1.8-7.7); Neutrophils % (Auto) 49 % (37-80); Nucleated Red Blood Cell % 0 /100 WBC (0); Platelet Count 146 Thou/mm3 (140-440); RDW Standard Deviation 41.1 fL (35.1-43.9); Red Blood Count 5.21 Miln/mm3 (4.50-5.90); White Blood Count 5.4 Thou/mm3 (3.8-10.6)
[2024-12-25 21:15] LABS: Partial Thromboplastin Time 25.1 Seconds (22.0-36.0); Prothrombin Time 11.3 Seconds (9.0-12.2)
[2024-12-25 21:40] LABS: Anion Gap 10 (7-16); BUN/Creatinine Ratio 6 Ratio (12-20); Blood Urea Nitrogen 7 mg/dL (9-23); Carbon Dioxide 26.7 mMol/L (20.0-31.0); Chloride 110 mMol/L (98-107); Creatinine (Component) 1.1 mg/dL (0.6-1.3); Estimated Creatinine Clearance 109.8 mL/min (>60); Glucose 96 mg/dL (74-106); Potassium 3.7 mMol/L (3.4-5.1); Sodium 147 mMol/L (136-145); eGFR > 60 See Note
[2024-12-25 21:41] LABS: Acetaminophen < 2.0 mcg/mL (10.0-20.0); Alanine Aminotransferase 30 U/L (10-49); Albumin, Serum 4.7 gm/dL (3.5-5.0); Albumin/Globulin Ratio 1.9 (1.2-2.2); Alcohol, Blood Medical 383.1 mg/dL (0-10.0); Alkaline Phosphatase 99 U/L (46-116); Aspartate Amino Transferase 39 U/L (0-34); Bilirubin,Direct 0.2 mg/dL (0.0-0.3); Bilirubin,Total 0.5 mg/dL (0.3-1.2); Creatine Kinase 555 U/L (34-171); Globulin 2.5 gm/dL (2.3-3.5); Magnesium 2.2 mg/dL (1.6-2.6); Osmolality,Calculated 290 (275-295); Salicylate < 3.0 mg/dL; Total Protein 7.2 gm/dL (5.7-8.2)
[2024-12-25 21:41] LABS: Amphetamine/Methamp Scrn,U Negative (Negative); Barbiturate Screen,Urine Negative (Negative); Benzodiazepines Screen,Urine Negative (Negative); Benzoylecgonine Screen, Ur Negative (Negative); Fentanyl Screen,Urine Negative (Negative); Opiate Screen,Urine Negative (Negative); THC Screen,Urine Positive (Negative)
--- NOTE | 2024-12-26 03:01 | PD.EDADDENDU ---
Emergency Room Addendum Addendum Narrative: I was told the patient called EMS not feeling well after drinking alcohol. I ordered blood tests and urine tests. When I looked for the patient to start interview and exam, I was told the patient left AMA. Dread Mclean MD
== END 2024-12-25 22:47 | disposition left against medical advice (07) ==
LOC: SERX 20:56
PROVIDERS: Emergency Provider Emergency Medicine; PCP Family Medicine
DX: R53.81 Other malaise (principal); Z53.29 Procedure and treatment not carried out because of patient's decision for other reasons
CPT/HCPCS: 36415; 80053; 80307; 80320; 80329; 81001; 82248; 82550; 83735; 85025; 85610; 85730; 99281; G0480

== ENCOUNTER 2024-12-26 18:30 | Emergency (ER) | payer MEDICAID, SELFPAY ==
[2024-12-26 18:39] VITALS: BP 142/101; BP 143/91; PULSE 117; RESP 18; TEMP 36.7; O2SAT 96; BMI 31.0
--- NOTE | 2024-12-26 19:45 | EKG_ITS ---
[facility] Test Date: 2024-12-26 Pat Name: HINA KELLY Department: Room: - Gender: Male Internal Investigator: : 1990 Requested By: Dread Butts Order Number: [id number] Reading MD: Dread Butts Measurements Intervals Plummer Rate: 92 P: 55 OK: 148 QRS: 31 QRSD: 86 T: 44 QT: 368 QTc: 455 Interpretive Statements SINUS RHYTHM Compared to ECG 12/20/2024 23:13:17 Myocardial infarct finding no longer present /store/S0/[id number]
--- NOTE | 2024-12-26 19:46 | PC.NURSE ---
Initial contact with pt. Awake, calm and cooperative. Last drink couple of hours ago per pt.
[2024-12-26] MEDS: SODIUM CHLORIDE 0.9% 1000 ML 1,000 ML 999 ML IV ×2 (19:59→22:54)
[2024-12-26] MEDS: LORazepam 2 MG/ML VIAL IVP (20:00)
[2024-12-26] MEDS: ONDANSETRON INJ 2 MG/ML INJ 2 ML 4 MG IV (20:01)
[2024-12-26] MEDS: THIAMINE INJ 100 MG in SODIUM CHLORIDE 0.9% 100 ML 202 MG IV (20:04)
[2024-12-26 20:34] VITALS: BP 135/90; PULSE 90; RESP 18; O2SAT 97
--- NOTE | 2024-12-26 20:37 | EDNOTE_ITS ---
ED Alcohol RME/HPI General Chief Complaint: Alcohol Stated Complaint: ALCOHOL WITHDRAWL Arrival date/time: 12/26/24 18:30 RME / HPI RME / HPI narrative: This section includes all my notes and documentations, including HPI, PE, and ED course. Dread Mclean MD HPI: 34-year-old male here requesting help for alcohol abuse. Reports drinking heavily on a daily basis. Reports no thoughts of hurting himself or others. No hallucinations. No headache or dizziness. No seizure. No chest pain shortness of breath. No abdominal pain. No other complaints. ROS: All negative except as documented in HPI. Physical Exam: General: Alert and oriented. Appears intoxicated. Eyes: Conjunctivae and lids clear. EOMI. PERRL. ENT: No nasal congestion. Neck: Supple. No carotid bruit. No JVD. Heart: RRR. Lungs: No respiratory distress. Good air movement. No rhonchi, wheezing, rales. Abdomen: Soft and nontender. Normal bowel sounds. No distension. No rebound or guarding. Legs: No clubbing, cyanosis, edema. Skin: Warm and dry. Neuro: Alert and oriented X 3. Cranial Nerves II-XII grossly intact. No peripheral motor deficits. I reviewed all diagnostic test results. My interpretation of the EKG is sinus rhythm with no acute ST?T changes. Blood tests and urine tests remarkable for K 3.4, serum alcohol 358.9, and CK 351. At this point, diagnoses include alcohol intoxication, hypokalemia, and rha bdomyolysis. Treatment here included IV fluid, thiamine, Ativan, Toradol, Zofran, and KCl. Patient remained stable. At 6 AM on 12/27/2024, the care of the patient was transferred to Dr. Gutierrez. Dread Mclean MD Related Data Previous Rx's ?Medication ?Instructions ?Recorded chlordiazepoxide HCl 25 mg capsule 25 mg PO QDAY #3 ca ps 08/08/24 levetiracetam 750 mg tablet 750 mg PO BID #60 tabs 05/03 (Keppra) levetiracetam 500 mg tablet 500 mg PO BID #30 tabs 10/03 (Keppra) levetiracetam 1,000 mg tablet 1,000 mg PO BID #60 tabs 10/20/24 (Keppra) lorazepam 0.5 mg tablet (Ativan) 0.5 mg PO QDAY PRN an xiety #7 tabs 11/09/24 Allergies Allergy/AdvReac Type Severity Reaction Status Date / Time sulfamethoxazole Allergy Intermediate VOMIT Verified 12/25/24 12:13 trimethoprim Allergy Intermediate VOMIT Verified 12/25/24 12:13 Course Quality Measures none Orders Category Date Time Status EKG (ED ONLY) *Do not use* NOW Care 12/26/24 19:45 Completed Saline [Insert IV] NOW Care 12/26/24 19:43 Active Straight [In and Out Catheter] X1 Care 12/26/24 19:44 Active EKG (ED Only) Stat Exams 12/26/24 19:45 Draft Acetaminophen Stat Lab 12/26/24 20:15 Completed Alcohol, Blood Medical Stat Lab 12/26/24 20:15 Completed Alcohol, Blood Medical Stat Lab 12/27/24 02:51 Completed Amylase Stat Lab 12/26/24 20:15 Completed BMP [Basic Metabolic Panel] Stat Lab 12/27/24 02:51 Completed Bilirubin,Direct Stat Lab 12/26/24 20:15 Completed CBC Stat Lab 12/26/24 20:15 Completed CK [Creatine Kinase] Stat Lab 12/26/24 20:15 Completed CK [Creatine Kinase] Stat Lab 12/27/24 02:51 Completed CMP [Comprehensive Metabolic Panel] Stat Lab 12/26/24 20:15 Completed Drug Screen,Urine Stat Lab 12/26/24 20:10 Completed Free T4 (Free Thyroxine) Stat Lab 12/26/24 20:15 Completed Lipase Stat Lab 12/26/24 20:15 Completed Magnesium Stat Lab 12/26/24 20:15 Completed PT [Prothrombin Time with INR] Stat Lab 12/26/24 20:15 Completed PTT [Partial Thromboplastin Time] Stat Lab 12/26/24 20:15 Completed Salicylate Stat Lab 12/26/24 20:15 Completed TSH [Thyroid Stimulating Hormone] Stat Lab 12/26/24 20:15 Completed Troponin I Stat Lab 12/26/24 20:15 Completed UA, C/S IF [Urinalysis, C/S if Indicated] Stat Lab 12/26/24 20:10 Completed KCL 10% Liq UDC 15 ML Med 12/26/24 22:36 Discontinued 40 meq PO X1 ONE Ketorolac Inj [Toradol Inj] Med 12/26/24 23:06 Discontinued 30 mg IVP X1 ONE LORazepam [Ativan Inj] Med 12/26/24 19:43 Discontinued 2 mg IVP X1 ONE Ondansetron Inj [Zofran Inj] Med 12/26/24 19:43 Discontinued 4 mg IV X1 ONE Sodium Chloride 0.9% 1000 ml [Ns] 1,000 ml Med 12/26/24 19:43 Discontinued IV 999 mls/hr Sodium Chloride 0.9% 1000 ml [Ns] 1,000 ml Med 12/26/24 22:36 Discontinued IV 999 mls/hr Sodium Chloride 0.9% 1000 ml [Ns] 1,000 ml Med 12/27/24 02:10 Discontinued IV 999 mls/hr Sodium Chloride 0.9% 1000 ml [Ns] 1,000 ml Med 12/27/24 03:48 Discontinued IV 999 mls/hr Thiamine Inj [Vitamin B-1 Inj] 100 mg Med 12/26/24 19:43 Discontinued Sodium Chloride 0.9% [Ns] 100 ml IV X1 Vital Signs Vital signs: Vital Signs Temperature 98.1 F 12/26/24 18:39 Pulse Rate 117 H 12/26/24 18:39 Respiratory Rate 18 12/26/24 18:39 Blood Pressure 143/91 H 12/26/24 18:39 Pulse Oximetry (%) 96 12/26/24 18:39 Oxygen Delivery Method Room Air 12/26/24 18:39 Discharge Plan Prescriptions/Referrals Prescriptions/Med Rec: No Action chlordiazepoxide HCl 25 mg capsule 25 mg PO QDAY Qty: 3 0RF levetiracetam [Keppra] 750 mg tablet 750 mg PO BID Qty: 60 0RF levetiracetam [Keppra] 500 mg tablet 500 mg PO BID Qty: 30 0RF levetiracetam [Keppra] 1,000 mg tablet 1,000 mg PO BID Qty: 60 0RF lorazepam [Ativan] 0.5 mg tablet 0.5 mg PO QDAY PRN (Reason: anxiety) Qty: 7 0RF Referrals: Stephan Perkins MD [Primary Care Provider] - In 1 week Problem List Clinical Impression: Alcohol intoxication, Rhabdomyolysis, Hypokalemia Patient/Caregiver Discharge Instructions Print Language: Occitan Alcohol MDM Narrative MDM Narrative: 34-year-old male here requesting help for alcohol abuse. Reports drinking blake roberts on a daily basis. Reports no thoughts of hurting himself or others. No hallucinations. No headache or dizziness. No seizure. No chest pain shortness of breath. No abdominal pain. No other complaints. Patient data External records reviewed:: [facility] previous records and EMS form Clinical information provided by:: patient and EMS Social determinants that could affect healthcare access:: alcohol use Patient has the following chronic illnesses:: Alcohol abuse How is presenting disease/condition affected by chronic disease/condition?: exacerbated by Evaluation data The following diagnostics were reviewed and interpreted by me:: lab results and EKG tracing(s) (My interpretation of the EKG: NSR (92 bpm) with no ST-T changes. Dread Mclean MD) Lab and/or radiology exams considered but not ordered:: None Interpretation Summary: Alcohol intoxication, hypokalemia, rhabdomyolysis Medications / Prescriptions Medications or Prescriptions considered but not ordered:: None Medication administrations:: Medication Administration History Discontinued Medications Sodium Chloride (Ns) 1,000 mls @ 999 mls/hr IV .Q1H1M ONE Stop: 12/26/24 20:43 Last Infusion: 12/26/24 21:27 Dose: Infused Documented By: Admin: 12/26/24 19:59 Dose: 999 mls/hr Documented By: LB Thiamine HCl 100 mg/ Sodium (Chloride) 101 mls @ 202 mls/hr IV X1 ONE Stop: 12/26/24 20:12 Last Infusion: 12/26/24 20:34 Dose: Infused Documented By: Admin: 12/26/24 20:04 Dose: 202 mls/hr Documented By: LB Sodium Chloride (Ns) 1,000 mls @ 999 mls/hr IV .Q1H1M ONE Stop: 12/26/24 23:36 Last Infusion: 12/27/24 00:00 Dose: Infused Documented By: Admin: 12/26/24 22:54 Dose: 999 mls/hr Documented By: LB Sodium Chloride (Ns) 1,000 mls @ 999 mls/hr IV .Q1H1M ONE Stop: 12/27/24 03:10 Last Infusion: 12/27/24 03:45 Dose: Infused Documented By: Admin: 12/27/24 02:44 Dose: 999 mls/hr Documented By: CVL Sodium Chloride (Ns) 1,000 mls @ 999 mls/hr IV .Q1H1M ONE Stop: 12/27/24 04:48 Last Admin: 12/27/24 04:10 Dose: 999 mls/hr Documented By: LB Ketorolac Tromethamine (Ketorolac Inj 30 Mg/Ml Vial) 30 mg IVP X1 ONE Stop: 12/26/24 23:07 Last Admin: 12/26/24 23:19 Dose: 30 mg Documented By: LB Lorazepam (Lorazepam 2 Mg/Ml Vial) 2 mg IVP X1 ONE Stop: 12/26/24 19:44 Last Admin: 12/26/24 20:00 Dose: 2 mg Documented By: LB Ondansetron HCl (Ondansetron Inj 2 Mg/Ml Inj 2 Ml) 4 mg IV X1 ONE; Protocol Stop: 12/26/24 19:44 Last Admin: 12/26/24 20:01 Dose: 4 mg Documented By: LB Potassium Chloride (Potassium Chloride 10% 20 Meq/15 Ml Udc) 40 meq PO X1 ONE Stop: 12/26/24 22:37 Last Admin: 12/26/24 22:54 Dose: 40 meq Documented By: LB IV fluid, Zofran, KCl, thiamine, Ativan, and Toradol. Consultations Consultation(s) initiated? (list below): No Diagnosis Differential diagnosis alcohol: alcohol withdrawal delirium, hypomagnesemia, alcohol intoxication, alcohol ketoacidosis, alcohol withdrawal syndrome and alcohol withdrawal seizure Most likely diagnosis given after review of the tests above:: Alcohol intoxication, hypokalemia, rhabdomyolysis Admission Indicated Admission indicated?: not indicated Explain why admission is indicated or not indicated:: Completed treatment pending. Admission Request Was there a request for admission?: No Disposition Plan Disposition Plan: other (specify) (Care of the patient was transferred to Dr. Gutierrez. )
[2024-12-26 21:30] VITALS: BP 111/84; PULSE 92; RESP 18; O2SAT 98
[2024-12-26 21:33] LABS: Basophils % (Auto) 0 % (0-2.5); Eosinophils % (Auto) 0 % (0-10); Hematocrit 43.9 % (41.0-53.0); Hemoglobin 15.4 g/dL (13.5-16.0); Immature Granulocytes % (Auto) 0 % (0-0); Immature Granulocytes Auto 0.01 Thou/mm3 (0.00-0.00); Lymphocytes # (Auto) 1.7 Thou/mm3 (1.0-4.8); Lymphocytes % (Auto) 27 % (10-50); Mean Corpuscular HGB Conc 35.1 g/dl (31.0-37.0); Mean Corpuscular Volume 83 fL (80-100); Monocytes # (Auto) 0.3 Thou/mm3 (0.0-0.8); Monocytes % (Auto) 5 % (0-12); Neutrophils # (Auto) 4.3 Thou/mm3 (1.8-7.7); Neutrophils % (Auto) 67 % (37-80); Nucleated Red Blood Cell % 0 /100 WBC (0); Platelet Count 164 Thou/mm3 (140-440); RDW Standard Deviation 41.4 fL (35.1-43.9); Red Blood Count 5.31 Miln/mm3 (4.50-5.90); White Blood Count 6.4 Thou/mm3 (3.8-10.6)
[2024-12-26 21:34] LABS: Collection Type, Urine Clean Catch
[2024-12-26 21:42] LABS: INR 1.1 (0.9-1.3); Partial Thromboplastin Time 25.1 Seconds (22.0-36.0); Prothrombin Time 11.5 Seconds (9.0-12.2)
[2024-12-26 21:59] LABS: Acetaminophen < 2.0 mcg/mL (10.0-20.0); Alanine Aminotransferase 30 U/L (10-49); Albumin, Serum 4.6 gm/dL (3.5-5.0); Albumin/Globulin Ratio 1.8 (1.2-2.2); Alkaline Phosphatase 108 U/L (46-116); Amylase 22 U/L (30-118); Anion Gap 13 (7-16); Aspartate Amino Transferase 33 U/L (0-34); BUN/Creatinine Ratio 6 Ratio (12-20); Bilirubin,Direct 0.2 mg/dL (0.0-0.3); Bilirubin,Total 0.5 mg/dL (0.3-1.2); Blood Urea Nitrogen 6 mg/dL (9-23); Carbon Dioxide 24.4 mMol/L (20.0-31.0); Chloride 109 mMol/L (98-107); Creatine Kinase 351 U/L (34-171); Estimated Creatinine Clearance 120.8 mL/min (>60); Free T4 (Free Thyroxine) 1.19 ng/dL (0.89-1.76); Globulin 2.6 gm/dL (2.3-3.5); Glucose 106 mg/dL (74-106); Lipase 34 U/L (12-53); Osmolality,Calculated 288 (275-295); Potassium 3.4 mMol/L (3.4-5.1); Salicylate < 3.0 mg/dL; Sodium 146 mMol/L (136-145); Thyroid Stimulating Hormone 3.23 uIU/mL (0.55-4.78); Total Protein 7.2 gm/dL (5.7-8.2); Troponin I < 0.020 ng/mL (0.0-0.045); eGFR > 60 See Note
[2024-12-26 22:00] LABS: Bilirubin,Urine Negative (Negative); Blood,Urine Negative (Negative); Clarity,Urine Clear (Clear/Hazy); Color,Urine Lt-Yellow (Lt Yel-Yel); Culture Indicated,Urine Not Indicated; Glucose, Urine Negative (Negative); Ketones,Urine Negative (Negative); Leukocyte Esterase,Urine Negative (Negative); Nitrite,Urine Negative (Negative); Protein,Urine Trace (Neg - Trace); RBC,Urine 1 /hpf (0-3); Specific Gravity,Urine 1.014 (1.001-1.035); Squamous Epithelial Cell,Urine < 1 /hpf (0-5); Urobilinogen,Urine Negative mg/dL (0.0-1.0); WBC,Urine 1 /hpf (0-5)
[2024-12-26 22:09] LABS: Amphetamine/Methamp Scrn,U Negative (Negative); Barbiturate Screen,Urine Negative (Negative); Benzodiazepines Screen,Urine Negative (Negative); Benzoylecgonine Screen, Ur Negative (Negative); Fentanyl Screen,Urine Negative (Negative); Opiate Screen,Urine Negative (Negative); THC Screen,Urine Positive (Negative)
[2024-12-26 22:20] LABS: Alcohol, Blood Medical 358.9 mg/dL (0-10.0)
--- NOTE | 2024-12-26 22:34 | PC.NURSE ---
Pt ambulated to BR without any problem, gait steady.
[2024-12-26] MEDS: POTASSIUM CHLORIDE 10% 20 MEQ/15 ML UDC 40 MEQ PO (22:54)
[2024-12-26 23:02] VITALS: BP 136/82; PULSE 78; RESP 18; O2SAT 98
[2024-12-26] MEDS: KETOROLAC INJ 30 MG/ML VIAL IVP (23:19)
[2024-12-27] VITALS (8 sets, daily range): BP systolic 105–137; BP diastolic 63–87; PULSE 62–85; RESP 18; TEMP -12.3–37.2; O2SAT 97–99
[2024-12-27] MEDS: SODIUM CHLORIDE 0.9% 1000 ML 1,000 ML 999 ML IV ×2 (02:44→04:10)
--- NOTE | 2024-12-27 03:20 | PC.NURSE ---
Up ambulated to BR without any problem, gait steady.
[2024-12-27 03:42] LABS: Alcohol, Blood Medical 221.1 mg/dL (0-10.0); Anion Gap 7 (7-16); BUN/Creatinine Ratio 6 Ratio (12-20); Blood Urea Nitrogen 6 mg/dL (9-23); Calcium 8.1 mg/dL (8.3-10.6); Carbon Dioxide 26.2 mMol/L (20.0-31.0); Chloride 111 mMol/L (98-107); Creatine Kinase 258 U/L (34-171); Estimated Creatinine Clearance 120.8 mL/min (>60); Glucose 95 mg/dL (74-106); Osmolality,Calculated 284 (275-295); Potassium 4.3 mMol/L (3.4-5.1); Sodium 144 mMol/L (136-145); eGFR > 60 See Note
--- NOTE | 2024-12-27 06:17 | PD.EDADDENDU ---
Emergency Room Addendum Addendum Narrative: 0600: Care assumed from Dr. Mclean, the previous shift emergency physician. Past medical, surgical, social and family history reviewed. Vitals and home medications reviewed. I will assume the care of the patient at this time. Please refer to the emergency department record for history and examination from initial visit.? 0840: Alcohol level #3 is 138, stable. Patient will be discharged home. Patient states he binge drinks at home. He states he has kids at home and would benefit from outpatient alcoholism resources. PCP is at [facility] so he will follow-up with them tomorrow. At this time, he has no withdrawals. Physical exam by me shows patient under no acute distress at this time. At this time, he has no withdrawals. Diagnoses: -Alcohol intoxication -Rhabdomyolysis -Hypokalemia -Alcohol abuse
--- NOTE | 2024-12-27 07:16 | PC.NURSE ---
Received report from Santiago MOORE and assumed care of patient. Patient sleeping in bed atn this time with no signs of distress and no complaints. Will continue to monitor and awaiting alcohol blood test results.
--- NOTE | 2024-12-27 07:36 | PC.NURSE ---
Patient observed shaking in bed. When shaking stopped, patient was asked if he knew what was happening and patient responded seizure . Patient replied also that he has hx of seizures and takes keppra .
== END 2024-12-27 13:22 | disposition home or self-care (01) ==
PROVIDERS: Family Medicine; Emergency Provider Emergency Medicine; PCP Family Medicine
DX: F10.129 Alcohol abuse with intoxication, unspecified (principal); E87.6 Hypokalemia; M62.82 Rhabdomyolysis; Y90.7 Blood alcohol level of 200-239 mg/100 ml
CPT/HCPCS: 36415; 80048; 80053; 80307; 80320; 80329; 81001; 82150; 82248; 82550; 83690; 83735; 84439; 84443; 84484; 85025; 85610; 85730; 93005; 96361; 96365; 99284; J1885; J2060; J2405; J3411; J7030; J7050; A9270; G0480

== ENCOUNTER 2025-01-06 22:36 | Emergency (ER) | payer MEDICAID, SELFPAY ==
[2025-01-06 22:37] VITALS: BMI 28.8
[2025-01-06 23:15] VITALS: BP 148/83; PULSE 96; RESP 16; TEMP 37.2; O2SAT 97
--- NOTE | 2025-01-06 23:29 | PC.NURSE ---
ASSUMED CARE OF PATIENT, PT APPEARS TO BE IN NO ACUTE DISTRESS, HOWEVER HE IS SLURRING HIS WORDS AND LOOKS SEDATED. PT STATES THAT HE IS GOING THROUGH A DIVORCE AND TOOK HIS TID ATIVAN 1MG PRN PRESCRIBED FOR ALCOHOL WITHDRAWAL (LAST PILL WAS AT 1999) AND THEN DECIDED TO TAKE AT LEAST 4 MORE PILLS TO GO TO SLEEP AND NOT WAKE UP. PT STATES HES NOT SUICIDAL, JUST WANTED TO SLEEP. PT STATES THAT HE HAS DONE THIS ONCE BEFORE WITH PILL. PT WAITING FOR EVALUATION FROM ER MD, AND I WILL CONTINUE WITH PLAN OF CARE
--- NOTE | 2025-01-06 23:37 | PC.NURSE ---
SPOKE TO MERE FROM POISON CONTROL SHE STATES TO JUST OBSERVE THE PATIENT FOR 4-6HRS UNTIL PATIENT IS BACK AT THEIR BASELINE
[2025-01-06 23:53] LABS: Basophils % (Auto) 0 % (0-2.5); Eosinophils # (Auto) 0.1 Thou/mm3 (0.0-0.5); Eosinophils % (Auto) 1 % (0-10); Hematocrit 38.7 % (41.0-53.0); Hemoglobin 13.3 g/dL (13.5-16.0); Immature Granulocytes % (Auto) 0 % (0-0); Immature Granulocytes Auto 0.01 Thou/mm3 (0.00-0.00); Lymphocytes # (Auto) 0.8 Thou/mm3 (1.0-4.8); Lymphocytes % (Auto) 15 % (10-50); Mean Corpuscular HGB Conc 34.4 g/dl (31.0-37.0); Mean Corpuscular Volume 85 fL (80-100); Monocytes # (Auto) 0.4 Thou/mm3 (0.0-0.8); Monocytes % (Auto) 9 % (0-12); Neutrophils # (Auto) 3.7 Thou/mm3 (1.8-7.7); Neutrophils % (Auto) 75 % (37-80); Nucleated Red Blood Cell % 0 /100 WBC (0); Platelet Count 121 Thou/mm3 (140-440); Red Blood Count 4.58 Miln/mm3 (4.50-5.90); White Blood Count 4.9 Thou/mm3 (3.8-10.6)
[2025-01-07 00:32] LABS: Acetaminophen < 2.0 mcg/mL (10.0-20.0); Alanine Aminotransferase 22 U/L (10-49); Albumin, Serum 4.6 gm/dL (3.5-5.0); Alcohol, Blood Medical 125.6 mg/dL (0-10.0); Alkaline Phosphatase 90 U/L (46-116); Anion Gap 9 (7-16); Aspartate Amino Transferase 22 U/L (0-34); BUN/Creatinine Ratio 6 Ratio (12-20); Bilirubin,Total 0.7 mg/dL (0.3-1.2); Blood Urea Nitrogen 6 mg/dL (9-23); Calcium 9.1 mg/dL (8.3-10.6); Calcium (Corrected) 9.1 mg/dL (8.5-10.1); Carbon Dioxide 24.8 mMol/L (20.0-31.0); Chloride 107 mMol/L (98-107); Estimated Creatinine Clearance 116.7 mL/min (>60); Globulin 2.3 gm/dL (2.3-3.5); Glucose 94 mg/dL (74-106); Osmolality,Calculated 278 (275-295); Potassium 4.1 mMol/L (3.4-5.1); Salicylate < 3.0 mg/dL; Sodium 141 mMol/L (136-145); Total Protein 6.9 gm/dL (5.7-8.2); eGFR > 60 See Note
--- NOTE | 2025-01-07 00:34 | PD.EDOVER ---
ED Overdose RME/HPI General Chief Complaint: Overdose Stated Complaint: MAY HAVE TAKEN TOO MUCH OF MEDICATION Time Seen by Provider: 01/07/25 00:34 Arrival date/time: 01/06/25 22:36 RME / HPI RME / HPI Narrative: Dr. Vasques's Main ED Evaluation: 34yo male with a history of seizures, anxiety, depression, alcohol abuse presents to the ED for a voluntary mental evaluation. Patient states he is on Ativan 1mg TID, but took 4 extra tablets at 2230 in order to help deal with his divorce. Patient denies any SI, HI or hallucinations. Patient states he last drank alcohol 2 days ago. PCP is [facility]. Patient states he takes Keppra BID and took his dose tonight. Related Data Previous Rx's ?Medication ?Instructions ?Recorded chlordiazepoxide HCl 25 mg capsule 25 mg PO QDAY #3 caps 08/08/24 levetiracetam 750 mg tablet 750 mg PO BID #60 tabs 09/16/24 (Keppra) levetiracetam 500 mg tablet 500 mg PO BID #30 tabs 10/10/24 (Keppra) levetiracetam 1,000 mg tablet 1,000 mg PO BID #60 tabs 10/20/24 (Keppra) lorazepam 0.5 mg tablet (Ativan) 0.5 mg PO QDAY PRN anxiety #7 tabs 11/09/24 lorazepam 1 mg tablet (Ativan) 1 mg PO TID PRN alcohol withdrawal 12/27/24 #14 tabs Allergies Allergy/AdvReac Type Severity Reaction Status Date / Time sulfamethoxazole Allergy Intermediate VOMIT Verified 12/25/24 12:13 trimethoprim Allergy Intermediate VOMIT Verified 12/25/24 12:13 Review of Systems Review of Systems Systems Reviewed: All systems reviewed, normal except as documented Past Medical History Past Medical History NEUROLOGIC: Positive Neurological Disorders and Seizures CARDIAC: Negative Cardiac Disorders or Congestive Heart Failure RESPIRATORY: Negative Chronic Obstructive Pulmonary Disease (COPD) GASTROINTESTINAL: Negative Gastrointestinal Disorders GENITOURINARY: Negative Genitourinary Disorders or Renal Disease MUSCULOSKELETAL: Negative Musculoskeletal Disorders ENDOCRINE: Negative Endocrine Disorders, Diabetes Mellitus Type 1 or Diabetes Mellitus Type 2 HEMATOLOGIC: Negative Blood Disorders PSYCHO/SOCIAL: Positive Depression and Anxiety OTHER HISTORY: Positive Hospitalization and Falls; Negative Autoimmune Disease, Blood Transfusions, Blood Transfusion Reaction or Anesthesia Reactions Family History FAMILY HISTORY: Positive Family Respiratory Disorders, Family Cancer and Family Surgery; Negative Family Psychiatric Problems, Family Cardiac Disorders, Family Gastrointestinal Problems or Family Anesthesia Reaction Surgical History SURGICAL: Negative Joint Replacement Social History SMOKING STATUS: Never smoker SECOND HAND EXPOSURE: No ED Exam Narrative Physical exam: General: Non-toxic, well appearing, in no acute distress, and appears stated age and well developed and well nourished. Vital signs: Normal. Head: Normocephalic and atraumatic. Eyes: Aproptotic, extraocular movements intact. Nose: Nares without evidence of rhinorrhea. Neck: Supple without menigismus without lympadenopathy. Heart: Regular rate and rhythm without murmur, gallops, or rubs. Lungs: Clear to auscultation without wheezing, rales, or rhonchi. Abdomen: Soft, non distended. No tenderness. Normal bowel sounds. Negative Kat sign and no McBurney?s point tenderness. No guarding, rebound, or rovsing. Back: No costovertebral angle tenderness. Neurological: Alert and oriented to person, place, time. Gait normal. Extremities: no cyanosis or edema. Psych: appropriate mood, flat affect, not agitated Skin: no rashes, ecchymosis, or lesions. Course Quality Measures none Orders Category Date Time Status EKG (ED ONLY) *Do not use* NOW Care 01/07/25 00:41 Completed EKG (ED Only) Stat Exams 01/07/25 00:41 Ordered Acetaminophen Stat Lab 01/06/25 23:42 Completed Alcohol, Blood Medical Stat Lab 01/06/25 23:42 Completed CBC Stat Lab 01/06/25 23:42 Completed CMP [Comprehensive Metabolic Panel] Stat Lab 01/06/25 23:42 Completed Drug Screen,Urine Stat Lab 01/06/25 23:54 Completed Salicylate Stat Lab 01/06/25 23:42 Completed UA [Urinalysis] Stat Lab 01/06/25 23:54 Completed Vital Signs Vital signs: Vital Signs Temperature 98.9 F 01/06/25 23:15 Pulse Rate 96 01/06/25 23:15 Respiratory Rate 16 01/06/25 23:15 Blood Pressure 148/83 H 01/06/25 23:15 Pulse Oximetry (%) 97 01/06/25 23:15 Oxygen Delivery Method Room Air 01/06/25 23:15 Overdose MDM Narrative MDM Narrative:: Scribe Attestation: 01/07/25 - Cristine Borja, lopez scribing for and in the presence of Dr. Vasques. Per poison control, patient needs to be observed 4-6 hours from the time of ingestion and if he continues to remain at his baseline, patient will be medically clear. The patient was placed in ED observation care at 01/07/25 at 0015 hours. The patient was placed in ED observation care because of pending psychiatric evaluation. The patients past medical history, social history, and family history were reviewed. The plan of care will include serial examinations. 0434: Patient has been under observation for the last few hours without any complications. Patient is medically clear for crisis evaluation. 0600: Care signed out to Dr. Gant (emergency physician). Past medical, surgical, social and family history reviewed. Vitals and home medications reviewed. Results and treatment plan discussed. They will assume the care of the patient at this time and will follow the patient, pending crisis evaluation. At this time, observation has ended. Patient data External records reviewed:: [facility] previous records (Per chart review, patient was seen here on 12/27/24 for alcohol abuse.) Clinical information provided by:: patient Social determinants that could affect healthcare access:: alcohol use (history of) Patient has the following chronic illnesses:: seizures, anxiety, depression How is presenting disease/condition affected by chronic disease/condition?: caused by Evaluation data The following diagnostics were reviewed and interpreted by me:: lab results and EKG tracing(s) Lab and/or radiology exams considered but not ordered:: none Interpretation Summary: CBC is normal, CMP is normal, Acetaminophen is negative, Blood Alcohol is 125.6, UDS is negative, according to my interpretation. EKG done at 0045, NSR, rate of 97, normal axis, normal intervals, QRS: 88, QTc: 392, no STEMI, according to my interpretation. Medications / Prescriptions Medications or Prescriptions considered but not ordered:: none Medication administrations:: see above, if any Consultations Consultation(s) initiated? (list below): No Diagnosis Overdose Differential Diagnosis: drug overdose, accidental drug ingestion and other (anxiety) Most likely diagnosis given after review of the tests above:: see clinical impression below Admission Indicated Admission indicated?: not indicated Admission Request Was there a request for admission?: No Disposition Plan Disposition Plan: other (specify) (Signed out to Dr. Gant at 0600 pending crisis evaluation.) Discharge Plan Prescriptions/Referrals Prescriptions/Med Rec: No Action chlordiazepoxide HCl 25 mg capsule 25 mg PO QDAY Qty: 3 0RF levetiracetam [Keppra] 750 mg tablet 750 mg PO BID Qty: 60 0RF levetiracetam [Keppra] 500 mg tablet 500 mg PO BID Qty: 30 0RF levetiracetam [Keppra] 1,000 mg tablet 1,000 mg PO BID Qty: 60 0RF lorazepam [Ativan] 0.5 mg tablet 0.5 mg PO QDAY PRN (Reason: anxiety) Qty: 7 0RF lorazepam [Ativan] 1 mg tablet 1 mg PO TID MDD 4 PRN (Reason: alcohol withdrawal) Qty: 14 0RF Referrals: Stephan Perkins MD [Primary Care Provider] - In 1 week Problem List Clinical Impression: Adjustment disorder Patient/Caregiver Discharge Instructions Print Language: Sami
[2025-01-07 00:41] LABS: Collection Type, Urine Clean Catch; Squamous Epithelial Cell,Urine 0 /hpf (0-5)
--- NOTE | 2025-01-07 00:41 | EKG_ITS ---
[facility] Test Date: 2025-01-07 Pat Name: HINA KELLY Department: Room: - Gender: Male Development Vice President: : 1990 Requested By: Leona Drake Order Number: [id number] Reading MD: Leona Drake Measurements Intervals [place] Rate: 97 P: 60 OR: 145 QRS: 87 QRSD: 88 T: 19 QT: 337 QTc: 429 Interpretive Statements SINUS RHYTHM Compared to ECG 12/26/2024 20:15:35 No significant changes /store/S0/[id number]/ecg/[id number].pdf
[2025-01-07 00:49] LABS: Bilirubin,Urine Negative (Negative); Blood,Urine Negative (Negative); Clarity,Urine Clear (Clear/Hazy); Color,Urine Colorless (Lt Yel-Yel); Glucose, Urine Negative (Negative); Ketones,Urine Negative (Negative); Leukocyte Esterase,Urine Negative (Negative); Nitrite,Urine Negative (Negative); Protein,Urine Negative (Neg - Trace); RBC,Urine 2 /hpf (0-3); Specific Gravity,Urine 1.007 (1.001-1.035); Urobilinogen,Urine Negative mg/dL (0.0-1.0); WBC,Urine < 1 /hpf (0-5)
[2025-01-07 01:00] LABS: Amphetamine/Methamp Scrn,U Negative (Negative); Barbiturate Screen,Urine Negative (Negative); Benzodiazepines Screen,Urine Negative (Negative); Benzoylecgonine Screen, Ur Negative (Negative); Fentanyl Screen,Urine Negative (Negative); Opiate Screen,Urine Negative (Negative); THC Screen,Urine Negative (Negative)
[2025-01-07 06:25] VITALS: BP 105/69; PULSE 96; RESP 17; TEMP 36.6; O2SAT 100
--- NOTE | 2025-01-07 07:19 | EDNOTE_ITS ---
Emergency Room Addendum Addendum Narrative: 0600: Care assumed from Dr. Max, the previous shift emergency physician. Past medical, surgical, social and family history reviewed. Vitals and home medications reviewed. I will assume the care of the patient at this time, pending mental health evaluation. The patient was placed in ED observation care at 0600 01/07/2025. While in ED observation the pt will have access to water, food, and personal hygiene. If the pt takes home medication(s), they will be continued in ED observation. Please refer to the emergency department record for history and examination from initial visit.?The following addendum documentation note is intended to reflect any pending information, findings, or radiology results not included in the patient?s initial chart. 1030: precision printing worker has met and evaluated the patient in the ED. States the reported patient was recently hospitalized at [facility] and [facility] within the last month. At this time placed on a 5150 hold, pending [facility] facility placement. 1345: Patient has been accepted by Dr. Langston for transfer to [facility]. EMS p/u 15:00.
--- NOTE | 2025-01-07 07:30 | PC.NURSE ---
report given from consumer banker. pt is on 5150 hold pending mental eval and possible placement. pt is sleeping on gueny no distress noted. pt wakes with verbal. meal tray offered but denied. ice water given. sitter at bedside.
[2025-01-07 08:00] VITALS: BP 110/71; PULSE 89; RESP 16; TEMP 36.6; O2SAT 100
[2025-01-07 10:00] VITALS: BP 112/69; PULSE 82; RESP 18; TEMP 36.8; O2SAT 100
--- NOTE | 2025-01-07 11:21 | PC.CC ---
0850: Pt is a 34 yo male who arrived at the ED on 01/06/25 requesting a voluntary mental health evaluation. JOCELYNE Cook completed a face to face initial assessment on 01/07/25 at 0850. JOCELYNE Kleber Joey met with the pt at bedside in ER #[id number] and upon entry into the room, pt was sleeping. JESSICAYaya Kleber Cook disclosed limits of confidentiality as well. After pt became awake, he appeared alert and oriented to self, place, and situation. Patient?s mood appeared depressed; he was cooperative; made minimal eye contact; patient had somewhat of good insight. Patient?s thought process was somewhat organized. No signs of delusions, paranoia, and/or AVH. Pt reported that he ingested seven extra Ativan 1mg more than he is supposed to take. Pt reports he takes 4 Ativan pills a day and on top of what he is prescribed to take, he took an additional 7 more pills. Pt reports he attempted to overdose as a plan to end his life so he could no longer feel the pain. Pt reported that he and his are but living together. Pt reported that his told him that she wants to officially separate. Pt reported that they are in the process of moving and the told him that she does not want him to move with the family. Pt reports this is what triggered the excessive drinking for the past three days and then the thought of ending his life via OD on Ativan. Pt admitted to prior h/o of mental health hospitalizations within the past 6 months due to Danger to Self. Pt reports that if he were to discharge today, he is unsure if he would attempt to end his life or hurt himself in some way. Pt reported that he has been for ten years and does not want to separate from his . Pt reported that if he left him he would be homeless and stated he has no other supports in his life besides his . Pt reports he is connected to [facility], saw a psychiatrist but never saw a therapist due to non compliance. Pt reported his PCP is Dr. Kuhn from [facility] and that is who prescribed the Ativan to treat anxiety and depression. Pt reported this is the second time he has attempted to end his life via OD; once when he was 20 years old and this current incident. Pt reported he has had suicidal ideation but was able to control it until now. Pt reports he has beent taking Ativan since he left [facility] on or around December 24, 2024. Pt scored High-Risk on the Sperry Scale. Patient?s toxicology was positive for alcohol upon providing the initial blood sample. Patient provided JOCELYNE Cook permission to contact his Becca Yarbrough at [phone] for further details regarding this event. Per pts , pt has been an alcoholic for 10 years and reports he has been in and out of mental health hospitals since October 2024- and has stayed at [facility] and [facility] located in [place]. Becca confirmed that she and the pt are and stated that she told the pt three days ago that she no longer wants to be in the relationship. Pts reported that she told pt he cannot move with the family, as they are currently in the process of moving. This when Becca stated the pt increased his drinking and made statements to her that she was going to kill himself, but she did not think he was serious. Upon clinical with [facility], Zuleyma Ramsey patient does meet criteria for 5150-Hold. JOCELYNE Cook to begin process for placement. JOCELYNE Cook provided patient with advisement of 5150-hold. Patient scored High Risk on C-SSRS. 5150-hold details were provided to Dr. Gant and he agreed to the hold, ssrs report developer Lanise and TERESA Pacheco are aware of the hold status. JOCELYNE Cook to send packet to [facility] facilities via [employer].
--- NOTE | 2025-01-07 11:38 | PC.NURSE ---
pt is pending mental health facility placement.
[2025-01-07 12:00] VITALS: BP 123/70; PULSE 91; RESP 18; TEMP 36.7; O2SAT 100
--- NOTE | 2025-01-07 13:41 | PC.CC ---
1326: JOCELYNE Cook received a call from [facility] at [facility] stating the pt was accepted. Pt was accepted at 1326, accepting provider Dr. Langston, [address]. JOCELYNE Cook will arrange transportation.
--- NOTE | 2025-01-07 13:57 | PC.SS ---
Transportation arranged via [employer] and spoke with Bernadtete [phone]. ETA for pt is 1500.
[2025-01-07 14:09] VITALS: BP 120/70; PULSE 87; RESP 18; TEMP 36.6; O2SAT 99
--- NOTE | 2025-01-07 14:18 | PC.CC ---
JOCELYNE Cook contacted pts to inform her that pt was accepted to [facility]. Pts stated that she would not be able to visit the pt before departure as she was babysitting. Pts will f/u with [place] Fercho later this evening for pt updates.
[2025-01-07] MEDS: GABAPENTIN 300 MG CAPSULE PO (14:51)
[2025-01-07] MEDS: levETIRAcetam 250 MG TABLET 1000 MG PO (14:51)
--- NOTE | 2025-01-07 16:34 | PC.NURSE ---
Report given to Leona ortega at [facility]. pt left with [facility] housekeeper Callahan.
== END 2025-01-07 15:30 ==
PROVIDERS: Emergency Medicine; Emergency Provider Emergency Medicine; PCP Family Medicine
DX: F43.22 Adjustment disorder with anxiety (principal)
CPT/HCPCS: 36415; 80053; 80307; 80320; 80329; 81001; 85025; 90839; 93005; 96127; 99285; A9270; G0480

== ENCOUNTER 2025-01-24 16:03 | Emergency (ER) | payer MEDICAID, SELFPAY ==
--- NOTE | 2025-01-24 16:38 | PD.EDUPEX ---
Upper Extremity Injury RME/HPI General Chief Complaint: Hand/Wrist Problems Stated Complaint: Right hand pain Time Seen by Provider: 01/24/25 16:38 Source: patient Arrival date/time: 01/24/25 16:03 34-year-old male with no known medical history presents to the emergency room with a chief complaint of tenderness and swelling to the right hand after the patient punched a wall at 9 AM this morning Mode of arrival: ambulatory Limitations: no limitations Related Data Home Medications ?Medication ?Instructions ?Recorded ?Confirmed gabapentin 300 mg capsule 300 mg PO TID 01/07/25 01/07/25 prazosin 1 mg capsule 3 mg PO .qhs 01/07/25 01/07/25 Previous Rx's ?Medication ?Instructions ?Recorded levetiracetam 1,000 mg tablet 1,000 mg PO BID #60 tabs 10/20/24 (Keppra) lorazepam 1 mg tablet (Ativan) 1 mg PO TID PRN alcohol withdrawal 12/27/24 #14 tabs Allergies Allergy/AdvReac Type Severity Reaction Status Date / Time sulfamethoxazole Allergy Intermediate VOMIT Verified 12/25/24 12:13 trimethoprim Allergy Intermediate VOMIT Verified 12/25/24 12:13 Review of Systems Review of Systems Systems Reviewed: All systems reviewed, normal except as documented Constitutional Constitutional: Reports system reviewed and no additional complaints, except as documented, Denies fatigue, Denies fever(s), Denies headache(s) and Denies weakness Eyes Eyes: Reports system reviewed and no additional complaints, except as documented, Denies blurry vision and Denies change in vision ENT Ears, Nose, Mouth, and Throat: Reports system reviewed and no additional complaints, except as documented, Denies otalgia, Denies headache(s), Denies nasal congestion, Denies throat swelling and Denies vertigo Cardiovascular Cardiovascular: Reports system reviewed and no additional complaints, except as documented, Denies chest pain, Denies dyspnea and Denies dyspnea on exertion Respiratory Respiratory: Reports system reviewed and no additional complaints, except as documented, Denies chest congestion, Denies cough, Denies dyspnea, Denies dyspnea on exertion and Denies wheezing Gastrointestinal Gastrointestinal: Reports system reviewed and no additional complaints, except as documented, Denies abdominal pain, Denies cramping, Denies nausea and Denies vomiting Genitourinary Genitourinary: Reports system reviewed and no additional complaints, except as documented, Denies dysuria and Denies hematuria Musculoskeletal Musculoskeletal: Reports system reviewed and no additional complaints, except as documented, Reports arthralgias, Denies back pain, Reports joint swelling and Reports limited range of motion Integumentary/Breasts Skin/Breast: Reports system reviewed and no additional complaints, except as documented and Denies wounds Neurologic Neurologic: Reports system reviewed and no additional complaints, except as documented, Denies confusion, Denies headache(s), Denies lack of coordination, Denies vertigo and Denies weakness Psychiatric Psychiatric: Reports system reviewed and no additional complaints, except as documented, Denies anxiety, Denies confusion, Denies depression, Denies paranoia, Denies suicidal ideation and Denies tactile hallucinations Endocrine Endocrine: Reports system reviewed and no additional complaints, except as documented and Denies fatigue Hematologic/Lymphatic Hematologic/Lymphatic: Reports system reviewed and no additional complaints, except as documented and Denies lymphadenopathy Allergic/Immunologic Allergic/Immunologic: Reports system reviewed and no additional complaints, except as documented, Denies throat swelling, Denies urticaria and Denies wheezing Past Medical History Past Medical History NEUROLOGIC: Positive Neurological Disorders and Seizures CARDIAC: Negative Cardiac Disorders or Congestive Heart Failure RESPIRATORY: Negative Chronic Obstructive Pulmonary Disease (COPD) GASTROINTESTINAL: Negative Gastrointestinal Disorders GENITOURINARY: Negative Genitourinary Disorders or Renal Disease MUSCULOSKELETAL: Negative Musculoskeletal Disorders ENDOCRINE: Negative Endocrine Disorders, Diabetes Mellitus Type 1 or Diabetes Mellitus Type 2 HEMATOLOGIC: Negative Blood Disorders PSYCHO/SOCIAL: Positive Depression and Anxiety OTHER HISTORY: Positive Hospitalization and Falls; Negative Autoimmune Disease, Blood Transfusions, Blood Transfusion Reaction or Anesthesia Reactions Family History FAMILY HISTORY: Positive Family Respiratory Disorders, Family Cancer and Family Surgery; Negative Family Psychiatric Problems, Family Cardiac Disorders, Family Gastrointestinal Problems or Family Anesthesia Reaction Surgical History SURGICAL: Negative Joint Replacement Social History SMOKING STATUS: Never smoker SECOND HAND EXPOSURE: No ED Exam General Limitations: Present no limitations General appearance: Present alert and in no apparent distress Head Head exam: Present atraumatic Eye Eye exam: Present normal appearance, PERRL and EOMI ENT ENT exam: Present normal exam, normal oropharynx and mucous membranes moist Neck Neck exam: Present normal inspection, full ROM and trachea midline Chest Chest inspection: Present normal inspection and symmetric chest wall rise Respiratory Respiratory exam: Present normal lung sounds bilaterally Cardiovascular Cardiovascular exam: Present regular rate, normal rhythm and normal heart sounds Abdominal Exam Abdominal exam: Present soft and normal bowel sounds Extremities Exam Extremities exam: Present normal inspection and full ROM Expanded Upper Extremity Exam Shoulder exam: Present normal inspection Arm exam: Present normal inspection Elbow exam: Present normal inspection Forearm/Wrist exam: Present normal inspection Hand exam: Present tenderness and swelling; Absent full ROM Vascular exam: Normal capillary refill Back Exam Back exam: Present normal inspection and full ROM Neurological Exam Neurological exam: Present alert, oriented X3 and CN II-XII intact Psychiatric Psychiatric exam: Present normal affect and normal mood Skin Skin exam: Present warm, dry, intact and normal color Course Quality Measures none Orders Category Date Time Status Ketorolac Inj [Toradol Inj] Med 01/24/25 16:27 Discontinued 30 mg .ROUTE .STK-MED ONE Vital Signs Vital signs: O2 saturation within normal limits close Extremity Injury MDM Narrative MDM Narrative:: 34-year-old male with no known medical history presents to the emergency room with a chief complaint of tenderness and swelling to the right hand after the patient punched a wall at 9 AM this morning Patient is hemodynamically stable and in no apparent distress. Physical examination shows tenderness and pain to the right hand as well as limited range of motion. X-ray of the right hand was completed and shows Patient data External records reviewed:: [facility] previous records Clinical information provided by:: patient Social determinants that could affect healthcare access:: none Patient has the following chronic illnesses:: No chronic illness How is presenting disease/condition affected by chronic disease/condition?: no chronic disease Evaluation data The following diagnostics were reviewed and interpreted by me:: lab results and radiology exam(s) Lab and/or radiology exams considered but not ordered:: Labs and radiology exams considered and ordered Interpretation Summary: Right hand x-ray- Medications / Prescriptions Medications or Prescriptions considered but not ordered:: Medication given Medication administrations:: Medication Administration History Discontinued Medications Ketorolac Tromethamine (Ketorolac Inj 30 Mg/Ml Vial) Confirm Administered Dose 30 mg .ROUTE .STK-MED ONE Stop: 01/24/25 16:28 Medication given Consultations Consultation(s) initiated? (list below): No Diagnosis Upper Extremity Injury Differential Diagnosis: fracture of hand and other (Right hand x-ray/right hand fracture) Admission Indicated Admission indicated?: not indicated Admission Request Was there a request for admission?: No Disposition Plan Disposition Plan: Discharge Discharge Attestation Discharge Attestation: The patient and all family members were given an opportunity to ask questions and understood the discharge instructions. Discharge instructions specifically effects, indications for sooner follow up or return to the emergency department, and the expected course of current diagnosis. Patient condition: Stable Discharge Plan Prescriptions/Referrals Prescriptions/Med Rec: No Action levetiracetam [Keppra] 1,000 mg tablet 1,000 mg PO BID Qty: 60 0RF prazosin 1 mg capsule 3 mg PO .qhs gabapentin 300 mg capsule 300 mg PO TID Patient Comments: TAKE 1 CAP THREE TIMES A DAY FOR MOOD lorazepam [Ativan] 1 mg tablet 1 mg PO TID MDD 4 PRN (Reason: alcohol withdrawal) Qty: 14 0RF Patient/Caregiver Discharge Instructions Print Language: Khmer
--- NOTE | 2025-01-24 17:23 | XR_ITS ---
Examination: Hand, right 3 views Technique: Hand AP, oblique, lateral 3 views Date and time of exam: January 24, 2025 8006 hours INDICATIONS: Injured hand today, hand pain FINDINGS: No acute fracture No dislocation No foreign body IMPRESSION: No acute fracture
--- NOTE | 2025-01-24 17:25 | PD.EDRME ---
Rapid Medical Screening Exam RME Arrival date/time: 01/24/25 16:03 34-year-old male with no known medical history presents to the emergency room with a chief complaint of tenderness and swelling to the right hand after the patient punched a wall at 9 AM this morning I have greeted and performed a focused initial assessment of this patient. A comprehensive ED assessment and evaluation of the patient, analysis of all test results, and completion of the medical decision making process will be conducted by additional ED providers. Chief Complaint: Hand/Wrist Problems Time Seen by Provider: 01/24/25 16:38 Vital signs reviewed by provider: Yes
[2025-01-24] MEDS: HYDROcodone/APAP 5/325 TABLET 1 TAB PO (18:53)
--- NOTE | 2025-01-24 19:08 | EDNOTE_ITS ---
Upper Extremity Injury RME/HPI General Chief Complaint: Hand/Wrist Problems Stated Complaint: Right hand pain Time Seen by Provider: 01/24/25 16:38 Source: patient Arrival date/time: 01/24/25 16:03 Mode of arrival: ambulatory Limitations: no limitations RME / HPI RME / HPI narrative: 01/24/25 16:03 34-year-old male with no known medical history presents to the emergency room with a chief complaint of tenderness and swelling to the right hand after the patient punched a wall at 9 AM this morning I have greeted and performed a focused initial assessment of this patient. A comprehensive ED assessment and evaluation of the patient, analysis of all test results, and completion of the medical decision making process will be conducted by additional ED providers. MD complaint: injury to: right Other Extremity Injury: Right: hand Other injuries: none Related Data Home Medications ?Medication ?Instructions ?Recorded ?Confirmed gabapentin 300 mg capsule 300 mg PO TID 01/07/2501/07 prazosin 1 mg capsule 3 mg PO .qhs 01/07/25 Previous Rx's ?Medication ?Instructions ?Recorded levetiracetam 1,000 mg tablet 1,000 mg PO BID #60 tabs 10/20/24 (Keppra) lorazepam 1 mg tablet (Ativan) 1 mg PO TID PRN alcohol withdrawal 12/27/24 #14 tabs Allergies Allergy/AdvReac Type Severity Reaction Status Date / Time sulfamethoxazole Allergy Intermediate VOMIT Verified 12/25/24 12:13 trimethoprim Allergy Intermediate VOMIT Verified 12/25/24 12:13 Review of Systems Constitutional Constitutional: Reports system reviewed and no additional complaints, except as documented Eyes Eyes: Reports system reviewed and no additional complaints, except as documented, Denies dry eyes, Denies exophthalmos and Reports floaters Cardiovascular Cardiovascular: Denies chest pain with activity and Denies claudication ED Exam General Limitations: Present no limitations General appearance: Present alert and in no apparent distress Head Head exam: Present atraumatic Eye Eye exam: Present normal appearance, PERRL and EOMI ENT ENT exam: Present normal exam, normal oropharynx and mucous membranes moist Neck Neck exam: Present normal inspection, full ROM and trachea midline Chest Chest inspection: Present normal inspection and symmetric chest wall rise Extremities Exam Extremities exam: Present normal inspection, full ROM, tenderness (There is tenderness to palpation at the MCP numbers 4 and 5. There is an abrasion present. Neurovascular is intact and there is no bleeding presently. There is no apparent bony deformity. Neurovascular is intact.), normal capillary refill and joint swelling Back Exam Back exam: Present normal inspection and full ROM Neurological Exam Neurological exam: Present alert and oriented X3 Psychiatric Psychiatric exam: Present normal affect and normal mood Skin Skin exam: Present warm, dry, intact (There is an abrasion present between MCP #4 and 5. There are also abrasions present. Note that the patient tells me the abrasions are old.) and normal color Course Quality Measures none Orders Category Date Time Status Dress wound [Wound Care] NOW Care 01/24/25 19:08 Completed XR hand comp RT min 3V Stat Exams 01/24/25 17:23 Completed HYDROcodone*/APAP 5/325 [[place] 5/325] Med 01/24/25 17:47 Discontinued 1 tab PO X1 ONE Ketorolac Inj [Toradol Inj] Med 01/24/25 16:27 Discontinued 30 mg .ROUTE .STK-MED ONE Ketorolac Inj [Toradol Inj] Med 01/24/25 16:22 Discontinued 30 mg IM X1 ONE Vital Signs Vital signs: Vital signs are within the normal limits. Extremity Injury MDM Narrative MDM Narrative:: Patient had an x-ray present the wound was dressed. Patient is discharged in no apparent distress. Patient data External records reviewed:: Other (specify) Clinical information provided by:: none Social determinants that could affect healthcare access:: none Patient has the following chronic illnesses:: None How is presenting disease/condition affected by chronic disease/condition?: no chronic disease Evaluation data The following diagnostics were reviewed and interpreted by me:: radiology exam(s) (I explained the results of the x-ray to the patient.) and other (specify) Lab and/or radiology exams considered but not ordered:: N/A Interpretation Summary: N/A Medications / Prescriptions Medications or Prescriptions considered but not ordered:: N/A Medication administrations:: Medication Administration History Discontinued Medications Hydrocodone Bitart/Acetaminophen (Hydrocodone/Apap 5/325 Tablet) 1 tab PO X1 ONE Stop: 01/24/25 17:48 Last Admin: 01/24/25 18:53 Dose: 1 tab Documented By: ADAM Ketorolac Tromethamine (Ketorolac Inj 30 Mg/Ml Vial) Confirm Administered Dose 30 mg .ROUTE .STK-MED ONE Stop: 01/24/25 16:28 Ketorolac Tromethamine (Ketorolac Inj 30 Mg/Ml Vial) 30 mg IM X1 ONE Stop: 01/24/25 16:23 Done Consultations Consultation(s) initiated? (list below): No Consultation #1 (Physician, Specialty, Details): N/A Diagnosis Upper Extremity Injury Differential Diagnosis: Colles' fracture and fracture of hand Most likely diagnosis given after review of the tests above:: Contusion hand Admission Indicated Admission indicated?: not indicated Admission Request Was there a request for admission?: No Disposition Plan Disposition Plan: Discharge Discharge Attestation Discharge Attestation: The patient and all family members were given an opportunity to ask questions and understood the discharge instructions. Discharge instructions specifically effects, indications for sooner follow up or return to the emergency department, and the expected course of current diagnosis. Patient condition: Stable Discharge Plan Plan Patient Disposition: HOME (Self Care) Discharge Disposition comment: Discharge in no apparent distress Patient condition on transfer: Stable Prescriptions/Referrals Prescriptions/Med Rec: No Action levetiracetam [Keppra] 1,000 mg tablet 1,000 mg PO BID Qty: 60 0RF prazosin 1 mg capsule 3 mg PO .qhs gabapentin 300 mg capsule 300 mg PO TID Patient Comments: TAKE 1 CAP THREE TIMES A DAY FOR MOOD lorazepam [Ativan] 1 mg tablet 1 mg PO TID MDD 4 PRN (Reason: alcohol withdrawal) Qty: 14 0RF Problem List Clinical Impression: Contusion Impression comment: Contusion Patient/Caregiver Discharge Instructions Discharge Activity: activity as tolerated Education Materials: Contusion Bone Tx Print Language: Latvian Stand Alone Forms: Tara Award Info., Patient Portal Info Letter PA/CISTERN ROOM WORKING SUPERVISOR Supervising Physician PA/CISTERN ROOM WORKING SUPERVISOR Supervising Physician: Erick Guevara
[2025-01-25] MEDS: KETOROLAC INJ 30 MG/ML VIAL IM (14:24)
== END 2025-01-24 19:14 | disposition home or self-care (01) ==
PROVIDERS: Emergency Provider Emergency Medicine; PCP Internal Medicine
DX: S60.221A Contusion of right hand, initial encounter (principal); W22.01XA Walked into wall, initial encounter
CPT/HCPCS: 73130; 96372; 99283; J1885; A9270

== ENCOUNTER 2025-02-01 13:58 | Emergency (ER) | payer MEDICAID, SELFPAY ==
[2025-02-01 14:14] VITALS: BP 128/82; PULSE 105; RESP 18; TEMP 37.1; O2SAT 97
--- NOTE | 2025-02-01 14:21 | EDRME_ITS ---
Rapid Medical Screening Exam [facility] Arrival date/time: 02/01/25 13:58 34-year-old male with history of recent admission to psychiatric facility presents stating that he believes that he is pre psychotic requesting admission to psychiatric facility Chief Complaint: Anxiety Vital signs: Vital Signs Temperature 98.8 F 02/01/25 14:14 Pulse Rate 105 H 02/01/25 14:14 Respiratory Rate 18 02/01/25 14:14 Blood Pressure 128/82 02/01/25 14:14 Pulse Oximetry (%) 97 02/01/25 14:14 Oxygen Delivery Method Room Air 02/01/25 14:14
--- NOTE | 2025-02-01 14:37 | PD.EDADULT ---
ED General RME/HPI General Chief complaint: Anxiety Stated complaint: ANXIETY; HEARING VOICES ; TAKES ATIVAN / ABILIFY Time Seen by Provider: 02/01/25 14:39 Arrival date/time: 02/01/25 13:58 Limitations: no limitations RME / HPI RME / HPI narrative: 02/01/25 13:58 34-year-old male with history of recent admission to psychiatric facility presents stating that he believes that he is pre psychotic requesting admission to psychiatric facility DR. GUTIERREZ MAIN ED EVALUATION: 34 year old male with past medical history significant for schizophrenia, PTSD, and recent psychiatric facility admission presents to the Emergency Department with complaint of auditory hallucinations. Patient states he is hearing voices that whisper in his ear, voices say to hurt others but no name given. He states he is complaint with his Abilify medication but it is not helping. Other PMHx includes back surgery, an effusion. Related Data Home Medications ?Medication ?Instructions ?Recorded ?Confirmed gabapentin 300 mg capsule 300 mg PO TID 01/07/25 01/07/25 prazosin 1 mg capsule 3 mg PO .qhs 01/07/25 01/07/25 Previous Rx's ?Medication ?Instructions ?Recorded levetiracetam 1,000 mg tablet 1,000 mg PO BID #60 tabs 10/20/24 (Keppra) lorazepam 1 mg tablet (Ativan) 1 mg PO TID PRN alcohol withdrawal 12/27/24 #14 tabs Allergies Allergy/AdvReac Type Severity Reaction Status Date / Time sulfamethoxazole Allergy Intermediate VOMIT Verified 02/01/25 14:02 trimethoprim Allergy Intermediate VOMIT Verified 02/01/25 14:02 Review of Systems Review of Systems Systems Reviewed: All systems reviewed, normal except as documented Past Medical History Past Medical History NEUROLOGIC: Positive Neurological Disorders and Seizures PSYCHO/SOCIAL: Positive Depression and Anxiety OTHER HISTORY: Positive Falls Family History FAMILY HISTORY: Positive Family Respiratory Disorders, Family Cancer and Family Surgery Social History SMOKING STATUS: Current every day smoker SECOND HAND EXPOSURE: No SUBSTANCE USE: does not use ALCOHOL: Never ED Exam General Limitations: Present no limitations General appearance: Present alert and in no apparent distress Head Head exam: Present atraumatic, normocephalic and normal inspection Eye Eye exam: Present normal appearance, PERRL and EOMI ENT ENT exam: Present normal exam, normal oropharynx and mucous membranes moist Neck Neck exam: Present normal inspection, full ROM and trachea midline Chest Chest inspection: Present normal inspection and symmetric chest wall rise Respiratory Respiratory exam: Present normal lung sounds bilaterally Cardiovascular Cardiovascular exam: Present regular rate, normal rhythm and normal heart sounds Abdominal Exam Abdominal exam: Present soft and normal bowel sounds Extremities Exam Extremities exam: Present normal inspection and full ROM Back Exam Back exam: Present normal inspection and full ROM Neurological Exam Neurological exam: Present alert, oriented X3 and CN II-XII intact Psychiatric Psychiatric exam: Present agitated and anxious Skin Skin exam: Present warm, dry, intact and normal color Course Quality Measures none Orders Category Date Time Status Alcohol, Urine Stat Lab 02/01/25 15:27 Completed CBC Stat Lab 02/01/25 14:56 Completed Comprehensive Metabolic Panel Stat Lab 02/01/25 14:56 Completed Drug Screen,Urine Stat Lab 02/01/25 15:27 Completed Reevaluation(s) Reevaluation #1: [facility] placed the patient on a 5150 hold, pending placement. Time: 17:22 Vital Signs Vital signs: Vital Signs Temperature 98.8 F 02/01/25 14:14 Pulse Rate 105 H 02/01/25 14:14 Respiratory Rate 18 02/01/25 14:14 Blood Pressure 128/82 02/01/25 14:14 Pulse Oximetry (%) 97 02/01/25 14:14 Oxygen Delivery Method Room Air 02/01/25 14:14 Discharge Plan Prescriptions/Referrals Prescriptions/Med Rec: No Action levetiracetam [Keppra] 1,000 mg tablet 1,000 mg PO BID Qty: 60 0RF prazosin 1 mg capsule 3 mg PO .qhs gabapentin 300 mg capsule 300 mg PO TID Patient Comments: TAKE 1 CAP THREE TIMES A DAY FOR MOOD lorazepam [Ativan] 1 mg tablet 1 mg PO TID MDD 4 PRN (Reason: alcohol withdrawal) Qty: 14 0RF Problem List Clinical Impression: Chronic schizophrenic Patient/Caregiver Discharge Instructions Print Language: Ukrainian [facility] Narrative Sign out note: 1800: Patient was signed out to Dr. Mclean. Past medical, surgical, social and family history reviewed. Vitals and home medications reviewed. Results and treatment plan discussed. They will assume the care of the patient at this time and will follow the patient, patient on a 5150 hold, pending placement. [facility] hospital course: I, Sarah Chacho, am scribing for and in the presence of Dr. Gutierrez. Clinical Information Provided by patient Medical Records Reviewed [facility] Meds/Rx Considered, not Ordered None Labs/Rad/Tests considered, not Ordered None Chronic Illness/Social Conditions which may negatively complicate care or outcome(s)-explain: Mental health Add or document further as needed: Schizophrenia, PTSD, and recent psychiatric facility admission. Other PMHx includes back surgery, an effusion. Lab Interpretation Labs: interpreted by il Lab(s) interpretation(s): Positive for alcohol. Imaging Imaging interpretation: none Medication Administration(s) none Diagnosis Differential diagnosis: Chronic schizophrenia, auditory hallucinations, anxiety Most likely dx, and/or detailed dx discussion: Chronic schizophrenia Dispositon Disposition: other (Signed out to Dr. Mclean.) Disposition comments: Patient on a 5150 hold, pending placement.
--- NOTE | 2025-02-01 14:50 | PC.NURSE ---
PT COMING FROM ED [facility]; PT REPORTS, I'M HEARING VOICES THAT TELLS ME TO HURT OTHER PEOPLE AND TO SECLUDE MYSELF. I ALSO SEE THINGS; IN THE DAYTIME, I SEE BUGS THAT AREN'T REALLY THERE, LIKE SPIDERS, AND IN THE NIGHT TIME, I SEE SHADOWY FIGURES THAT AREN'T REALLY THERE. PT REPORTS HAVING INTRUSIVE THOUGHTS ALL HIS LIFE BUT THAT AUDITORY HALLUCINATIONS ARE NEW AND HAVE BEEN OCCURING X1 MONTH SINCE STARTING ABILIFY. PT DENIES AH/VH AT THIS TIME AND DENIES SI/HI AT THIS TIME WELL. PMH SEIZURES, ANXIETY, BIPOLAR TYPE 1.
[2025-02-01 14:54] VITALS: BMI 34.6
[2025-02-01 15:18] LABS: Basophils % (Auto) 0 % (0-2.5); Eosinophils # (Auto) 0.2 Thou/mm3 (0.0-0.5); Eosinophils % (Auto) 3 % (0-10); Hematocrit 36.8 % (41.0-53.0); Hemoglobin 12.6 g/dL (13.5-16.0); Immature Granulocytes % (Auto) 0 % (0-0); Immature Granulocytes Auto 0.01 Thou/mm3 (0.00-0.00); Lymphocytes # (Auto) 1.2 Thou/mm3 (1.0-4.8); Lymphocytes % (Auto) 26 % (10-50); Mean Corpuscular HGB Conc 34.2 g/dl (31.0-37.0); Mean Corpuscular Hemoglobin 28.5 pg (25.0-35.0); Mean Corpuscular Volume 83 fL (80-100); Monocytes # (Auto) 0.5 Thou/mm3 (0.0-0.8); Monocytes % (Auto) 10 % (0-12); Neutrophils # (Auto) 2.8 Thou/mm3 (1.8-7.7); Neutrophils % (Auto) 60 % (37-80); Nucleated Red Blood Cell % 0 /100 WBC (0); Platelet Count 146 Thou/mm3 (140-440); RDW Standard Deviation 44.6 fL (35.1-43.9); Red Blood Count 4.42 Miln/mm3 (4.50-5.90); White Blood Count 4.7 Thou/mm3 (3.8-10.6)
[2025-02-01 15:31] LABS: Alanine Aminotransferase 26 U/L (10-49); Albumin, Serum 4.1 gm/dL (3.5-5.0); Albumin/Globulin Ratio 2.3 (1.2-2.2); Alkaline Phosphatase 83 U/L (46-116); Anion Gap 11 (7-16); Aspartate Amino Transferase 20 U/L (0-34); BUN/Creatinine Ratio 9 Ratio (12-20); Bilirubin,Total 0.4 mg/dL (0.3-1.2); Blood Urea Nitrogen 7 mg/dL (9-23); Calcium 8.4 mg/dL (8.3-10.6); Calcium (Corrected) 8.4 mg/dL (8.5-10.1); Carbon Dioxide 23.8 mMol/L (20.0-31.0); Chloride 109 mMol/L (98-107); Creatinine (Component) 0.8 mg/dL (0.6-1.3); Estimated Creatinine Clearance 159.3 mL/min (>60); Globulin 1.8 gm/dL (2.3-3.5); Glucose 100 mg/dL (74-106); Osmolality,Calculated 284 (275-295); Potassium 3.9 mMol/L (3.4-5.1); Sodium 144 mMol/L (136-145); Total Protein 5.9 gm/dL (5.7-8.2); eGFR > 60 See Note
[2025-02-01 16:33] LABS: Alcohol, Urine Positive (Negative); Amphetamine/Methamp Scrn,U Negative (Negative); Barbiturate Screen,Urine Negative (Negative); Benzodiazepines Screen,Urine Negative (Negative); Benzoylecgonine Screen, Ur Negative (Negative); Fentanyl Screen,Urine Negative (Negative); Opiate Screen,Urine Negative (Negative); THC Screen,Urine Negative (Negative)
[2025-02-01 16:53] VITALS: BP 142/92; PULSE 88; RESP 18; TEMP 36.6; O2SAT 97
--- NOTE | 2025-02-01 17:14 | PC.CC ---
JOCELYNE Cook completed a face to face mental health assessment with the pt at bedside in the ER #16. Pt is a 34 yo male who entered the ER requesting a mental health evaluation. Per provider, pt reports he is Bipolar I and Schizophrenic. Per provider, pt stated he is now experiencing auditory and visual hallucinations which are uncontrollable and are commanding. Upon entry, ASW introduced self, role, and reason for assessment. ASW disclosed limits of confidentiality as well. Patient appeared alert and oriented to self, place, and situation. Patient depressed and with flat affect. Patient reported that the past week he has not slept and reports he was diagnosed with Bipolar I disorder from [facility]. Pt reports that he is taking Abilify and reports that since he has been taking Abilify that his AVH has increased. Pt reports he says that the medication does not work on him because he is [place]. Pt reports the voices he hears tell him to hurt people, no one specific, but to hurt people if they look at him weird or different. Pt reports the voices are consistent and tell him to cause injury to random people who he does not know. Pt reports he feels unstable and is in a manic state. Pt reports he does not trust himself to be at home with his family, not that he will cause harm to them, but because he does not know how his behaviors will be at home. Pt reports the AVH is uncontrollable and his behavior is erratic at times. Pt denies SI, but states that he has passive thoughts of harming himself as well, and would not care if he did harm himself. Pt has no plan to harm himself. Because of the disclosure, fiction and nonfiction writer prose is unable to safety plan with the pt. ASW staffed with YOSELYN FULLER and it was decided to place the pt on a 5150 Hold DTS/DTO. ASW informed RN that pt is placed on a 5150 Hold ASW informed ER provider of the hold ASW will search for LPS placement.
--- NOTE | 2025-02-01 17:27 | PC.CC ---
Addendum entered by Zahra Cook 02/01/25 18:24: CORRECTION: Pt was accepted to [facility] at 1756, by Intake jovani, Accepting Dr. Polk, pt will go to [address]. [facility] WANTS PT THERE AT 2200. [facility] wants pt there at 2200. Call Report to [phone]. ASW contacted [facility] at [phone] and the p/u ETA is 2100. Addendum entered by Zahra Cook 02/01/25 18:06: Pt was accepted to [facility] at 1756, by Intake jovani, Accepting Dr. Polk, pt will go to [address]. [facility] wants pt there at 2200. Call Report to [phone]. Addendum entered by Zahra Cook 02/01/25 17:47: JOCELYNE Cook submitted packet to [facility] facilities via [employer] Original Note: JOCELYNE Cook completed a face to face mental health assessment with the pt at bedside in the ER #16. Pt is a 34 yo male who entered the ER requesting a mental health evaluation. Per provider, pt reports he is Bipolar I and Schizophrenic. Per provider, pt stated he is now experiencing auditory and visual hallucinations which are uncontrollable and are commanding. Upon entry, ASW introduced self, role, and reason for assessment. ASW disclosed limits of confidentiality as well. Patient appeared alert and oriented to self, place, and situation. Patient depressed and with flat affect. Patient reported that the past week he has not slept and reports he was diagnosed with Bipolar I disorder from [facility]. Pt reports that he is taking Abilify and reports that since he has been taking Abilify that his AVH has increased. Pt reports he says that the medication does not work on him because he is [place]. Pt reports the voices he hears tell him to hurt people, no one specific, but to hurt people if they look at him weird or different. Pt reports the voices are consistent and tell him to cause injury to random people who he does not know. Pt reports he feels unstable and is in a manic state. Pt reports he does not trust himself to be at home with his family, not that he will cause harm to them, but because he does not know how his behaviors will be at home. Pt reports the AVH is uncontrollable and his behavior is erratic at times. Pt denies SI, but states that he has passive thoughts of harming himself as well, and would not care if he did harm himself. Pt has no plan to harm himself. Because of the disclosure, automatic typewriter inspector is unable to safety plan with the pt. ASW staffed with YOSELYN FULLER and it was decided to place the pt on a 5150 Hold DTS/DTO. ASW informed RN that pt is placed on a 5150 Hold ASW informed ER provider of the hold ASW will search for LPS placement.
[2025-02-01 18:00] VITALS: BP 142/81; PULSE 78; RESP 18; TEMP 36.6; O2SAT 99
[2025-02-01] MEDS: LORazepam 0.5 MG TABLET 1 MG PO (18:13)
[2025-02-01] MEDS: levETIRAcetam 250 MG TABLET 1000 MG PO (20:03)
== END 2025-02-01 21:55 ==
LOC: SERX 17:11
PROVIDERS: Nurse Practitioner Primary Care; Emergency Provider Family Medicine; PCP Family Medicine
DX: Z04.6 Encounter for general psychiatric examination, requested by authority (principal); F20.9 Schizophrenia, unspecified; F32.A Depression, unspecified; F41.9 Anxiety disorder, unspecified; Z75.1 Person awaiting admission to adequate facility elsewhere
CPT/HCPCS: 36415; 80053; 80307; 80320; 85025; 90839; 96127; 99285; A9270; G0480

== ENCOUNTER 2025-02-16 17:29 | Emergency (ER) | payer MEDICAID, SELFPAY ==
[2025-02-16 17:29] VITALS: BMI 32.5
--- NOTE | 2025-02-16 17:47 | XR_ITS ---
Examination: PA lateral chest 2 views TECHNIQUE: Upright PA lateral chest 2 views Date and time: February 16, 2025 1820 hours Comparison October 09, 2024 INDICATIONS: Difficulty breathing 2 days. FINDINGS: Normal heart size No pneumonia or pulmonary edema Transpedicular upper thoracic stabilization IMPRESSION: No pneumonia or pulmonary edema
--- NOTE | 2025-02-16 17:47 | EKG_ITS ---
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
[2025-02-16 17:48] VITALS: BP 134/76; PULSE 83; RESP 20; TEMP 36.7; O2SAT 96
--- NOTE | 2025-02-16 17:48 | PD.EDRME ---
Rapid Medical Screening Exam RME Arrival date/time: 02/16/25 17:29 34-year-old male with a history of seizures presents to the emergency room with a chief complaint of bilateral lower extremity swelling x 2 days I have greeted and performed a focused initial assessment of this patient. A comprehensive ED assessment and evaluation of the patient, analysis of all test results, and completion of the medical decision making process will be conducted by additional ED providers. Chief Complaint: General Adult/Misc Complain Time Seen by Provider: 02/16/25 17:35 Vital signs reviewed by provider: Yes
[2025-02-16 18:11] LABS: Collection Type, Urine Clean Catch; Squamous Epithelial Cell,Urine 0 /hpf (0-5)
[2025-02-16 18:23] LABS: Amphetamine/Methamp Scrn,U Negative (Negative); Barbiturate Screen,Urine Negative (Negative); Benzodiazepines Screen,Urine Negative (Negative); Benzoylecgonine Screen, Ur Negative (Negative); Fentanyl Screen,Urine Negative (Negative); Opiate Screen,Urine Negative (Negative); THC Screen,Urine Negative (Negative)
[2025-02-16 18:34] LABS: Bilirubin,Urine Negative (Negative); Blood,Urine Negative (Negative); Clarity,Urine Clear (Clear/Hazy); Color,Urine Lt-Yellow (Lt Yel-Yel); Glucose, Urine Negative (Negative); Ketones,Urine Negative (Negative); Leukocyte Esterase,Urine Negative (Negative); Nitrite,Urine Negative (Negative); Protein,Urine Negative (Neg - Trace); RBC,Urine 1 /hpf (0-3); Specific Gravity,Urine 1.023 (1.001-1.035); Urobilinogen,Urine Negative mg/dL (0.0-1.0); WBC,Urine < 1 /hpf (0-5)
[2025-02-16 18:53] LABS: Basophils % (Auto) 1 % (0-2.5); Eosinophils # (Auto) 0.2 Thou/mm3 (0.0-0.5); Eosinophils % (Auto) 4 % (0-10); Hematocrit 36.9 % (41.0-53.0); Hemoglobin 12.8 g/dL (13.5-16.0); Immature Granulocytes % (Auto) 0 % (0-0); Immature Granulocytes Auto 0.01 Thou/mm3 (0.00-0.00); Lymphocytes # (Auto) 1.5 Thou/mm3 (1.0-4.8); Lymphocytes % (Auto) 26 % (10-50); Mean Corpuscular HGB Conc 34.7 g/dl (31.0-37.0); Mean Corpuscular Hemoglobin 28.1 pg (25.0-35.0); Mean Corpuscular Volume 81 fL (80-100); Monocytes # (Auto) 0.6 Thou/mm3 (0.0-0.8); Monocytes % (Auto) 10 % (0-12); Neutrophils # (Auto) 3.4 Thou/mm3 (1.8-7.7); Neutrophils % (Auto) 59 % (37-80); Nucleated Red Blood Cell % 0 /100 WBC (0); Platelet Count 237 Thou/mm3 (140-440); RDW Standard Deviation 43.2 fL (35.1-43.9); Red Blood Count 4.55 Miln/mm3 (4.50-5.90); White Blood Count 5.7 Thou/mm3 (3.8-10.6)
[2025-02-16 19:01] LABS: B-Type Natriuretic Peptide < 20 pg/mL (0-100)
[2025-02-16 19:02] LABS: Alanine Aminotransferase 29 U/L (10-49); Albumin, Serum 4.4 gm/dL (3.5-5.0); Albumin/Globulin Ratio 2.3 (1.2-2.2); Alkaline Phosphatase 80 U/L (46-116); Anion Gap 10 (7-16); BUN/Creatinine Ratio 9 Ratio (12-20); Bilirubin,Total 0.3 mg/dL (0.3-1.2); Blood Urea Nitrogen 9 mg/dL (9-23); Carbon Dioxide 24.8 mMol/L (20.0-31.0); Chloride 108 mMol/L (98-107); Estimated Creatinine Clearance 123.5 mL/min (>60); Globulin 1.9 gm/dL (2.3-3.5); Glucose 97 mg/dL (74-106); Osmolality,Calculated 283 (275-295); Sodium 143 mMol/L (136-145); Total Protein 6.3 gm/dL (5.7-8.2); Troponin I < 0.002 ng/mL (0.0-0.045); eGFR > 60 See Note
[2025-02-16 19:47] VITALS: BP 129/75; PULSE 67; RESP 20; TEMP 36.9; O2SAT 98
--- NOTE | 2025-02-16 19:57 | EDNOTE_ITS ---
ED General RME/HPI General Chief complaint: General Adult/Misc Complain Stated complaint: GENERALIZED BODY SWELLING FOR 2 DAYS Time Seen by Provider: 02/16/25 17:35 Arrival date/time: 02/16/25 17:29 Limitations: no limitations RME / HPI RME / HPI narrative: 02/16/25 17:29 34-year-old male with a history of seizures presents to the emergency room with a chief complaint of bilateral lower extremity swelling x 2 days I have greeted and performed a focused initial assessment of this patient. A comprehensive ED assessment and evaluation of the patient, analysis of all test results, and completion of the medical decision making process will be conducted by additional ED providers. 34-year-old male with a history of seizures presents to the emergency room with a chief complaint of bilateral lower extremity swelling x 2 days. States also having a flare up of his chronic back pain. of note pt has hx of mental issues. In past hx of attempted overdose. Also hx of alcohol abuse. no chest pain no sob. no fever Related Data Home Medications ?Medication ?Instructions ?Recorded ?Confirmed gabapentin 300 mg capsule 300 mg PO TID 01/07/2501/07 prazosin 1 mg capsule 3 mg PO .qhs 01/07/25 Previous Rx's ?Medication ?Instructions ?Recorded levetiracetam 1,000 mg tablet 1,000 mg PO BID #60 tabs 10/20/24 (Keppra) lorazepam 1 mg tablet (Ativan) 1 mg PO TID PRN alcohol withdrawal 12/27/24 #14 tabs furosemide 20 mg tablet (Lasix) 20 mg PO QAM #14 tabs 02/16/25 Allergies Allergy/AdvReac Type Severity Reaction Status Date / Time sulfamethoxazole Allergy Severe VOMIT Verified 02/16/25 17:31 trimethoprim Allergy Severe VOMIT Verified 02/16/25 17:31 Review of Systems Review of Systems Systems Reviewed: All systems reviewed, normal except as documented Constitutional Constitutional: Denies fever(s) Cardiovascular Cardiovascular: Denies chest pain and Denies dyspnea Respiratory Respiratory: Denies dyspnea Musculoskeletal Musculoskeletal: Reports as per HPI, Denies muscle cramps and Denies muscle weakness ED Exam General Limitations: Present no limitations General appearance: Present alert and in no apparent distress Eye Eye exam: Present normal appearance, PERRL and EOMI Respiratory Respiratory exam: Present normal lung sounds bilaterally Cardiovascular Cardiovascular exam: Present regular rate, normal rhythm and normal heart sounds Abdominal Exam Abdominal exam: Present soft and normal bowel sounds Extremities Exam Extremities exam: Present other (1+ edema bilateral ) Back Exam Back exam: Present normal inspection and full ROM Psychiatric Psychiatric exam: Present normal affect and normal mood Skin Skin exam: Present warm, dry, intact and normal color Course Quality Measures none Orders Category Date Time Status EKG (ED ONLY) *Do not use* NOW Care 02/16/25 17:47 Completed EKG (ED Only) Stat Exams 02/16/25 17:47 Draft XR chest 2V Stat Exams 02/16/25 17:47 Completed B-Type Natriuretic Peptide Stat Lab 02/16/25 17:58 Completed CBC Stat Lab 02/16/25 17:58 Completed Comprehensive Metabolic Panel Stat Lab 02/16/25 17:58 Completed Drug Screen,Urine Stat Lab 02/16/25 18:05 Completed Troponin I Stat Lab 02/16/25 17:58 Completed Urinalysis Stat Lab 02/16/25 18:05 Completed Ketorolac Inj [Toradol Inj] Med 02/16/25 19:57 Discontinued 30 mg IM X1 ONE Vital Signs Vital signs: Vital Signs Temperature 98.1 F 02/16/25 17:48 Pulse Rate 83 02/16/25 17:48 Respiratory Rate 20 02/16/25 17:48 Blood Pressure 134/76 H 02/16/25 17:48 Pulse Oximetry (%) 96 02/16/25 17:48 Oxygen Delivery Method Room Air 02/16/25 17:48 Procedures -ED EKG Interpretation #1: Date of EK02/16/25 Time of EK:50 Rate: 93 Interpretation: Interpreted by me EKG Impression: Normal sinus rhythm, No acute ST-T changes and No ectopy Discharge Plan Plan Patient Disposition: HOME (Self Care) Discharge Disposition comment: Follow-up with PCP in 2 to 3 days Prescriptions/Referrals Prescriptions/Med Rec: New furosemide [Lasix] 20 mg tablet 20 mg PO QAM Qty: 14 0RF No Action levetiracetam [Keppra] 1,000 mg tablet 1,000 mg PO BID Qty: 60 0RF prazosin 1 mg capsule 3 mg PO .qhs gabapentin 300 mg capsule 300 mg PO TID Patient Comments: TAKE 1 CAP THREE TIMES A DAY FOR MOOD lorazepam [Ativan] 1 mg tablet 1 mg PO TID MDD 4 PRN (Reason: alcohol withdrawal) Qty: 14 0RF Referrals: Lesley Flores MD [Primary Care Provider] - In 1 week Problem List Clinical Impression: Edema, Chronic back pain Patient/Caregiver Discharge Instructions Education Materials: ED Chronic Pain Print Language: Slovenian Stand Alone Forms: Tara Award Info., Patient Portal Info Letter PA/AGRICULTURAL INSPECTOR Supervising Physician PA/AGRICULTURAL INSPECTOR Supervising Physician: Dr. Mccray [facility] Narrative [facility] hospital course: pt remained stable throughout stay, did not require acute interventions other than toradol for chronic pain. Clinical Information Provided by patient Medical Records Reviewed [facility] Meds/Rx Considered, not Ordered Describe details: meds for back pain considered however given hx of mental health and over medicating self, advised f/u with pcp. Labs/Rad/Tests considered, not Ordered Describe details: cta of chest considered but given stable labs and no sob unlikely to change course of treatment today Chronic Illness/Social Conditions which may negatively complicate care or outcome(s)-explain: None or not applicable, Mental health, Hx of noncompliance and ETOH/drugs/substance abuse EKG EKG Interpretation narrative: no stemi or acute ischemia noted Lab Interpretation Lab(s) interpretation(s): cbc, cmp, trop, bnp and pertinent labs wnl Imaging Provider imaging interpretation(s): chest xray wnl Medication Administration(s) Medication Administration History Discontinued Medications Ketorolac Tromethamine (Ketorolac Inj 60 Mg/2 Ml Vial) 30 mg IM X1 ONE Stop: 02/16/25 19:58 Last Admin: 02/16/25 20:10 Dose: 30 mg Documented By: Diagnosis Differential diagnosis: chf, mi, pe, dvt, htn, edema from etoh/drugs Most likely dx, and/or detailed dx discussion: edema hx of drug abuse
[2025-02-16] MEDS: KETOROLAC INJ 60 MG/2 ML VIAL 30 MG IM (20:10)
== END 2025-02-16 20:16 | disposition home or self-care (01) ==
PROVIDERS: Nurse Practitioner Family; Emergency Provider Family Medicine; PCP Internal Medicine
DX: R60.9 Edema, unspecified (principal); M54.9 Dorsalgia, unspecified; G89.29 Other chronic pain; I49.3 Ventricular premature depolarization
CPT/HCPCS: 36415; 71046; 80053; 80307; 81001; 83880; 84484; 85025; 93005; 96372; 99283; J1885

== ENCOUNTER 2025-03-07 16:17 | Emergency (ER) | payer MEDICAID, SELFPAY ==
[2025-03-07 16:54] VITALS: BP 115/72; PULSE 119; RESP 18; TEMP 37.2; O2SAT 96; BMI 33.4
--- NOTE | 2025-03-07 17:11 | EDNOTE_ITS ---
ED Animal Bite RME/HPI General Chief Complaint: Animal Bite Stated Complaint: DOG BITE TO LEFT LOWER LEG Time Seen by Provider: 03/07/25 17:08 Arrival date/time: 03/07/25 16:17 This is a case of 34-year-old male who came into the emergency room due to leg laceration secondary to dog bite 4 hours prior to arrival in the emergency room patient dog vaccine is unknown patient Tdap vaccine is not up-to-date patient sustained a 4 cm laceration with minimal bleeding Limitations: no limitations Related Data Home Medications ?Medication ?Instructions ?Recorded ?Confirmed gabapentin 300 mg capsule 300 mg PO TID 01/07/2501/07 prazosin 1 mg capsule 3 mg PO .qhs 01/07/25 Previous Rx's ?Medication ?Instructions ?Recorded levetiracetam 1,000 mg tablet 1,000 mg PO BID #60 tabs 10/20/24 (Keppra) lorazepam 1 mg tablet (Ativan) 1 mg PO TID PRN alcohol withdrawal 12/27/24 #14 tabs furosemide 20 mg tablet (Lasix) 20 mg PO QAM #14 tabs 02/16/25 amoxicillin 875 mg-potassium 1 tab PO BID 10 days #20 tabs 03/07/25 clavulanate 125 mg tablet ibuprofen 800 mg tablet 800 mg PO Q8H PRN pain #20 t abs 03/07/25 mupirocin 2 % topical ointment 1 applic topical TID #2 2 grams 03/07/25 Allergies Allergy/AdvReac Type Severity Reaction Status Date / Time sulfamethoxazole Allergy Severe VOMIT Verified 03/07/25 16:18 trimethoprim Allergy Severe VOMIT Verified 03/07/25 16:18 Review of Systems Review of Systems Systems Reviewed: All systems reviewed, normal except as documented Constitutional Constitutional: Reports system reviewed and no additional complaints, except as documented and Reports as per HPI Cardiovascular Cardiovascular: Reports system reviewed and no additional complaints, except as documented and Reports as per HPI Respiratory Respiratory: Reports system reviewed and no additional complaints, except as documented and Reports as per HPI Gastrointestinal Gastrointestinal: Reports system reviewed and no additional complaints, except as documented and Reports as per HPI Genitourinary Genitourinary: Reports system reviewed and no additional complaints, except as documented and Reports as per HPI Musculoskeletal Musculoskeletal: Reports other (Leg pain) Integumentary/Breasts Skin/Breast: Reports other (Leg laceration) Neurologic Neurologic: Reports system reviewed and no additional complaints, except as documented and Reports as per HPI Past Medical History Past Medical History NEUROLOGIC: Positive Neurological Disorders and Seizures CARDIAC: Negative Cardiac Disorders or Congestive Heart Failure RESPIRATORY: Negative Chronic Obstructive Pulmonary Disease (COPD) GASTROINTESTINAL: Negative Gastrointestinal Disorders GENITOURINARY: Negative Genitourinary Disorders or Renal Disease MUSCULOSKELETAL: Negative Musculoskeletal Disorders ENDOCRINE: Negative Endocrine Disorders, Diabetes Mellitus Type 1 or Diabetes Mellitus Type 2 HEMATOLOGIC: Negative Blood Disorders PSYCHO/SOCIAL: Positive Depression and Anxiety OTHER HISTORY: Positive Hospitalization and Falls; Negative Autoimmune Disease, Blood Transfusions, Blood Transfusion Reaction or Anesthesia Reactions Family History FAMILY HISTORY: Positive Family Respiratory Disorders, Family Cancer and Family Surgery; Negative Family Psychiatric Problems, Family Cardiac Disorders, Family Gastrointestinal Problems or Family Anesthesia Reaction Surgical History SURGICAL: Negative Joint Replacement Social History SMOKING STATUS: Former smoker SECOND HAND EXPOSURE: No SUBSTANCE USE: does not use ED Exam General Limitations: Present no limitations General appearance: Present alert and in no apparent distress Head Head exam: Present atraumatic Eye Eye exam: Present normal appearance, PERRL and EOMI ENT ENT exam: Present normal exam, normal oropharynx and mucous membranes moist Neck Neck exam: Present normal inspection, full ROM and trachea midline Chest Chest inspection: Present normal inspection and symmetric chest wall rise Respiratory Respiratory exam: Present normal lung sounds bilaterally; Absent respiratory distress, wheezes, stridor, accessory muscle use or prolonged expiratory phase Cardiovascular Cardiovascular exam: Present regular rate, normal rhythm and normal heart sounds; Absent bradycardia, tachycardia, irregular rhythm or systolic murmur Abdominal Exam Abdominal exam: Present soft and normal bowel sounds; Absent tenderness or guarding Extremities Exam Extremities exam: Present normal inspection and full ROM Expanded Lower Extremity Exam Lower leg exam: Present full ROM and other (Noted a 4 cm linear laceration mini mal bleeding involvement only skin and subcutaneous no tendon no muscle no bony injury ROM intact neurovascular intact no foreign body); Absent tenderness, swelling, abrasion, laceration, ecchymosis, deformity, crepitus, dislocation, erythema, palpable cord, Homans' sign or Achilles tendon intact Back Exam Back exam: Present normal inspection and full ROM Neurological Exam Neurological exam: Present alert, oriented X3, CN II-XII intact, normal gait and reflexes normal; Absent motor sensory deficit Psychiatric Psychiatric exam: Present normal affect and normal mood Skin Skin exam: Present warm, dry, intact, normal color and other (Leg laceration) Course Quality Measures none Orders Category Date Time Status HYDROcodone*/APAP 5/325 [[place] 5/325] Med 03/07/25 17:10 Once 1 tab PO X1 ONE Lidocaine 1% 20 ml [Xylocaine 1% 20 ML] Med 03/07/25 17:11 Once 10 ml INFL X1 ONE TET,DIP/PERT AC (Adult)-Tdap [Boostrix Adult (Tdap) Med 03/07/25 17:08 Discontinued Vacc] 0.5 ml IMI .ONCE ONE Vital Signs Vital signs: Vital Signs Temperature 98.9 F 03/07/25 16:54 Pulse Rate 119 H 03/07/25 16:54 Respiratory Rate 18 03/07/25 16:54 Blood Pressure 115/72 03/07/25 16:54 Pulse Oximetry (%) 96 03/07/25 16:54 Oxygen Delivery Method Room Air 03/07/25 16:54 Oxygen saturation 96% in room air PROCEDURES: Laceration Laceration 1: Site: other (Left leg) Side (If applicable): left Size (cm): 4 Description: linear Depth: simple, single layer Local Anesthetic: lidocaine 1% Amount of anesthesia used (mL): 6 Pre-repair: wound explored, irrigated extensively and deep structures intact Skin layer closed with: nylon Suture size (cm): 4-0 Number of sutures: 8 Technique: simple, interrupted Animal Bite MDM Narrative MDM Narrative:: This is a case of 34-year-old male who came into the emergency room due to leg laceration secondary to dog bite 4 hours prior to arrival in the emergency room patient dog vaccine is unknown patient Tdap vaccine is not up-to-date patient sustained a 4 cm laceration with minimal bleeding physical examination noted a 4 cm laceration minimal bleeding no foreign body no tendon no bone no muscle injury ROM intact neurovascular intact laceration repair was performed patient tolerated well the procedure procedure done via [place] protocol and via sterile technique the I have a long discussion with the patient regarding rabies vaccine patient will follow-up with PCP or [facility] if he needs the rabies vaccine patient was given Tdap here in the emergency room patient was discharged with Augmentin and mupirocin to prevent infection and Motrin for pain patient will follow-up with PCP in 2 days for reevaluation and wound check and in 10 days for removal of suture for any signs and symptoms of infection he is informed to return in the emergency room immediately or call 911 Patient was discharged with comfortable condition walking with stable gait. Patient verbalized no further complains explained diagnosis and answered patient question. Patient is comfortable with the proposed management plan including the need to follow up with his/her primary care physician and any specialist if applicable Discussed patient for any urgent condition or worsening sx, He/She needed to go to emergency room immediately or call 911. Patient acknowledge the responsibility to follow up as instructed and to monitor her/his symptoms. For any persistence of the symptoms for more than 3-5 days return precaution advised. Discussed the result of the test and was given printed discharge instruction Patient data External records reviewed:: [facility] previous records Clinical information provided by:: patient Social determinants that could affect healthcare access:: none Patient has the following chronic illnesses:: None How is presenting disease/condition affected by chronic disease/condition?: no chronic disease Evaluation data The following diagnostics were reviewed and interpreted by me:: other (specify) (None) Lab and/or radiology exams considered but not ordered:: None Interpretation Summary: None Medications / Prescriptions Medications or Prescriptions considered but not ordered:: Given Medication administrations:: Medication Administration History Hydrocodone Bitart/Acetaminophen (Hydrocodone/Apap 5/325 Tablet) 1 tab PO X1 ONE Stop: 03/07/25 17:11 Lidocaine HCl (Lidocaine Hcl 1% 20 Ml Vial) 10 ml INFL X1 ONE Stop: 03/07/25 17:12 Discontinued Medications Diphtheria/Tetanus/Acell Pertussis (Diphth,Pertuss(Acell),Tet Vac 0.5 Ml Syr- Adult) 0.5 ml IMi .ONCE ONE Stop: 03/07/25 17:09 Given Consultations Consultation(s) initiated? (list below): No Diagnosis Differential diagnosis animal bite: bite by animal and dog bite Most likely diagnosis given after review of the tests above:: Dog bite laceration leg Admission Indicated Admission indicated?: not indicated Explain why admission is indicated or not indicated:: Not indicated Admission Request Was there a request for admission?: No Admission Attestation Admission request attestation: Not indicated Disposition Plan Disposition Plan: Discharge Discharge Attestation Discharge Attestation: The patient and all family members were given an opportunity to ask questions and understood the discharge instructions. Discharge instructions specifically effects, indications for sooner follow up or return to the emergency department, and the expected course of current diagnosis. Patient condition: Stable Discharge Plan Plan Patient Disposition: HOME (Self Care) Patient condition on transfer: Stable Prescriptions/Referrals Prescriptions/Med Rec: New amoxicillin-pot clavulanate 875-125 mg tablet 1 tab PO BID 10 Days Qty: 20 0RF ibuprofen 800 mg tablet 800 mg PO Q8H PRN (Reason: pain) Qty: 20 0RF mupirocin 2 % ointment 1 applic topical TID Qty: 22 0RF No Action levetiracetam [Keppra] 1,000 mg tablet 1,000 mg PO BID Qty: 60 0RF prazosin 1 mg capsule 3 mg PO .qhs gabapentin 300 mg capsule 300 mg PO TID Patient Comments: TAKE 1 CAP THREE TIMES A DAY FOR MOOD furosemide [Lasix] 20 mg tablet 20 mg PO QAM Qty: 14 0RF lorazepam [Ativan] 1 mg tablet 1 mg PO TID MDD 4 PRN (Reason: alcohol withdrawal) Qty: 14 0RF Problem List Clinical Impression: Dog bite, Laceration of leg Patient/Caregiver Discharge Instructions Education Materials: ED Animal Bite (General), ED Dog Bite, ED Laceration: All Closures Additional Instructions: Follow-up with your primary care physician in 2 days for reevaluation and wound check in 10 days for removal of suture it is important to see your primary care physician or go to [facility] for your rabies vaccine if possible for any worsening symptoms or any emergent concerns such as redness swelling discharge from the wound fever chills call them the nearest emergency room or call 911 take your medication as directed finish the course of antibiotic keep the wound clean and dry Print Language: Thai Stand Alone Forms: Tara Award Info., Patient Portal Info Letter PA/TRADEMARK ATTORNEY Supervising Physician PA/TRADEMARK ATTORNEY Supervising Physician: dr ramirez
[2025-03-07] MEDS: HYDROcodone/APAP 5/325 TABLET 1 TAB PO (17:53)
[2025-03-07] MEDS: DIPHTH,PERTUSS(ACELL),TET VAC 0.5 ML SYR- ADULT IMi (17:54)
[2025-03-07] MEDS: LIDOCAINE HCL 1% 20 ML VIAL 10 ML INFL (17:55)
== END 2025-03-07 18:29 | disposition home or self-care (01) ==
LOC: SERX 17:10
PROVIDERS: Emergency Provider Emergency Medicine
DX: S81.852A Open bite, left lower leg, initial encounter (principal); W54.0XXA Bitten by dog, initial encounter; Z23 Encounter for immunization
CPT/HCPCS: 12002; 90471; 90715; 99283; J3490; A9270

== ENCOUNTER 2025-03-18 10:55 | Emergency (ER) | payer MEDICAID, SELFPAY ==
[2025-03-18 10:59] VITALS: BP 122/80; PULSE 88; RESP 18; TEMP 36.6; O2SAT 99; BMI 32.9
--- NOTE | 2025-03-18 11:01 | PD.EDWOUND ---
ED Wound/Laceration-RME/HPI General Chief Complaint: Wound Recheck / Suture Removal Stated Complaint: Need suture removal Time Seen by Provider: 03/18/25 10:56 Arrival date/time: 03/18/25 10:55 34-year-old male presents to the emergency department today requesting suture removal patient is sutures in place left lower extremity Limitations: no limitations Related Data Home Medications ?Medication ?Instructions ?Recorded ?Confirmed gabapentin 300 mg capsule 300 mg PO TID 01/07/25 01/07/25 prazosin 1 mg capsule 3 mg PO .qhs 01/07/25 01/07/25 Previous Rx's ?Medication ?Instructions ?Recorded levetiracetam 1,000 mg tablet 1,000 mg PO BID #60 tabs 10/20/24 (Keppra) lorazepam 1 mg tablet (Ativan) 1 mg PO TID PRN alcohol withdrawal 12/27/24 #14 tabs furosemide 20 mg tablet (Lasix) 20 mg PO QAM #14 tabs 02/16/25 ibuprofen 800 mg tablet 800 mg PO Q8H PRN pain #20 tabs 03/07/25 mupirocin 2 % topical ointment 1 applic topical TID #22 grams 03/07/25 Allergies Allergy/AdvReac Type Severity Reaction Status Date / Time sulfamethoxazole Allergy Severe VOMIT Verified 03/18/25 10:57 trimethoprim Allergy Severe VOMIT Verified 03/18/25 10:57 Review of Systems Review of Systems Systems Reviewed: All systems reviewed, normal except as documented Constitutional Constitutional: Reports system reviewed and no additional complaints, except as documented, Denies fever(s) and Denies headache(s) Eyes Eyes: Reports system reviewed and no additional complaints, except as documented and Denies blurry vision ENT Ears, Nose, Mouth, and Throat: Reports system reviewed and no additional complaints, except as documented, Denies headache(s), Denies nasal congestion and Denies nasal discharge Cardiovascular Cardiovascular: Reports system reviewed and no additional complaints, except as documented, Denies chest pain and Denies dyspnea Respiratory Respiratory: Reports system reviewed and no additional complaints, except as documented, Denies chest congestion, Denies cough and Denies dyspnea Gastrointestinal Gastrointestinal: Reports system reviewed and no additional complaints, except as documented and Denies abdominal pain Integumentary/Breasts Skin/Breast: Reports system reviewed and no additional complaints, except as documented, Denies rash and Reports wounds (Sutures in place left lower extremity) Neurologic Neurologic: Reports system reviewed and no additional complaints, except as documented, Reports as per HPI and Denies headache(s) Past Medical History Past Medical History NEUROLOGIC: Positive Neurological Disorders and Seizures CARDIAC: Negative Cardiac Disorders or Congestive Heart Failure RESPIRATORY: Negative Chronic Obstructive Pulmonary Disease (COPD) GASTROINTESTINAL: Negative Gastrointestinal Disorders GENITOURINARY: Negative Genitourinary Disorders or Renal Disease MUSCULOSKELETAL: Negative Musculoskeletal Disorders ENDOCRINE: Negative Endocrine Disorders, Diabetes Mellitus Type 1 or Diabetes Mellitus Type 2 HEMATOLOGIC: Negative Blood Disorders PSYCHO/SOCIAL: Positive Depression and Anxiety OTHER HISTORY: Positive Hospitalization and Falls; Negative Autoimmune Disease, Blood Transfusions, Blood Transfusion Reaction or Anesthesia Reactions Family History FAMILY HISTORY: Positive Family Respiratory Disorders, Family Cancer and Family Surgery; Negative Family Psychiatric Problems, Family Cardiac Disorders, Family Gastrointestinal Problems or Family Anesthesia Reaction Surgical History SURGICAL: Negative Joint Replacement Social History SMOKING STATUS: Former smoker SECOND HAND EXPOSURE: No SUBSTANCE USE: does not use ED Exam General Limitations: Present no limitations General appearance: Present alert and in no apparent distress Head Head exam: Present atraumatic Eye Eye exam: Present normal appearance, PERRL and EOMI ENT ENT exam: Present normal exam, normal oropharynx and mucous membranes moist Neck Neck exam: Present normal inspection, full ROM and trachea midline Chest Chest inspection: Present normal inspection and symmetric chest wall rise Respiratory Respiratory exam: Present normal lung sounds bilaterally Cardiovascular Cardiovascular exam: Present regular rate, normal rhythm and normal heart sounds Abdominal Exam Abdominal exam: Present soft and normal bowel sounds Extremities Exam Extremities exam: Present normal inspection and full ROM Back Exam Back exam: Present normal inspection and full ROM Neurological Exam Neurological exam: Present alert, oriented X3 and CN II-XII intact Psychiatric Psychiatric exam: Present normal affect and normal mood Skin Skin exam: Present warm, dry and other (Sutures in place left lower extremity) Course Quality Measures none Vital Signs Vital signs: Vital Signs Temperature 98 F 03/18/25 10:59 Pulse Rate 88 03/18/25 10:59 Respiratory Rate 18 03/18/25 10:59 Blood Pressure 122/80 03/18/25 10:59 Pulse Oximetry (%) 99 03/18/25 10:59 Oxygen Delivery Method Room Air 03/18/25 10:59 O2 saturation 99% on room air within normal limits Wound / Laceration MDM Narrative MDM Narrative:: 34-year-old male presents to the emergency department today requesting suture removal patient is sutures in place left lower extremity On exam patient has sutures in place left lower extremity no evidence of infection Sutures removed in their entirety Patient discharged home in no distress to follow-up with primary care doctor in the next 24 to 48 hours and for any worsening symptoms to return to the ER immediately Patient data External records reviewed:: [facility] previous records Clinical information provided by:: patient Social determinants that could affect healthcare access:: none Patient has the following chronic illnesses:: None How is presenting disease/condition affected by chronic disease/condition?: no chronic disease Evaluation data The following diagnostics were reviewed and interpreted by me:: other (specify) (N/A) Lab and/or radiology exams considered but not ordered:: Consider not ordered Interpretation Summary: N/A Medications / Prescriptions Medications or Prescriptions considered but not ordered:: Given no meds Medication administrations:: Given no meds Consultations Consultation(s) initiated? (list below): No Diagnosis Wound Differential Diagnosis: laceration, abrasion and avulsion of skin Most likely diagnosis given after review of the tests above:: Suture removal Admission Indicated Admission indicated?: not indicated Admission Request Was there a request for admission?: No Disposition Plan Disposition Plan: Discharge Discharge Attestation Discharge Attestation: The patient and all family members were given an opportunity to ask questions and understood the discharge instructions. Discharge instructions specifically effects, indications for sooner follow up or return to the emergency department, and the expected course of current diagnosis. Patient condition: Stable Discharge Plan Plan Patient Disposition: HOME (Self Care) Discharge Disposition comment: Stable Prescriptions/Referrals Prescriptions/Med Rec: No Action levetiracetam [Keppra] 1,000 mg tablet 1,000 mg PO BID Qty: 60 0RF prazosin 1 mg capsule 3 mg PO .qhs gabapentin 300 mg capsule 300 mg PO TID Patient Comments: TAKE 1 CAP THREE TIMES A DAY FOR MOOD furosemide [Lasix] 20 mg tablet 20 mg PO QAM Qty: 14 0RF ibuprofen 800 mg tablet 800 mg PO Q8H PRN (Reason: pain) Qty: 20 0RF mupirocin 2 % ointment 1 applic topical TID Qty: 22 0RF lorazepam [Ativan] 1 mg tablet 1 mg PO TID MDD 4 PRN (Reason: alcohol withdrawal) Qty: 14 0RF Problem List Clinical Impression: Encounter for removal of sutures Patient/Caregiver Discharge Instructions Education Materials: Suture Care Additional Instructions: Please follow up with your primary care doctor in the next 24-48hrs for any worsening symptoms return here immediately Print Language: Russian Stand Alone Forms: Tara Award Info., Patient Portal Info Letter PA/SUPPLY CHAIN MANAGER Supervising Physician PA/SUPPLY CHAIN MANAGER Supervising Physician: Dr cheng
== END 2025-03-18 11:15 | disposition home or self-care (01) ==
LOC: SERX 11:13
PROVIDERS: Emergency Provider Emergency Medicine; PCP Family Medicine
DX: S81.812D Laceration without foreign body, left lower leg, subsequent encounter (principal); X58.XXXD Exposure to other specified factors, subsequent encounter
CPT/HCPCS: 99284